=== PATIENT | female | born 1945 | race Hispanic/Latino ===

== ENCOUNTER 2017-09-25 13:42 | Outpatient (CLI) | payer MEDICARE, OTHER | END 2017-09-25 13:43 | disposition home or self-care (01) | LOC: BICRAD 13:42 | PROVIDERS: ATTEND Internal Medicine | DX: R05 Cough (principal); J81.1 Chronic pulmonary edema; I51.7 Cardiomegaly; R09.89 Other specified symptoms and signs involving the circulatory and respiratory systems | CPT/HCPCS: 71046 ==

== ENCOUNTER 2018-02-25 14:09 | Inpatient (IN) | payer MEDICARE, OTHER ==
[2018-02-25] MEDS ORDERED: Ibuprofen 200 MG TAB ONE (14:28)
[2018-02-25 15:48] LABS: #Lymphocytes 0.3 thou/uL (1.20-3.40); #Monocytes 0.7 thou/uL (0.11-0.59); #Neutrophils 5.1 thou/uL (1.40-6.50); %Basophils 0.2 % (0.0-1.0); %Eosinophils 0.5 % (0.0-10.0); %Lymphocytes 5.4 % (21.0-51.0); %Monocytes 11.9 % (0.0-10.0); Hemoglobin 10.3 g/dL (12.0-16.0); INR-International Normal Ratio 1.2; Mean Corpuscular HGB CONC 32.4 g/dL (32.0-36.0); Mean Corpuscular Hemoglobin 33.5 pg (27.0-31.0); Mean Platelet Volume 8.8 fL (7.4-10.4); PTT 30.2 SEC (22.9-36.1); Platelet Count 81 thou/uL (130-400); Prothrombin Time 15.5 SEC (12.0-14.7); RBC Distribution Width 14.4 % (11.5-14.5); Red Blood Cell (RBC) Count 3.06 mill/uL (4.20-5.40); White Blood Cell (WBC) Count 6.2 thou/uL (4.8-10.8)
--- NOTE | 2018-02-25 15:48 | RAD ---
PORTABLE CHEST: Date: 02/25/18 HISTORY: Lower extremity swelling with fever. COMPARISON: 11/23/15. FINDINGS: Heart size is enlarged. Postop sternotomy changes are seen. Pulmonary vessels are prominent centrally . Atherosclerotic changes are seen in the aorta. Some chronic blunting to the right costophrenic angl e is seen, and some chronic lung change. IMPRESSION: Cardiomegaly with chronic lung changes. POS: [facility]
[2018-02-25 15:54] LABS: ALT (SGPT) Less than 7 U/L (8-55); AST (SGOT) 12 U/L (5-34); Albumin 3.7 g/dL (3.4-4.8); Alkaline Phosphatase 91 U/L (40-150); Anion Gap 12 mmol/L (10-20); BUN (Urea Nitrogen) 17 mg/dL (9.8-20.1); Bilirubin, Total 2.2 mg/dL (0.2-1.2); Calc. Creatinine Clearance 0 mL/min (70-130); Calcium 9.1 mg/dL (7.8-10.44); Carbon Dioxide 33 mmol/L (23-31); Chloride 96 mmol/L (98-107); Estimated GFR-MDRD 11; Globulin 2.8 g/dL (2.4-3.5); Glucose 94 mg/dL (83-110); Potassium 3.8 mmol/L (3.5-5.1); Protein, Total 6.5 g/dL (6.0-8.3); Sodium 137 mmol/L (136-145)
--- NOTE | 2018-02-25 15:57 | ULT ---
LEFT LOWER EXTREMITY VENOUS DUPLEX ULTRASOUND INCLUDING COLOR AND SPECTRAL DOPPLER IMAGING: Date: 02/25/18 HISTORY: 73-year-old female with history of left lower extremity pain, swelling, and edema for 2 weeks. TECHNIQUE: Exam performed from groin to ankle including visualized greater saphenous, common femoral, superficia l femoral, profunda femoral, popliteal, trifurcation, and posterior tibial vein regions. FINDINGS: There is a somewhat exaggerated waveform noted. No evidence for intraluminal thrombus. Phasic flow is noted at all levels. IMPRESSION: No evidence for deep venous thrombosis. Somewhat exaggerated waveform. POS: [facility]
[2018-02-25 16:14] LABS: Bilirubin Negative (Negative); Blood, Urine Small (Negative); Clarity TURBID (Clear); Glucose, Urine (Dipstick) Negative (Negative); Leukocyte Large (Negative); Nitrite Negative (Negative); Protein, Urine (Dipstick) 300 mg/dL (Neg-Trace); Urobilinogen 0.2 mg/dL (0.2-1.0); pH, Urine 7.5 (5.0-9.0)
[2018-02-25 16:16] LABS: Squamous Epithelial 21-50 HPF (0-3)
[2018-02-25 16:21] LABS: Pathc Cast-AUWi Flag 7.07 (0-2.49); Yeast-AUWi Flag 130.2 (0-25.0)
[2018-02-25 16:34] LABS: Bacteria/HPF 4+ HPF (None Seen); Hyaline Casts/LPF NONE SEEN LPF (0-3 Hyaline); Manual Microscopic Reviewed? No Path Casts Seen
[2018-02-25] MEDS ORDERED: cefTRIAXone\\ROCEPHIN 1 GM VIAL ONE (17:13)
[2018-02-25] MEDS ORDERED: Vancomycin HCl 1 GM in Premix Bag 1 BAG IVPB SCH (20:00)
[2018-02-26] MEDS ORDERED: Senokot 8.6 MG TAB PO PRN (05:06)
[2018-02-26] MEDS ORDERED: Bisacodyl 5 MG TAB PO PRN (05:06)
[2018-02-26] MEDS ORDERED: Acetaminophen 325 MG TAB PO PRN (05:06)
[2018-02-26] MEDS ORDERED: Bisacodyl 10 MG SUPP PR PRN (05:06)
[2018-02-26] MEDS ORDERED: cefTRIAXone\\ROCEPHIN 1 GM in Sodium Chloride 0.9% 100 ML IVPB SCH (06:00)
[2018-02-26] MEDS: Sevelamer Carbonate 800 MG TAB PO SCH ×4 (08:02→16:48)
[2018-02-26] MEDS: Aspirin 81 mg Enteric Coated Tablet PO SCH (08:04)
[2018-02-26] MEDS: Amlodipine 10 MG TAB PO SCH (08:04)
[2018-02-26] MEDS: hydrALAZINE 25 MG TAB PO SCH ×3 (08:05→20:38)
[2018-02-26] MEDS: Carvedilol 25 MG TAB PO SCH ×2 (08:06→15:24)
[2018-02-26] MEDS: Heparin 5,000 UNITS/ML VIAL SC SCH ×3 (08:18→20:37)
[2018-02-26] MEDS ORDERED: cloNIDine 0.2mg/24 Hour PATCH TD SCH (09:00)
[2018-02-26] MEDS ORDERED: Prevnar 13-Val Conj/PF 0.5 ML SYRINGE IM ONE (09:00)
[2018-02-26] MEDS ORDERED: Epoetin (ESRD) 20,000 UNITS/ML SC SCH (09:30)
[2018-02-26] MEDS: Docusate 100 MG CAP PO SCH ×2 (10:20→20:35)
--- NOTE | 2018-02-26 10:21 | CON ---
DATE OF CONSULTATION: 02/26/2018 HISTORY OF PRESENT ILLNESS: Ms. Augustine is a 73-year-old female with known history of ESRD and reported today due to severe left leg pain. The pain was described as burning sensation. There was also some degree of left leg edema. A Doppler was done which showed no DVT. Further review of the left leg pain may suggest this is a neuropathy. She describes this as burning sensation. In add ition, the patient has had history of neuropathy in the past. We are being consulted for her mainten ance hemodialysis. Her BNP was noted to be elevated. She had a shortened treatment with her dialysi s yesterday and for that reason, we will do a short 2 hour hemodialysis today with fluid removal as t olerated by the patient. REVIEW OF SYSTEMS: Positive for left leg pain. No chest pain or shortness of breath, no nausea, no vomiting, no diarrhea. The patient reports intermittent fever - this is chronic in nature. No abdom inal pain, no nausea, no vomiting. Appetite and energy level is fair. No headache, no sore throat, no hematochezia, no melena, no hematemesis, no syncopal episode. Occasional joint pains. No gross h ematuria, no dysuria. MEDICATIONS: Norvasc 10 mg daily, Ecotrin 81 mg q.a.m., Dulcolax p.r.n., Coreg 12.5 mg b.i.d., ceftr iaxone 1 gram q.24 hours, clonidine patch TTS 2 q. week, Colace 100 mg p.o. b.i.d., heparin 5000 unit s subcu t.i.d., hydralazine 100 mg p.o. t.i.d., losartan 100 mg at bedtime, Renvela 800 mg 3 tabs t.i .d. with meals. PAST MEDICAL HISTORY: 1. ESRD, currently on maintenance hemodialysis of Friday, Friday, Friday. 2. Status post congestive heart failure. 3. History of hypertension. 4. Coronary artery disease. 5. Diabetes mellitus, on diet alone. 6. History of neuropathy. PAST SURGICAL HISTORY: 1. Status post cuffed hemodialysis catheter placement. 2. Status post AV fistula placement. 3. Status post appendectomy. 4. Status post cholecystectomy. 5. Status post exploratory laparotomy. 6. Status post cardiac catheterization. 7. Status post PEG tube placement with subsequent removal. 8. Status post coronary artery bypass graft. SOCIAL HISTORY: Patient lives with her . Lives in [place]. Several children. No history of smoking, no alcohol intake. Status post multiple blood transfusions. No IV drug abuse. Education; high school. ALLERGIES: None. TRAUMA: None. IMMUNIZATIONS: Up to date. HOSPITALIZATIONS: Please see past medical history. FAMILY HISTORY: Positive family history of ESRD. PHYSICAL EXAMINATION: VITAL SIGNS: Blood pressure 145/72, heart rate 66, respiratory rate 18, temperature 98.6, pulse ox 9 3%. GENERAL: Awake, alert, comfortable, not in distress. SKIN: Adequate turgor. HEENT: Pinkish conjunctivae, anicteric sclerae. NECK: No neck mass, no carotid bruits, no JVD. CHEST: No deformities. LUNGS: Decreased breath sounds, no wheezing. HEART: Normal sinus rhythm. No murmur, no gallops or rubs. ABDOMEN: Globular, soft, nontender, no masses. EXTREMITIES: No edema, no deformities. NEUROLOGIC: Awake, oriented to 3 spheres. Moving all extremities. No tremors, no asterixis. LABORATORY: 02/25/2018 - White count 6.2, hemoglobin 10.3. Sodium 137, potassium 3.8, chloride 96, carbon dioxide 33, BUN 17, creatinine 4.06. BNP is 2316, albumin 3.7. Left leg Doppler negative - no DVT. ASSESSMENT AND PLAN: 1. Left leg pain. I suspect this is a neuropathy. Consider Neurontin 300 mg tab once a day. 2. End-stage renal disease, stable. We will continue current maintenance hemodialysis. Due to the shortened treatment with her dialysis yesterday and elevated BNP I will do a 2-hour hemodialysis with this patient. 3. Anemia - Epogen 7500 units subcutaneously every week. 4. Urinary tract infection, on IV ceftriaxone. I agree with current management.
[2018-02-26] MEDS: cefTRIAXone\\ROCEPHIN 1 GM in Sodium Chloride 0.9% 100 ML IVPB SCH (15:31)
[2018-02-26 20:44] VITALS: BP 126/66
[2018-02-26] MEDS ORDERED: Losartan 25 MG TAB PO SCH (21:00)
[2018-02-27 04:38] LABS: #Eosinphils 0.1 thou/uL (0.0-0.7); #Lymphocytes 0.6 thou/uL (1.20-3.40); #Monocytes 0.7 thou/uL (0.11-0.59); #Neutrophils 3.8 thou/uL (1.40-6.50); %Eosinophils 1.4 % (0.0-10.0); %Lymphocytes 11.3 % (21.0-51.0); %Monocytes 13.8 % (0.0-10.0); %Neutrophils 73.5 % (42.0-75.0); Hemoglobin 9.6 g/dL (12.0-16.0); Mean Corpuscular HGB CONC 32.7 g/dL (32.0-36.0); Mean Corpuscular Hemoglobin 33.9 pg (27.0-31.0); Mean Platelet Volume 8.8 fL (7.4-10.4); Platelet Count 83 thou/uL (130-400); Red Blood Cell (RBC) Count 2.83 mill/uL (4.20-5.40); White Blood Cell (WBC) Count 5.2 thou/uL (4.8-10.8)
[2018-02-27 04:52] LABS: Anion Gap 16 mmol/L (10-20); BUN (Urea Nitrogen) 26 mg/dL (9.8-20.1); Calc. Creatinine Clearance 9 mL/min (70-130); Calcium 8.9 mg/dL (7.8-10.44); Carbon Dioxide 27 mmol/L (23-31); Chloride 97 mmol/L (98-107); Estimated GFR-MDRD 8; Glucose 97 mg/dL (83-110); Potassium 4.4 mmol/L (3.5-5.1); Sodium 136 mmol/L (136-145)
[2018-02-27] MEDS ORDERED: Gabapentin 100 MG CAP PO SCH (09:00)
[2018-02-27] MEDS ORDERED: Gabapentin 300 MG CAP PO SCH (09:00)
--- NOTE | 2018-02-27 09:39 | PRG ---
DATE OF SERVICE: 02/27/2018 SUBJECTIVE: Ms. Augustine is a 73-year-old female with ESRD was admitted for severe leg pain . Doppler of the leg was done which showed no DVT. Pain was said to be a burning sensation. I susp ect this is related neuropathy with this patient. She was started on gabapentin. This morning she i s undergoing dialysis. I am at the bedside supervising her dialysis. We are maxing out fluid remova l with this patient of about 3 liters. No other complaints from the patient. She is requesting to g o home. PHYSICAL EXAMINATION: VITAL SIGNS: Blood pressure 126/66, heart rate 59, respiratory 20, temperature 98.1, pulse ox is 93% on room air. GENERAL: Awake, comfortable, not in distress. SKIN: Adequate turgor. HEENT: She has slightly pale conjunctivae, anicteric sclerae. NECK: No neck mass, no carotid bruits, no JVD. CHEST: No deformities. LUNGS: Clear breath sounds, no wheezing, no crackles. HEART: Normal sinus rhythm. No murmur, no gallops or rubs. ABDOMEN: Globular, soft, nontender. No masses. EXTREMITIES: No edema. MEDICATIONS: 02/27/2018 - Reviewed. LABORATORY DATA: 02/27/2018 - White count 5.2, hemoglobin 9.6. Sodium 136, potassium 4.4, chloride 97, carbon dioxide 27, BUN 26, creatinine 5.33, glucose 97, calcium 8.9. ASSESSMENT AND PLAN: 1. End-stage renal disease, already stable. Tolerating current hemodialysis regimen, attempting to remove 3 liters of fluid. 2. Leg pain - left - much improved. Restart gabapentin 300 mg tab once a day. I agree with planned discharge.
[2018-02-27] MEDS: Sevelamer Carbonate 800 MG TAB PO SCH ×2 (10:55→11:20)
[2018-02-27] MEDS: Heparin 5,000 UNITS/ML VIAL SC SCH ×2 (10:56→11:29)
[2018-02-27] MEDS: Aspirin 81 mg Enteric Coated Tablet PO SCH (11:21)
[2018-02-27] MEDS: Carvedilol 25 MG TAB PO SCH (11:22)
[2018-02-27] MEDS: hydrALAZINE 25 MG TAB PO SCH ×2 (11:23→11:30)
[2018-02-27] MEDS: Amlodipine 10 MG TAB PO SCH (11:23)
[2018-02-27] MEDS: Docusate 100 MG CAP PO SCH (11:25)
[2018-02-27 11:30] VITALS: TEMP 98.4
--- NOTE | 2018-02-27 13:03 | PDOC.PN ---
- Subjective Encounter Start Date: 02/26/18 Encounter Start Time: 10:00 -: old records requested/rev Pt seen and examined, chart reviewed in its entirety, this is my frist visit with this patient follow up for leg pain, UTI, AMS, sepsis. Afebrile, no f/c, no N.V.d.C, MS better. tolerating PO. Renal consulted for management of HD - to go tomorrow all systems reviewed adn neg x as above - Objective Resuscitation Status: Resuscitation Status FULL:Full Resuscitation MAR Reviewed: Yes Vital Signs & Weight: Vital Signs (12 hours) Temp Pulse Resp 02/27/18 11:30 98.4 F 59 L 02/27/18 07:17 98.1 F 59 L 20 Result Diagrams: 02/27/18 03:42 02/27/18 03:42 Radiology Reviewed by me: Yes EKG Reviewed by me: Yes Phys Exam - Physical Examination Constitutional: NAD HEENT: PERRLA, moist MMs, sclera anicteric, oral pharynx no lesions Neck: no nodes, no JVD, supple, full ROM Respiratory: no wheezing, no rales, no rhonchi, clear to auscultation bilateral Cardiovascular: RRR, no significant murmur, no rub Gastrointestinal: soft, non-tender, no distention, positive bowel sounds Musculoskeletal: no edema, pulses present Neurological: non-focal, normal sensation, moves all 4 limbs Lymphatic: no nodes Psychiatric: normal affect Skin: no rash, normal turgor, cap refill <2 seconds Dx/Plan (1) UTI (urinary tract infection) Status: Acute Qualifiers: Urinary tract infection type: acute cystitis Hematuria presence: without hematuria Qualified Code(s): N30.00 - Acute cystitis without hematuria Comment: present on admit. Cx pending. CCm with rocephin daily (2) Sepsis Code(s): A41.9 - SEPSIS, UNSPECIFIED ORGANISM Status: Resolved Qualifiers: Sepsis type: sepsis due to unspecified organism Qualified Code(s): A41.9 - Sepsis, unspecified organism Comment: present on admit (3) Metabolic encephalopathy Code(s): G93.41 - METABOLIC ENCEPHALOPATHY Status: Acute Comment: present on admit, improving (4) ESRD (end stage renal disease) on dialysis Code(s): N18.6 - END STAGE RENAL DISEASE; Z99.2 - DEPENDENCE ON RENAL DIALYSIS Status: Chronic (5) Hypertension Code(s): I10 - ESSENTIAL (PRIMARY) HYPERTENSION Status: Chronic Qualifiers: Hypertension type: essential hypertension Qualified Code(s): I10 - Essential (primary) hypertension (6) Secondary hyperparathyroidism of renal origin Code(s): N25.81 - SECONDARY HYPERPARATHYROIDISM OF RENAL ORIGIN Status: Chronic - Plan cont current plan of care, continue antibiotics, out of bed/ambulate * .
[2018-02-27] MEDS: cefTRIAXone\\ROCEPHIN 1 GM in Sodium Chloride 0.9% 100 ML IVPB SCH (13:05)
== END 2018-02-27 14:15 | disposition home or self-care (01) | DRG 871 ==
LOC: ERS 14:09 → T4-A 18:22
PROVIDERS: ADMIT Internal Medicine Infectious Disease; ATTEND Internal Medicine Infectious Disease
DX: A41.9 Sepsis, unspecified organism (principal); G93.41 Metabolic encephalopathy; N18.6 End stage renal disease; N25.81 Secondary hyperparathyroidism of renal origin; I13.2 Hypertensive heart and chronic kidney disease with heart failure and with stage 5 chronic kidney disease, or end stage renal disease; N30.00 Acute cystitis without hematuria; I50.9 Heart failure, unspecified; E11.22 Type 2 diabetes mellitus with diabetic chronic kidney disease; E11.40 Type 2 diabetes mellitus with diabetic neuropathy, unspecified; Z99.2 Dependence on renal dialysis; D64.9 Anemia, unspecified; I25.10 Atherosclerotic heart disease of native coronary artery without angina pectoris; Z90.49 Acquired absence of other specified parts of digestive tract; Z95.1 Presence of aortocoronary bypass graft
CPT/HCPCS: 36415; 51701; 71045; 80048; 80053; 81003; 81015; 83605; 83880; 85025; 85610; 85730; 87040; 87086; 87149; 90471; 90670; 90935; 96365; A4216; A4353; G0009; G0257; J0696; J1644; J3370; J7050; Q4081

== ENCOUNTER 2018-03-31 10:21 | Outpatient (CLI) | payer MEDICARE, OTHER | END 2018-03-31 10:22 | disposition home or self-care (01) | LOC: BICMAMMO 10:21 | PROVIDERS: ATTEND Internal Medicine | DX: Z12.31 Encounter for screening mammogram for malignant neoplasm of breast (principal) | CPT/HCPCS: 77063; 77067 ==

== ENCOUNTER 2018-10-13 07:25 | Inpatient (IN) | payer MEDICARE, OTHER ==
[2018-10-13 08:16] LABS: Bilirubin Negative (Negative); Blood, Urine Large (Negative); Clarity TURBID (Clear); Glucose, Urine (Dipstick) Negative (Negative); Leukocyte Large (Negative); Nitrite Negative (Negative); Protein, Urine (Dipstick) 300 mg/dL (Neg-Trace); Specific Gravity, Urine 1.012 (1.002-1.036); Urobilinogen 0.2 mg/dL (0.2-1.0)
[2018-10-13 08:20] LABS: Pathc Cast-AUWi Flag 45.63 (0-2.49); Yeast-AUWi Flag 2626.8 (0-25.0)
--- NOTE | 2018-10-13 08:21 | CT ---
CT BRAIN NONCONTRAST: HISTORY: 73-year-old female with altered mental status. FINDINGS: There is no midline shift or any other mass effect. There is no evidence of acute intracranial hemor rhage, large cortical infarct, obstructive hydrocephalus, or extraaxial fluid collection. The calvar ium is intact. IMPRESSION: No acute intracranial findings. kavya POS: [facility]
[2018-10-13 08:34] LABS: Bacteria/HPF 4+ HPF (None Seen); Hyaline Casts/LPF 0-3 HYALINE CAST LPF (0-3 Hyaline); Manual Microscopic Reviewed? No Path Casts Seen; Yeast-All Forms None Seen HPF (None Seen)
--- NOTE | 2018-10-13 08:34 | RAD ---
RADIOGRAPH CHEST 1 VIEW: Date: 10/13/2018. Time: 7:05 a.m. HISTORY: A 73-year-old female with hypoxemia. COMPARISON: 02/25/2018. FINDINGS: New finding of airspace densities throughout much of the right lung in patchy distribution. Right ap ex is relatively spared. New finding of thickening of the right pleural stripe that reaches from the base to the apex peripherally. Cardiomegaly again demonstrated. Sternotomy wires. Surgical clips overlying the left side of the cardiac shadow. Pulmonary venous congestion. No pneumothorax. IMPRESSION: 1. Right pleural effusion. 2. Right-sided patchy infiltrates which could be pneumonia, atelectasis, or a combination of both. 3. Cardiomegaly and pulmonary venous congestion. JAYCE [] POS: [facility]
[2018-10-13 08:35] LABS: RBC/HPF GREATER THAN 50-TNTC HPF (0-3)
[2018-10-13 08:46] LABS: #Lymphocytes 0.5 thou/uL (1.20-3.40); #Monocytes 0.6 thou/uL (0.11-0.59); #Neutrophils 5.5 thou/uL (1.40-6.50); %Basophils 0.2 % (0.0-1.0); %Eosinophils 0.2 % (0.0-10.0); %Monocytes 9.4 % (0.0-10.0); %Neutrophils 83.3 % (42.0-75.0)
[2018-10-13 08:57] LABS: ALT (SGPT) Less than 7 U/L (8-55); AST (SGOT) 21 U/L (5-34); Alkaline Phosphatase 52 U/L (40-150); Anion Gap 20 mmol/L (10-20); BUN (Urea Nitrogen) 38 mg/dL (9.8-20.1); Bilirubin, Total 2.5 mg/dL (0.2-1.2); Calc. Creatinine Clearance 0 mL/min (70-130); Calcium 8.4 mg/dL (7.8-10.44); Carbon Dioxide 22 mmol/L (23-31); Chloride 99 mmol/L (98-107); Estimated GFR-MDRD 6; Globulin 2.5 g/dL (2.4-3.5); Glucose 84 mg/dL (83-110); Lipase 7 U/L (8-78); Phosphorus 3.9 mg/dL (2.3-4.7); Potassium 5.2 mmol/L (3.5-5.1); Protein, Total 5.5 g/dL (6.0-8.3); Sodium 136 mmol/L (136-145)
[2018-10-13 09:21] LABS: CKMB 3.6 ng/mL (0-6.6)
[2018-10-13 09:28] LABS: Band 17 % (5-11); Hemoglobin 10.7 g/dL (12.0-16.0); Lymphocytes 10 % (21-51); MDiff Complete? YES; Mean Corpuscular HGB CONC 29.9 g/dL (32.0-36.0); Mean Corpuscular Hemoglobin 31.9 pg (27.0-31.0); Mean Platelet Volume 10.3 fL (7.4-10.4); Monocytes 2 % (0-10); Neutrophil 70 % (42-75); Platelet Count 68 thou/uL (130-400); Platelet Morphology Comment Appears Decreased; Polychromasia SLIGHT = 2-3 cells (100X) (0-2/hpf); RBC Distribution Width 14.5 % (11.5-14.5); Reactive Lymphocytes 1 % (0-10); Red Blood Cell (RBC) Count 3.35 mill/uL (4.20-5.40); Tear Drops SLIGHT = 2-5 cells (100X) (0-1/hpf); White Blood Cell (WBC) Count 6.6 thou/uL (4.8-10.8)
[2018-10-13] MEDS ORDERED: Sodium Chloride 0.9% 100 ML ONE (11:23)
[2018-10-13] MEDS ORDERED: Piperacillin/Tazobactam 3.375 GM VIAL ONE (11:23)
[2018-10-13] MEDS ORDERED: Senokot S 8.6-50 MG TAB PO PRN ×2 (12:26→12:27)
[2018-10-13] MEDS ORDERED: Calcium Carbonate 500 MG ChewTAB PO PRN (12:26)
[2018-10-13] MEDS ORDERED: Ondansetron PF 4 MG/2 ML Vial IVP PRN ×2 (12:26→12:27)
[2018-10-13] MEDS ORDERED: cloNIDine 0.1 MG TAB PO PRN (12:27)
[2018-10-13] MEDS ORDERED: hydrALAZINE 20 MG/ML VIAL SLOW IVP PRN (12:27)
[2018-10-13] MEDS ORDERED: Nitroglycerin 0.4 MG TAB (25 Tab Bottle) SL PRN (12:27)
[2018-10-13] MEDS ORDERED: Bisacodyl 5 MG TAB PO PRN (12:27)
[2018-10-13] MEDS ORDERED: Benzonatate 100 MG CAP PO PRN (12:27)
[2018-10-13] MEDS ORDERED: Diabetic Tussin 200 MG/10 ML UDCUP PO PRN (12:27)
[2018-10-13 13:10] LABS: Troponin I 3.302 ng/mL (< 0.028)
[2018-10-13] MEDS ORDERED: Aspirin 325 mg Enteric Coated Tablet PO SCH (13:45)
[2018-10-13] MEDS ORDERED: Sodium Chloride 0.9% 250 ML IV SCH (14:15)
[2018-10-13] MEDS ORDERED: Aspirin 325 MG TAB ONE (14:51)
--- NOTE | 2018-10-13 14:54 | HP ---
PRIMARY CARE PHYSICIAN: Chica Early MD. CHIEF COMPLAINT: Altered mental status and lethargy. HISTORY OF PRESENTING ILLNESS: Ms. Augustine is a pleasant 73-year-old female with past medical history of end-stage renal disease, on hemodialysis, as well as coronary artery disease and chronic diastolic congestive heart failure, as well as dyslipidemia and hypertension, who presented to the emergency room with above-mentioned complaint. History is mainly obtained by the patient's son, who is present in the room. The patient is still feeling very weak and does not participate much. Electronic medical records have been reviewed. The patient was last admitted to our facility in June 2018; at which time, she was treated for altered mental status secondary to urinary tract infection. Ms. Augustine's son reports that they went on a cruise last weekend. She has her dialysis on Friday and of last week, which was an extra dialysis and they went on the cruise on . She came back and got dialysis done on Friday that was yesterday. The last two days on the cruise was rough for her. She was very nauseated from the sea sickness and has been eating poorly. She did not have any active diarrhea or vomiting or abdominal pain. When she came back, she became more and more lethargic. Yesterday after her dialysis, they could not remove any fluid because her blood pressure was low. With increased lethargy, the family brought her to the emergency room today. In the emergency room, upon presentation, her blood pressure was 85/45. She received about 300 mL of IV fluids. Workup was concerning for another urinary tract infection with multiple wbc's and bacteria, though it seems to be a very contaminated sample. Her platelet count was 68, which seems to be slightly lower than baseline. Otherwise, no significant electrolyte abnormality was seen. Her cardiac enzymes, however, revealed elevated troponin of 1.502 with repeat troponin of 3.302. She was given Zosyn for possible UTI as well as symptomatic treatment and is now being admitted for further workup to rule out stroke as well as to check for other causes of altered mental status. Her CT scan of the brain in the emergency room is negative for acute hemorrhage or infarction. Chest x-ray showed mild pulmonary vascular congestion, possible atelectasis versus infiltrate. CODE STATUS: Full code, discussed with the patient herself. She reports that she is feeling a little bit better. PAST MEDICAL HISTORY: 1. Coronary artery disease. 2. End-stage renal disease, on hemodialysis. 3. Hypertension. 4. Dyslipidemia. 5. Chronic diastolic congestive heart failure. 6. GERD. 7. Chronic hypoxemic respiratory failure, on home oxygen. PAST SURGICAL HISTORY: 1. CABG x4 vessels. 2. Partial gastrectomy for polyposis. 3. Appendectomy. 4. Cholecystectomy. 5. Right upper extremity dialysis fistula. ALLERGIES: TO; 1. IODINATED CONTRAST. 2. MINOXIDIL. 3. MORPHINE. 4. PENICILLIN. 5. PHENERGAN. FAMILY HISTORY: No history of immune disorders or coronary artery disease. Few members with hypertension. SOCIAL HISTORY: She is mobile at baseline and is independent with her ADLs and IADLs. No history of drug, tobacco, or alcohol abuse. She is and lives with the family and her son lives with her. HOME MEDICATIONS: 1. Carvedilol 12.5 mg p.o. b.i.d. 2. Renvela 800 mg p.o. t.i.d. 3. Losartan 100 mg daily. 4. Hydralazine 100 mg three times a day. REVIEW OF SYSTEMS: A 12-point review of system is done. It is negative except for those mentioned in the history and physical. LABORATORY DATA: Her CBC shows WBC 6.6, hemoglobin 10.7, platelet count of 68, hematocrit 35.6, neutrophils 83%. Serum chemistry showed potassium of 5.2, BUN 38, creatinine 7.14, total bilirubin 2.5. Liver enzymes unremarkable. CK-MB normal. Troponin 1.502 with repeat troponin of 3.302. Lipase normal. Urinalysis; multiple squamous epithelial cells, wbc's, leukocyte esterase, and bacteria. DIAGNOSTIC DATA: Chest x-ray by my review shows mild pulmonary vascular congestion and cardiomegaly. CT scan of the brain is negative for any evidence of acute hemorrhage or infarction. A 12-lead EKG by my review shows some PACs. Left axis deviation, no acute ST or T-wave changes. PHYSICAL EXAMINATION: VITAL SIGNS: Upon presentation, blood pressure 85/45, pulse of 68, respirations 14, saturating 97% on 2 L oxygen, temperature 98.2. GENERAL: She appears weak and lethargic, but is awake, alert, and oriented x3. She is able to follow simple commands. HEENT: Mucous membrane is slightly dry. No oropharyngeal exudate or erythema. Head is normocephalic and atraumatic. Pupils are equal and reactive to light and accommodation. Extraocular movement intact. NECK: Supple without any lymphadenopathy, JVD, or bruit. CHEST: Clear to auscultation without any wheezing, rales, or rhonchi, but diminished sounds to both bases. CARDIOVASCULAR: Systolic murmurs were present 3/6 in intensity. ABDOMEN: Soft, nontender, and nondistended. EXTREMITIES: Some swelling and erythema without any significant warmth to right lower extremity, which the family reports is chronic for her. She has had a vascular evaluation by Dr. España for this, which was normal. Right AV fistula with normal thrill is noticed. NEUROLOGICAL: Nonfocal. She has generalized weakness, but no focal deficits. SKIN: Free of any rashes or bruises. PSYCHIATRIC: Normal affect. IMPRESSION AND PLAN: 1. Altered mental status. The etiology is unclear at this time. The patient did have dialysis yesterday, uremia is less likely. She might have a urinary tract infection or gastrointestinal infection after being on the cruise recently. Her cardiac enzymes are also elevated, so ACS also cannot be ruled out. She has received a little bit of IV fluids in the emergency room that made her feel better, so dehydration and hypotension can also be contributing to her presentation. All in all, we will start her on gentle IV fluid hydration after discussing with Nephrology and maybe give her 3-500 mL more of IV fluids. We will rule out stroke with MRI of the brain and do an echocardiogram with a Neurology consult as well. Continue to trend serial cardiac enzymes. We will give her a full dose aspirin and obtain a transthoracic echocardiogram. We will request consultation with Cardiology with regard to her elevated troponin. The patient is quite comfortable without any EKG changes clinically suggests that she has ACS. She is a poor candidate for anticoagulation given thrombocytopenia, so we will hold any heparin, Lovenox, or any other thrombolytics for now. Recheck troponin later. a. We also continued the Zosyn renally dosed: For her urinary tract infection. We will send for urine culture as well as blood culture. There is no evidence to suggest sepsis for now. Continue dialysis as per Nephrology. Dr. Wiggins has been notified of her admission. b. Check BNP. 2. Elevated troponin. Continue to trend and give her a full dose aspirin. Echocardiogram has been ordered. She is not a candidate for any thrombolytics given the thrombocytopenia. 3. Hyperkalemia, mild in nature. Dialysis as per Nephrology. 4. Thrombocytopenia seems to be chronic. No active bleed is noticed. 5. Anemia of chronic kidney disease, she is at baseline. We will monitor H and H closely. 6. Elevated bilirubin. The patient has no symptoms to suggest that she has cholecystitis or biliary colic. 7. Urinary tract infection. The urine sample appears contaminated, but she is at high risk for getting a urinary tract infection. She also may or may not have some pneumonia ongoing. We will treat her with Zosyn, which will cover for both. 8. End-stage renal disease. Continue hemodialysis and monitor renal function on a daily basis. Avoid any nephrotoxic medications. 9. History of chronic diastolic congestive heart failure. The patient appears on the dry side at this time. We will give her 250 mL gentle IV fluids and check a BNP. Continue cardiac prudent medications once the dosage is confirmed. At this time, her blood pressure is on the lower side, so we will hold her carvedilol, hydralazine, and losartan. 10. History of hypertension. Hold antihypertensives as her blood pressure is low. 11. History of coronary artery disease. 12. History of secondary hyperparathyroidism of renal origin. 13. Code status: Full code, discussed with the patient. DISPOSITION: Ms. Augustine was currently being admitted to the hospital for altered mental status: Rule out stroke and workup for non-ST elevation HI. Estimated length of stay at this time is 2 to 3 midnights. Further management will depend upon her clinical course. Job ID: [id number]
--- NOTE | 2018-10-13 15:42 | MRI ---
MRI BRAIN WITHOUT CONTRAST: HISTORY: TIA. FINDINGS: Correlation is made with a CT scan from earlier today. No restricted diffusion is seen. There are a few scattered foci of T2 prolongation in the periventri cular white matter consistent with mild chronic small-vessel ischemic disease. No evidence of infarc t, acute hemorrhage, midline shift, or abnormal extraaxial fluid collections is seen. There are a fe w hemosiderin deposits noted on the gradient sequences in the cerebral hemispheres and the left-sided cerebellar hemisphere likely due to cavernomas. The ventricular size is appropriate and the basilar cisterns patent. IMPRESSION: No evidence of acute intracranial process. POS: [facility]
[2018-10-13 17:29] LABS: Troponin I 5.499 ng/mL (< 0.028)
[2018-10-13] MEDS ORDERED: Piperacillin/Tazobactam 3.375 GM in Sodium Chloride 0.9% 100 ML IVPB SCH (18:00)
[2018-10-13] MEDS ORDERED: Famotidine 20 MG TAB ONE (22:06)
[2018-10-13] MEDS ORDERED: Piperacillin/Tazobactam 2.25 GM in Sodium Chloride 0.9% 100 ML IVPB SCH (23:59)
[2018-10-14] MEDS: Famotidine/PF 20 mg/2ml Vial SLOW IVP SCH ×2 (00:28→20:35)
[2018-10-14] MEDS: Acetaminophen 325 MG TAB PO PRN ×2 (00:31→22:00)
[2018-10-14 01:14] VITALS: BMI 22.2
[2018-10-14 05:18] LABS: #Lymphocytes 0.5 thou/uL (1.20-3.40); #Monocytes 0.6 thou/uL (0.11-0.59); %Basophils 0.2 % (0.0-1.0); %Eosinophils 0.5 % (0.0-10.0); %Lymphocytes 7.1 % (21.0-51.0); %Neutrophils 84.2 % (42.0-75.0); Hemoglobin 10.4 g/dL (12.0-16.0); Mean Corpuscular HGB CONC 31.5 g/dL (32.0-36.0); Mean Platelet Volume 10.4 fL (7.4-10.4); Platelet Count 77 thou/uL (130-400); RBC Distribution Width 14.6 % (11.5-14.5); Red Blood Cell (RBC) Count 3.17 mill/uL (4.20-5.40); White Blood Cell (WBC) Count 7.1 thou/uL (4.8-10.8)
[2018-10-14 05:22] LABS: Anion Gap 19 mmol/L (10-20); BUN (Urea Nitrogen) 47 mg/dL (9.8-20.1); Calc. Creatinine Clearance 6 mL/min (70-130); Calcium 8.7 mg/dL (7.8-10.44); Carbon Dioxide 24 mmol/L (23-31); Chloride 99 mmol/L (98-107); Estimated GFR-MDRD 5; Glucose 109 mg/dL (83-110); Potassium 5.1 mmol/L (3.5-5.1); Sodium 137 mmol/L (136-145)
[2018-10-14] MEDS ORDERED: Carvedilol 25 MG TAB PO SCH (09:00)
[2018-10-14] MEDS ORDERED: Sevelamer Carbonate 800 MG TAB PO SCH (09:00)
[2018-10-14] MEDS: Carvedilol 6.25 MG TAB PO SCH ×2 (09:46→20:35)
[2018-10-14] MEDS: Sevelamer Carbonate 800 MG TAB PO SCH ×3 (09:46→20:35)
[2018-10-14] MEDS: Aspirin 325 mg Enteric Coated Tablet PO SCH (11:45)
[2018-10-14 14:17] LABS: Critical Call Chem Troponin I RESULT DECREASING; Troponin I 5.161 ng/mL (< 0.028)
--- NOTE | 2018-10-14 15:06 | CON ---
DATE OF CONSULTATION: HISTORY OF PRESENT ILLNESS: Mrs. Augustine is a 73-year-old female with ESRD, was admitted for mental status change. An MRI of the brain showed no acute intracranial abnormality. Of interest, this patient went to a cruise and she was telling me that she over restricted her fluid and p.o. intake. She may have some degree of volume depletion. She is currently undergoing dialysis. We are minimizing fluid removal with her. Her mentation has much improved. She tells me she is feeling better. She denies any chest pain or shortness of breath. REVIEW OF SYSTEMS: No chest pain or shortness of breath. Positive for mental status change. No nausea. No vomiting. No fever or chills. No gross hematuria. No dysuria. No urinary frequency. No abdominal pain. No sore throat. No headache. Positive for generalized weakness. Appetite is decreased. MEDICATIONS: Ecotrin 325 mg once a day, Tessalon Perles p.r.n., Pepcid 20 mg IV daily, hydralazine 10 mg IV q.4 p.r.n., Zofran 4 mg q.6 p.r.n. PAST MEDICAL HISTORY: Includes the following, 1. ESRD-on maintenance hemodialysis Friday, Friday, and Friday. 2. Status post CHF. 3. Type 2 diabetes mellitus, controlled by diet. 4. History of neuropathy. 5. Coronary artery disease. 6. Hypertension. PAST SURGICAL HISTORY: Status post exploratory laparotomy, status post cuffed dialysis catheter placement, status post cholecystectomy, status post appendectomy, status post AV fistula placement, status post cardiac cath, status post PEG tube placement and subsequent removal, status post CABG. SOCIAL HISTORY: The patient lives with her in [place], several children. No history of smoking. No alcohol intake. Status post multiple blood transfusions. No IV drug abuse. Education, high school. ALLERGIES: NONE. TRAUMA: None. IMMUNIZATION: Up-to-date. HOSPITALIZATIONS: Please see past medical history. FAMILY HISTORY: Positive family history of ESRD. PHYSICAL EXAMINATION: VITAL SIGNS: Blood pressure is 120/70 with a heart rate of 70. GENERAL: Awake, alert, comfortable, not in overt distress. SKIN: Adequate turgor. HEENT: She has pinkish conjunctivae. Anicteric sclerae. No neck mass. No carotid bruits. No JVD. CHEST: No deformities. LUNGS: Clear breath sounds. No wheezing. No crackles. HEART: Normal sinus rhythm. No murmur. No gallops. No rubs. ABDOMEN: Globular, soft, nontender. No masses. EXTREMITIES: Right leg, no edema. Left leg mildly swollen. Mild erythema noted. Tender on deep palpation of the cough. LABORATORY DATA: Laboratories of October 14, 2018, white count 7.1, hemoglobin 10.4. Sodium 137, potassium 5.1, chloride 99, carbon dioxide 24, BUN 47, creatinine 7.88, glucose 109, calcium 8.7. Troponin on October 13, 2018, troponin I elevated at 5.499. BNP is noted at 3519. ASSESSMENT AND PLAN: 1. End-stage renal disease, stable. We will continue current maintenance hemodialysis. We will attempt to do fluid removal due to the elevated BNP. 2. Elevated troponin I. Rule out myocardial infarction for this patient. Cardiology consult as needed. Currently, the patient is asymptomatic, denying any chest pain or shortness of breath. 3. Left leg swelling and pain-the patient tells me that she fell down and hurt her left leg from a wheelchair. We will also rule out a DVT with this patient. An x-ray of the left leg as well as Doppler of the left leg have been ordered. 4. Borderline anemia. We will continue to observe. Job ID: [id number]
--- NOTE | 2018-10-14 15:08 | PDOC.PN ---
- Subjective Encounter Start Date: 10/14/18 Encounter Start Time: 15:06 Subjective: seen and examined in HD.c/o leg pain otherwise feels a litle better - Objective Resuscitation Status - Order Detail: 10/13/18 13:33 Resuscitation Status Routine Resuscitation Status: FULL: Full Resuscitation Discussed with: discussed w pt, and son PARESH Reviewed: Yes Vital Signs & Weight: Vital Signs (12 hours) Temp Pulse Pulse Pulse Resp BP BP 10/14/18 14:15 71 67 151/68 H 158/66 H 10/14/18 11:40 97.5 F L 75 18 10/14/18 04:00 98 F 60 12 BP Pulse Ox 10/14/18 14:15 10/14/18 11:40 160/75 H 94 L 10/14/18 04:00 133/67 97 Weight Weight 125 lb 12.8 oz Result Diagrams: 10/14/18 04:47 10/14/18 04:47 Additional Labs: Laboratory Tests 02/25/18 02/27/18 10/13/18 15:17 03:42 08:25 Plt Count 81 L 83 L Troponin I 1.502 H* 10/13/18 10/13/18 10/13/18 08:25 12:28 16:49 Plt Count 68 L Troponin I 3.302 H* 5.499 H* 10/14/18 04:47 Plt Count 77 L Troponin I Phys Exam - Physical Examination Constitutional: NAD weak and tired looking HEENT: PERRLA, moist MMs, sclera anicteric, oral pharynx no lesions Neck: no nodes, no JVD, supple, full ROM Respiratory: no wheezing, no rales, no rhonchi Cardiovascular: RRR, no significant murmur, no rub Gastrointestinal: soft, non-tender, no distention, positive bowel sounds Musculoskeletal: pulses present, edema present (erythema and warmth to left leg w tenderness) Neurological: non-focal, normal sensation, moves all 4 limbs Psychiatric: normal affect, A&O x 3 Skin: no rash Dx/Plan (1) NSTEMI (non-ST elevated myocardial infarction) Code(s): I21.4 - NON-ST ELEVATION (NSTEMI) MYOCARDIAL INFARCTION Status: Acute (2) UTI (urinary tract infection) Status: Acute Qualifiers: Urinary tract infection type: acute cystitis Hematuria presence: without hematuria Qualified Code(s): N30.00 - Acute cystitis without hematuria Comment: present on admit. Cx shows E.Coli. CCm with zosyn daily (3) Metabolic encephalopathy Code(s): G93.41 - METABOLIC ENCEPHALOPATHY Status: Acute Comment: present on admit, improving (4) Physical deconditioning Code(s): R53.81 - OTHER MALAISE Status: Acute (5) ESRD (end stage renal disease) on dialysis Code(s): N18.6 - END STAGE RENAL DISEASE; Z99.2 - DEPENDENCE ON RENAL DIALYSIS Status: Chronic (6) Hypertension Code(s): I10 - ESSENTIAL (PRIMARY) HYPERTENSION Status: Chronic Qualifiers: Hypertension type: essential hypertension Qualified Code(s): I10 - Essential (primary) hypertension (7) Pancytopenia Code(s): D61.818 - OTHER PANCYTOPENIA Status: Chronic Comment: stable counts (8) Secondary hyperparathyroidism of renal origin Code(s): N25.81 - SECONDARY HYPERPARATHYROIDISM OF RENAL ORIGIN Status: Chronic - Plan PT/OT, respiratory therapy, incentive spirometry, out of bed/ambulate, DVT proph w/SCDs Suspect NSTEMi w up trending troponins.cont ASA. -: not a cabdidate for Heparin/lovenox d/t thrombocytopenia.ECHO.cardio consul -: cont Coreg.restart losartan * . Review of Systems - Review of Systems Constitutional: weakness, malaise. negative: fever, chills, sweats, other ENT: negative: Ear Pain, Ear Discharge, Nose Pain, Nose Discharge, Nose Congestion, Mouth Pain, Mouth Swelling, Throat Pain, Throat Swelling, Other Respiratory: negative: Cough, Dry, Shortness of Breath, Hemoptysis, SOB with Excertion, Pleuritic Pain, Sputum, Wheezing Cardiovascular: negative: chest pain, palpitations, orthopnea, paroxysmal nocturnal dyspnea, edema, light headedness, other Gastrointestinal: negative: Nausea, Vomiting, Abdominal Pain, Diarrhea, Constipation, Melena, Hematochezia, Other Genitourinary: negative: Dysuria, Frequency, Incontinence, Hematuria, Retention , Other Musculoskeletal: Leg Pain. negative: Neck Pain, Shoulder Pain, Arm Pain, Back Pain, Hand Pain, Foot Pain, Other Neurological: negative: Weakness, Numbness, Incoordination, Change in Speech, Confusion, Seizures, Other - Medications/Allergies Allergies/Adverse Reactions: Allergies Allergy/AdvReac Type Severity Reaction Status Date / Time diphenhydramine HCl Allergy Verified 11/20/15 00:09 [From Benadryl] minoxidil Allergy Verified 11/20/15 00:09 morphine Allergy Verified 11/20/15 00:09 promethazine HCl Allergy Verified 11/20/15 00:09 [From Phenergan] Medications: Current Medications Acetaminophen (Tylenol) 650 mg PO Q4H PRN PRN Reason: Headache/Fever/Mild Pain (1-3) Last Admin: 10/14/18 00:31 Dose: 650 mg Aspirin (Ecotrin) 325 mg PO DAILY [facility] Last Admin: 10/14/18 11:45 Dose: 325 mg Benzonatate (Tessalon) 100 mg PO Q6H PRN PRN Reason: Cough Bisacodyl (Dulcolax) 10 mg PO DAILYPRN PRN PRN Reason: Constipation Calcium Carbonate (Tums) 1,000 mg PO Q4H PRN PRN Reason: Heartburn or Indigestion Carvedilol (Coreg) 12.5 mg PO BID [facility] Last Admin: 10/14/18 09:46 Dose: Not Given Clonidine (Catapres) 0.1 mg PO Q4H PRN PRN Reason: SBP > 160____ Famotidine (Pepcid) 20 mg SLOW IVP Q24HR [facility] Last Admin: 10/14/18 00:28 Dose: Not Given Guaifenesin (Robitussin Sf) 200 mg PO Q4H PRN PRN Reason: Cough Hydralazine HCl (Apresoline) 10 mg SLOW IVP Q4H PRN PRN Reason: SBP > 180 and HR < 70 Nitroglycerin (Nitrostat) 0.4 mg SL Q5MIN PRN PRN Reason: Chest Pain Ondansetron HCl (Zofran) 4 mg IVP Q6H PRN PRN Reason: Nausea/Vomiting Senna/Docusate Sodium (Senokot S) 2 tab PO BID PRN PRN Reason: Constipation Sevelamer Carbonate (Renvela) 2,400 mg PO TID [facility] Last Admin: 10/14/18 11:45 Dose: 2,400 mg Sodium Chloride (Flush - Normal Saline) 10 ml IVF Q12HR [facility] Last Admin: 10/14/18 09:46 Dose: Not Given Sodium Chloride (Flush - Normal Saline) 10 ml IVF PRN PRN PRN Reason: Saline Flush
--- NOTE | 2018-10-14 16:51 | ULT ---
LEFT LOWER EXTREMITY VENOUS DOPPLER ULTRASOUND: Date: 10/14/18 HISTORY: Left lower extremity swelling and pain. FINDINGS: Multiple longitudinal and transverse images of the left lower extremity venous system obtained using a multihertz linear array transducer. Real-time, color flow, and spectral waveform Doppler analysis d emonstrates no evidence of acute or old clot seen in the left common femoral, superficial femoral, fe moral profunda, popliteal, posterior tibial vein, post-trifurcation vein, and left greater saphenous vein. IMPRESSION: No evidence of left lower extremity deep venous thrombosis. POS: [facility]
--- NOTE | 2018-10-14 18:49 | RAD ---
FRONTAL AND LATERAL IMAGING LEFT TIBIA AND FIBULA: 10/14/18 COMPARISON: None. HISTORY: Pain, swelling, fall. FINDINGS: There is vascular calcification throughout the imaged left lower extremity. Postoperative clips are n oted adjacent to the left knee/proximal tibia. No displaced fracture or evidence of dislocation. IMPRESSION: Chronic findings as above. No displaced fracture or dislocation. POS: [facility]
--- NOTE | 2018-10-14 19:47 | CON ---
DATE OF CONSULTATION: 10/14/2018 TYPE OF CONSULTATION: Cardiology. PRIMARY CARE DOCTOR: Dr. Chica Early. PRIMARY SCHOOL AGE TEACHER: Dr. Ronquillo. REASON FOR CARDIOLOGY CONSULT: Non-STEMI. HISTORY OF PRESENT ILLNESS: Ms. Augustine is a very present 73-year-old female with a significant history of coronary artery disease with a history of CABG x4 in 2000, hypertension, hyperlipidemia, and end-stage renal disease with hemodialysis on Friday, Friday, and Friday, which is managed by Dr. Wiggins. The patient was brought to emergency department via EMS due to altered mental status. She went to cruise last weekend. Prior to that, the Friday, she had hemodialysis prior to the cruise trip and Friday, she was on the cruise; however, she could not hold any fluid or food during that trip due to the seasick. Once she came back on Friday, she had a dialysis. 0.5 L of fluid was pulled at that time and same day, after she went home, she went to bed right away because she felt very weak. Next morning, around 2 o'clock in the morning on Friday, she woke up, but she was so coherent and she was confused. The patient's and the patient's son thought she started having recurrent UTI, which caused a similar symptom before. With those reasons, they called EMS and the patient was transferred to emergency department for further evaluation and treatment. At the ER, the patient was found to have severe dehydration. After the patient received IV fluid, the patient's mental status improved and today during the initial Cardiology consult assessment, the patient is alert and oriented x4. According to family members, her mental status went back to 100% normal for the patient. The patient denied any chest pain, heaviness, tightness, shortness, palpitation, fluttering in her chest, dizziness, lightheadedness, nausea, vomiting, or any other cardiac complaints. The family member reports that she never complained of those symptoms prior to this admission. She had a swelling to the left lower extremity secondary to a fall and she was told that her muscle is injured, by her primary care doctor. The patient underwent the CABG x4 in 2000. She had underwent a cardiac catheterization in 2011, which showed 3-vessel CAD, patent internal mammary to LAD, patent radial graft to the right coronary, with good flow, but no longer patent in the circumflex distribution with heavily calcified vessel not amendable to percutaneous therapy and also small to medium diagonal branch, which is not grafted due to the severe narrowing and heavily calcified, and continued medical treatment only at that point. An echocardiogram was done in October 2017, which showed EF 50% to 55%, moderate concentric LVH, moderate trace aortic valve regurgitation, mild tricuspid regurgitation, and PA systolic pressure was 54 mmHg. The patient had a vein study done in February 2018, shows no reflux, no DVT. The patient has a history of left GSV ablation. PAST MEDICAL HISTORY: 1. Coronary artery disease. 2. Hypertension. 3. Hyperlipidemia. 4. End-stage renal disease with hemodialysis on Friday, Friday, and Friday, which is managed by Dr. Wiggins. 5. History of diabetes, which she no longer have since she lost weight. 6. She had a history of severe gastroparesis. PAST SURGICAL HISTORY: 1. CABG x4 in 2000. 2. Left GSV ablation. 3. Dialysis access placement. 4. Appendectomy. 5. Cholecystectomy. 6. Cataract. 7. The patient had right coronary endarterectomy in 2000. FAMILY HISTORY: The patient's mother due to myocardial infarction at age of 70s and she also had a history of CVA. The patient's older son due to complication from diabetes. SOCIAL HISTORY: The patient is , living with her and son. She had 3 children and 2 of them are alive and healthy. The patient denies any EtOH, tobacco abuse, or illicit drug abuse. She drinks less than 1 cup of coffee a day and also the Dr. Pro 1 can per week, but according to family, she does not drink much fluids. ALLERGIES: SHE IS ALLERGIC TO PHENERGAN, MINOXIDIL, MORPHINE, AND IODINE. HOME MEDICATIONS: 1. Aspirin 81 mg once a day. 2. Losartan 100 mg once a day. 3. Carvedilol 12.5 mg twice a day. 4. Renvela 800 mg 3 tablets a day. 5. Hydralazine 100 mg 3 times a day. 6. Amlodipine 10 mg once a day. 7. Clonidine 0.1 mg every 4 hours as needed. REVIEW OF SYSTEMS: 12-point review of systems negative unless otherwise mentioned. The patient uses a cane at home, but she uses a wheelchair when she go out due to her legs easy to giving out. She has lightheadedness with quick movement. PHYSICAL EXAMINATION: VITAL SIGNS: Blood pressure 160/75, temperature 97.5, pulse is 75, sinus rhythm, respiratory rate 18, O2 saturation 94% with 3 L nasal cannula. GENERAL: The patient is alert and oriented x4, not in acute distress. HEAD: Normocephalic, atraumatic. EYES: Extraocular muscle movement intact. The patient has a history of cataract surgery. ENT AND MOUTH: Oral and nasal mucosa moist without lesion. NECK: No JVD. Normal range of motion. RESPIRATORY: Clear to auscultate bilaterally, but diminished at the bases. CARDIOVASCULAR: Regular rate and rhythm. Normal S1 and S2. There is no S3, or S4. No significant murmur, hives, or thrills noted. 2+ pulses in bilateral upper and lower extremities. No edema, swelling to the left lower extremity close to the ankle. Carotid pulses are present without bruit or thrill. ABDOMEN: Soft, nontender. No mass to palpate. SKIN: Warm and dry. No bruise, lesion, or rash noted. Also, she has an AV fistula to the right upper extremity. MUSCULOSKELETAL: The patient is able to move all extremities. The patient denied claudication. NEUROLOGIC: The patient is alert and oriented x4. Nonfocal. PSYCHIATRIC: The patient's mood is appropriate. LABORATORY DATA: WBC 7.1, hemoglobin 10.4, hematocrit 33.2, platelets 77. Chemistry; sodium 137, potassium 5.1, BUN 47, creatinine 7.88, magnesium 2.0, phosphorus 3.9. AST 21, ALT 7. CK-MB 3.6. Troponin 1.502, 3.302, and 5.499. BNP 3519.5. Chest x-ray shows right pleural effusion, right-sided patchy infiltrate which could be a pneumonia, atelectasis, or a combination of both, and pulmonary vein congestion. Brain MRI; no evidence of acute intracranial process. The patient's urine culture showed positive to E coli. ASSESSMENT AND PLAN: 1. Elevated troponin level. The patient's troponin was elevated up to 5.499 at around 1700 yesterday on October 13, 2018, which is possible due to severe dehydration. The patient's 12-point EKG shows sinus rhythm with no ST-segment change or T-wave inversion. We would like to recheck another troponin level today to see how the troponin is trending. The patient had a cardiac catheterization in 2011, which shows occluded vein graft to the OM, calcified vessel, tortuous, and medical treatment only. We would like to continue to monitor the patient on the telemetry. 2. Altered mental status, which is possible due to dehydration or possible urinary tract infection. At this moment, the patient's mental status is back to the normal statis. 3. Coronary artery disease with history of coronary artery bypass graft x4 in 2000. The patient's condition is stable at this moment. The patient denies any cardiac complaints. We would like to continue to monitor on the telemetry. She is on carvedilol 12.5 mg b.i.d., aspirin 325 once a day at this moment. She is not on statin at this moment; however, the patient's LDL in February 2018 showed 70. 4. Hypertension. The patient's blood pressure is stable at this moment. We would like to continue to monitor with the current medication. 5. End-stage renal disease with hemodialysis on Friday, Friday, and Friday, which is managed by Dr. Wiggins. 6. Possible urinary tract infection. The patient is on Zosyn, which is managed by primary care doctor. Thank you very much for allowing the Cardiology Service to participate in the care of this patient. We will follow the patient with the patient's care team and make further recommendations as appropriate. Job ID: [id number]
[2018-10-15 06:27] LABS: Anion Gap 17 mmol/L (10-20); BUN (Urea Nitrogen) 26 mg/dL (9.8-20.1); Calc. Creatinine Clearance 9 mL/min (70-130); Calcium 8.6 mg/dL (7.8-10.44); Carbon Dioxide 23 mmol/L (23-31); Chloride 99 mmol/L (98-107); Estimated GFR-MDRD 8; Glucose 108 mg/dL (83-110); Potassium 4.3 mmol/L (3.5-5.1); Sodium 135 mmol/L (136-145)
--- NOTE | 2018-10-15 07:44 | CON ---
DATE OF CONSULTATION: 10/14/2018 ADDENDUM: INDICATION FOR CONSULTATION: A 73-year-old female with history of coronary artery disease, status post bypass surgery, end-stage renal disease, on hemodialysis. She became dehydrated, had abnormal cardiac enzymes. Troponin I was 1.5 and increased up to 5.49 and back down to 5.16 with BNP of 3519 and MB of 3.6. Please refer to the notes dictated by my nurse practitioner, STONE Tolentino. We have discussed this patient. I would agree with her assessment and plan. HISTORY OF PRESENT ILLNESS: Ms. Augustine is a very unfortunate 73-year-old female who has end-stage renal disease and on hemodialysis. She had been on a recent cruise and try not to drink too much and became dehydrated. She then presented to the hospital not feeling well. She has been fatigued and also very weak. She also had a fall from her wheelchair, but otherwise had been doing relatively well and had dialysis last week on Friday and , and I believe she had dialysis again on Friday, but at this time came to the hospital due to her shortness of breath and also had elevation of the BNP as well as abnormal cardiac enzymes. Her potassium also was elevated at 5.1. She has a long history of hypertension and she actually had become somewhat lethargic and had some mental status changes. I believe this is the actual reason she presented to the emergency room. Doing dialysis yesterday, they tried to dialyze the patient. She became very hypotensive, but this is most likely due to the fact that she was already dehydrated volume on board. At this time, she is very comfortable. She is eating dinner and had dialysis earlier today and appears to be doing quite well otherwise. For her past medical history, social history, family history, past surgical history, allergies, medications, social history, family history, and review of systems, please refer to the notes dictated by the nurse practitioner. PHYSICAL EXAMINATION: GENERAL: Reveals an elderly, very fragile female who is in no acute distress at this time. VITAL SIGNS: Her blood pressure is 142/72. Her temperature is 99.9, respiratory rate is 16, heart rate is 72 and shows a sinus rhythm. HEENT: Head to be normocephalic and atraumatic. She has a well-healed surgical incision over the left carotid area after a carotid endarterectomy in the past. She also has a bruit over the right carotid area which radiates possibly from the aortic area. She does have some systolic murmur over the aortic area. She has no other significant abnormalities noted in the neck. She does have JVD above the level of the jaw. CHEST: She has bibasilar rales noted. CARDIOVASCULAR: She has a regular rhythm with a systolic murmur in the upper sternal border. ABDOMEN: Soft and nontender. Positive bowel sounds are present. EXTREMITIES: Showed some left lower extremity edema with erythema. Pedal pulses are not palpable. She has well-healed surgical incision after the saphenous vein graft retrieval. SKIN: Warm and dry at this time. MENTALLY: She appears to be intact. NEUROLOGIC: I do not find any gross focal motor deficits. LABORATORY DATA: Pertinent for the abnormal cardiac enzymes with BNP which was elevated at 3119 and her creatinine this morning was 7.88 prior to undergoing dialysis with a potassium of 5.1. Her WBC was 7.1 and hemoglobin 10.4. EKG shows sinus rhythm without any significant acute changes that I can elicit at this time. IMPRESSION: 1. End-stage renal disease, on hemodialysis for the patient who became dehydrated and then was not able to tolerate dialysis and also became somewhat confused, most likely due to the dehydration. At this time, she is mentally much better after dialysis and most likely had some fluids which have been given back to her. She is overall doing better and will be managed by Dr. Wiggins. 2. Abnormal cardiac enzymes. This is most likely due to the dehydration end-stage renal disease. She denies any chest pain. There were no significant EKG changes that would indicate ischemia. Would continue to monitor her. I would not advise cardiac catheterization or stress testing at this time in this elderly female. 3. Hypertension which is under very good control at this time. 4. History of, I believe, diastolic dysfunction. We will continue to monitor her very carefully. Her last echocardiogram showed ejection fraction of 50% to 55% with left ventricular hypertrophy and left atrial dilatation as well as elevated pulmonary artery pressures with elevated systolic pressure about 54 mmHg compatible at least moderate pulmonary hypertension. 5. Coronary artery disease. This appears to be stable. She underwent bypass surgery in 2000. 6. Peripheral vascular disease. She had a left carotid endarterectomy performed in the past. This also appears to be stable, was followed on a routine basis by Dr. España. We will be more than happy to continue to follow the patient with you, but from a cardiac standpoint, she appears to be stable at this time. Job ID: [id number]
[2018-10-15] MEDS ORDERED: Losartan 25 MG TAB PO SCH (09:00)
[2018-10-15] MEDS: Sevelamer Carbonate 800 MG TAB PO SCH (09:18)
[2018-10-15] MEDS: Aspirin 325 mg Enteric Coated Tablet PO SCH (09:18)
[2018-10-15] MEDS: Carvedilol 6.25 MG TAB PO SCH (09:18)
--- NOTE | 2018-10-15 09:42 | PRG ---
DATE OF SERVICE: 10/15/2018 RENAL MEDICINE SUBJECTIVE: Ms. Augustine is a 73-year-old female with ESRD, on maintenance hemodialysis. She was admitted for generalized malaise. She had an elevated troponin. Cardiology evaluated the patient, their feeling is that she did not have any acute AK. No other complaints. The patient is requesting to go home. She was complaining of left leg swelling and a Doppler and x-ray was done. They were all negative. No other complaints today. OBJECTIVE: VITAL SIGNS: Blood pressure is 135/68 with a heart rate of 75, respiratory rate 17, temperature 97.6 pulse ox 96%. GENERAL: Noted to be awake, comfortable. SKIN: Adequate turgor. HEENT: Pinkish conjunctivae. Anicteric sclerae. NECK: No neck mass. No carotid bruits. No JVD. CHEST: No deformities. LUNGS: Clear breath sounds. No wheezing. No crackles. HEART: Normal sinus rhythm. No murmurs, gallops, or rubs. ABDOMEN: Globular, soft, nontender. No masses. EXTREMITIES: No edema. No deformities. MEDICATIONS: Of 10/14/2018, medication reviewed. LABORATORY DATA: Laboratories of October 14, 2018; WBC 7.1, hemoglobin 10.4. On 10/15/2018, potassium 4.3, BUN 26, creatinine 5.15, sodium , chloride 99 and carbon dioxide 23. ASSESSMENT AND PLAN: 1. Increased lung markings/elevated BNP - received hemodialysis. removed. 2. End-stage renal disease, stable, continuing Friday, Friday, Friday hemodialysis regimen. 3. Elevated troponin I. Cardiology has evaluated the patient. The patient was told that she will be managed conservatively by her brick chimney builder. From a renal point of view, this patient can be discharged at any time. Job ID: [id number]
[2018-10-15] MEDS ORDERED: Vancomycin HCl 1 GM in Premix Bag 1 BAG IVPB SCH (11:00)
[2018-10-15 11:06] VITALS: TEMP 97.9
[2018-10-15 11:31] VITALS: BP 135/68
[2018-10-15] MEDS ORDERED: Piperacillin/Tazobactam 3.375 GM in Sodium Chloride 0.9% 100 ML IVPB SCH (12:00)
--- NOTE | 2018-10-15 12:54 | PDOC.CTH ---
Cardiology Progress Note - Subjective The pt seen and examined. No overnight events. No cardiac complaints. - Objective Vital Signs Temp Pulse Pulse Resp BP BP BP 10/15/18 11:00 97.9 F 61 17 152/69 H 10/15/18 09:18 135/68 10/15/18 08:29 97.6 F 75 17 135/68 10/15/18 08:23 68 135/68 10/15/18 04:00 98.2 F 93 18 124/60 Pulse Ox Pulse Ox 10/15/18 11:00 97 10/15/18 09:18 10/15/18 08:29 96 10/15/18 08:23 95 10/15/18 04:00 98 Weight 125 lb 12.8 oz 10/14/18 10/15/18 10/16/18 06:59 06:59 06:59 Intake Total 720 Output Total 1500 Balance -780 - Physical Examination General/Neuro: alert & oriented x3 Neck: no JVD present Lungs: CTA (diminished at bases) Heart: RRR Abdomen: soft Extremities: other: (No edema) - Telemetry Telemetry Rhythm: SR - Labs Result Diagrams: 10/14/18 04:47 10/15/18 05:45 Troponin/CKMB CK-MB (CK-2) 3.6 ng/mL (0-6.6) 10/13/18 08:25 Troponin I 5.161 ng/mL (< 0.028) H* 10/14/18 13:41 - Assessment/Plan 1. Elevated Trop prob. 2/2 severe dehydration - Denied any cardiac complaints; Not good candidate for [facility] for now 2. AMS - 2/2 severe dehydration - 3. HTN - stable 4. ESRD with HD on MWF - managed by Dr Wiggins 5. UTI - managed by ABX IV 6. Chronic diastolic HF - MAR reviewed * Echo on 10/14/2018 showed EF 45-50%, restrictive diastolic dysfunction, mod dilated LA, mild-mod AR, mod-severe tR, mild-mod KS, mod ERA, and mod elevated PRP. * From Cardiac standpoint, the pt is stable to d/c home. The pt will f/u with Dr Ronquillo's office within 2-4 wks. Review of Systems - Review of Systems Constitutional: reports: no symptoms reported EENTM: reports: no symptoms reported Respiratory: reports: no symptoms reported Cardiac (ROS): reports: no symptoms reported ABD/GI: reports: no symptoms reported : reports: no symptoms reported Musculoskeletal: reports: no symptoms reported Skin: reports: no symptoms reported
--- NOTE | 2018-10-15 17:34 | DIS ---
DATE OF ADMISSION: 10/13/2018 DATE OF DISCHARGE: 10/15/2018 PRIMARY CARE PHYSICIAN: Dr. Chica Early. CONDITION AT THE TIME OF DISCHARGE: Stable and improved. DISCHARGE DIAGNOSES: 1. Urinary tract infection. 2. Demand ischemia. 3. Dehydration. 4. Altered mental status secondary to urinary tract infection and dehydration. 5. Hypertension. 6. End-stage renal disease, on hemodialysis on Friday, Friday, Friday. 7. Left lower extremity cellulitis. 8. Chronic diastolic congestive heart failure. IN-HOUSE CONSULTATIONS: 1. Nephrology, Dr. Wiggins. 2. Cardiology, Dr. Arenas. DISCHARGE MEDICATIONS: 1. Vancomycin for 7 more doses with dialysis based on the levels. 2. Levofloxacin every 48 hours, 500 mg for 7 more doses. Resume home medications as follows: 1. Renvela 3 tablets p.o. t.i.d. 2. Catapres 0.1 mg p.r.n. 3. Amlodipine 10 mg daily. 4. Aspirin 81 mg daily. 5. Carvedilol 12.5 mg p.o. b.i.d. 6. Losartan 100 mg daily. DISCHARGE DISPOSITION: Home with [facility]. PROCEDURES DONE IN THE HOSPITAL: 1. CT scan of the brain upon presentation, which is unremarkable for any acute changes. 2. MRI of the brain which does not show any acute infarction. 3. Lower extremity ultrasound of the left leg, which is negative for any DVT. 4. X-ray of the tibia and fibula of the left leg, which is unremarkable. 5. Echocardiogram shows EF of 45% to 50% with restrictive filling pattern and moderate to severe tricuspid regurgitation. HISTORY OF PRESENTING ILLNESS: Ms. Augustine is a 73-year-old female with past medical history of end-stage renal disease, on hemodialysis, who was brought in by her family for complaints of lethargy and altered mental status. She has recently returned from a cruise and had limited oral intake and did not get dialysis for few days. She did get dialysis day after her return, but remained hypotensive and lethargic, so she was brought to the ER. In the emergency room, she was found to be dehydrated, hypotensive and likely having a urinary tract infection. Her cardiac enzymes also elevated. Please see admission history and physical for further details, but she was started on gentle IV fluids and empiric antibiotics. Cultures were sent. Aspirin was started in full-dose and Cardiology was consulted. The patient has chronic thrombocytopenia, so she did not receive any thrombolytics. Echo was ordered. HOSPITAL COURSE: The patient had significant improvement with little bit of IV fluids and IV antibiotics. For Escherichia coli, the sensitivities were pending at the time of discharge, but now they have come back and it is pansensitive. She was complaining of left lower extremity pain, swelling, and redness since her trip back, so lower extremity ultrasound and x-ray were done, which were both unremarkable. She was found to have a left lower extremity cellulitis and was started on empiric antibiotic with vancomycin with dialysis for 7 doses of levofloxacin for UTI and cellulitis for 7 doses on dialysis days. Cardiology saw the patient for her elevated troponin. Her cardiac enzyme trended upwards, the highest being 5.49 and then started to trend down. It was deemed demand ischemia due to severe dehydration. She had no signs or symptoms to suggest ACS. EKG was unremarkable. She was treated medically by aspirin and beta reyes and ARB. Dr. Arenas has cleared her for discharge this morning. As of this morning, the patient is back at her baseline. Dialysis was done in the hospital and she tolerated it very well. PHYSICAL EXAMINATION: VITAL SIGNS: This morning vital signs; temperature 97.9, pulse of 61, respirations 17, saturating 97% on 3 L nasal cannula, blood pressure 152/69. GENERAL: No acute distress. CHEST: Clear to auscultation bilaterally. HEART: Rhythm is regular. She is walking in the hallways with physical therapy and has been discharged from their program. Home health was arranged for group home for blood pressure monitoring and some of the medications were adjusted as above. Discharge plan was discussed with the patient and family and they verbalized understanding. Total time spent 36 minutes. Job ID: [id number]
[2018-10-15] MEDS ORDERED: Famotidine 20 MG TAB PO SCH (21:00)
== END 2018-10-15 14:38 | disposition home or self-care (01) | DRG 689 ==
LOC: ERS 07:25 → ERHOLD 11:28 → 2NO 23:49
PROVIDERS: ADMIT Internal Medicine; ATTEND Internal Medicine
PROC: 5A1D70Z Performance of Urinary Filtration, Intermittent, Less than 6 Hours Per Day (ICD-10-PCS; principal; 2018-10-14)
DX: N39.0 Urinary tract infection, site not specified (principal); N18.6 End stage renal disease; G93.41 Metabolic encephalopathy; I50.32 Chronic diastolic (congestive) heart failure; I13.0 Hypertensive heart and chronic kidney disease with heart failure and stage 1 through stage 4 chronic kidney disease, or unspecified chronic kidney disease; D61.818 Other pancytopenia; N25.81 Secondary hyperparathyroidism of renal origin; I24.8 Other forms of acute ischemic heart disease; L03.116 Cellulitis of left lower limb; I25.10 Atherosclerotic heart disease of native coronary artery without angina pectoris; E78.5 Hyperlipidemia, unspecified; K21.9 Gastro-esophageal reflux disease without esophagitis; D69.6 Thrombocytopenia, unspecified; E87.5 Hyperkalemia; D63.1 Anemia in chronic kidney disease; E80.7 Disorder of bilirubin metabolism, unspecified; E11.22 Type 2 diabetes mellitus with diabetic chronic kidney disease; E86.0 Dehydration; E11.51 Type 2 diabetes mellitus with diabetic peripheral angiopathy without gangrene; I95.9 Hypotension, unspecified; B96.20 Unspecified Escherichia coli [E. coli] as the cause of diseases classified elsewhere; Z98.49 Cataract extraction status, unspecified eye; Z99.2 Dependence on renal dialysis; Z95.1 Presence of aortocoronary bypass graft; Z90.49 Acquired absence of other specified parts of digestive tract; Z88.0 Allergy status to penicillin; Z88.5 Allergy status to narcotic agent; Z88.8 Allergy status to other drugs, medicaments and biological substances; Z91.041 Radiographic dye allergy status; Z79.82 Long term (current) use of aspirin; Z79.899 Other long term (current) drug therapy
CPT/HCPCS: 36415; 51701; 70450; 70551; 71045; 80048; 80053; 81003; 81015; 82553; 83690; 83735; 83880; 84100; 84484; 85025; 87040; 87077; 87086; 87186; 93005; 93306; 96361; 96365; A4353; J1956; J2543; J3370; J7050; S0028

== ENCOUNTER 2019-03-24 15:27 | Outpatient (CLI) | payer MEDICARE, OTHER ==
--- NOTE | 2019-03-24 16:06 | RAD ---
TWO VIEW CHEST: 03/24/19 COMPARISON: 10/13/18. CLINICAL HISTORY: Chronic systolic congestive heart failure. FINDINGS: There has been interval decrease of multifocal consolidation of the right lung, comparing to previous exam. There is enlargement of the cardiac silhouette and pulmonary vasculature with evidence of flui d overload to include interstitial edema. Mild pleural based density is seen at the inferior right ch est indicative of pleural fluid, mild in degree. IMPRESSION: Decompensated CHF. Recommend continued imaging follow-up. POS: [facility]
== END 2019-03-24 15:28 | disposition home or self-care (01) ==
LOC: RAD 15:27
PROVIDERS: ATTEND Internal Medicine Cardiovascular Disease
DX: I50.22 Chronic systolic (congestive) heart failure (principal)
CPT/HCPCS: 71046

== ENCOUNTER 2019-05-06 11:46 | Outpatient (CLI) | payer MEDICARE, OTHER ==
--- NOTE | 2019-05-06 12:35 | RAD ---
RIGHT HIP TWO VIEWS: History: Right hip pain, fall. FINDINGS/IMPRESSION: Mild degenerative changes are present. No acute fracture or dislocation is identified. POS: [facility]
== END 2019-05-06 11:47 | disposition home or self-care (01) ==
LOC: BICRAD 11:46
PROVIDERS: ATTEND Internal Medicine
DX: M25.551 Pain in right hip (principal); M16.11 Unilateral primary osteoarthritis, right hip

== ENCOUNTER 2019-07-30 11:13 | Emergency (ER) | payer MEDICARE, OTHER ==
[2019-07-30 12:35] LABS: #Lymphocytes 0.4 thou/uL (1.20-3.40); #Monocytes 0.4 thou/uL (0.11-0.59); #Neutrophils 3.8 thou/uL (1.40-6.50); %Eosinophils 0.2 % (0.0-10.0); %Lymphocytes 8.2 % (21.0-51.0); %Monocytes 9.2 % (0.0-10.0); %Neutrophils 82.4 % (42.0-75.0); Hemoglobin 10.8 g/dL (12.0-16.0); Mean Corpuscular HGB CONC 33.3 g/dL (32.0-36.0); Mean Corpuscular Hemoglobin 32.3 pg (27.0-31.0); Mean Corpuscular Volume 96.9 fL (78.0-98.0); Mean Platelet Volume 8.5 fL (7.4-10.4); Platelet Count 82 thou/uL (130-400); RBC Distribution Width 12.9 % (11.5-14.5); Red Blood Cell (RBC) Count 3.33 mill/uL (4.20-5.40); White Blood Cell (WBC) Count 4.6 thou/uL (4.8-10.8)
[2019-07-30 12:58] LABS: ALT (SGPT) Less than 7 U/L (8-55); AST (SGOT) 11 U/L (5-34); Albumin 3.6 g/dL (3.4-4.8); Alkaline Phosphatase 102 U/L (40-110); Anion Gap 12 mmol/L (10-20); BUN (Urea Nitrogen) 28 mg/dL (9.8-20.1); Bilirubin, Total 1.7 mg/dL (0.2-1.2); Calc. Creatinine Clearance 0 mL/min (70-130); Calcium 8.8 mg/dL (7.8-10.44); Carbon Dioxide 33 mmol/L (23-31); Chloride 96 mmol/L (98-107); Estimated GFR-MDRD 6; Globulin 3.4 g/dL (2.4-3.5); Glucose 105 mg/dL (83-110); Potassium 3.8 mmol/L (3.5-5.1); Sodium 137 mmol/L (136-145)
[2019-07-30] MEDS ORDERED: Acetaminophen 325 MG TAB ONE (14:26)
--- NOTE | 2019-07-30 14:28 | RAD ---
XR Chest Pa Lat STANDARD HISTORY: Fever and cough COMPARISON: None. FINDINGS: Heart size is enlarged with postop sternotomy changes. There are chronic appearing intersti tial lung changes in addition there is some increased parenchymal changes in the left midlung field that is slightly more prominent and would suggest possibly some minimal infiltrative change in this a eliseo. Pleural changes in the right base are similar to the previous exam. IMPRESSION: Cardiomegaly with mild vascular engorgement and increased interstitial markings which are probably chronic in nature but could indicate some element of edema. In addition there is slightly more confluent parenchymal change in left midlung field raising the possibility of some early infiltr ate.
[2019-07-30] MEDS ORDERED: Azithromycin 500 MG VIAL ONE (15:03)
[2019-07-30] MEDS ORDERED: cefTRIAXone\\ROCEPHIN 2 GM VIAL ONE (15:03)
[2019-07-30 15:41] LABS: Bilirubin Small (Negative); Blood, Urine Large (Negative); Glucose, Urine (Dipstick) Negative (Negative); Leukocyte Large (Negative); Nitrite Negative (Negative); Protein, Urine (Dipstick) > or equal to 300 mg/dL (Neg-Trace); Urobilinogen 0.2 mg/dL (Less than 2)
[2019-07-30 15:54] LABS: Clarity Turbid (Clear)
[2019-07-30 15:55] LABS: Bacteria/HPF 4+ HPF (None Seen); WBC/HPF Greater than 50 HPF (0-3)
== END 2019-07-30 17:25 | disposition home or self-care (01) ==
LOC: ERS 11:13
DX: J18.9 Pneumonia, unspecified organism (principal); I13.2 Hypertensive heart and chronic kidney disease with heart failure and with stage 5 chronic kidney disease, or end stage renal disease; N18.6 End stage renal disease; I50.9 Heart failure, unspecified; E78.5 Hyperlipidemia, unspecified; E78.00 Pure hypercholesterolemia, unspecified; K21.9 Gastro-esophageal reflux disease without esophagitis; I25.10 Atherosclerotic heart disease of native coronary artery without angina pectoris; Z99.2 Dependence on renal dialysis; Z79.899 Other long term (current) drug therapy
CPT/HCPCS: 36415; 51701; 71046; 80053; 81003; 81015; 83605; 85025; 87040; 87804; 96365; 96367; A4353; J0456; J0696

== ENCOUNTER 2019-10-15 16:04 | Observation (INO) | payer MEDICARE, OTHER ==
[2019-10-15 17:17] LABS: Mean Corpuscular HGB CONC 32.8 g/dL (32.0-36.0); Mean Corpuscular Hemoglobin 32.5 pg (27.0-31.0); Mean Corpuscular Volume 99.1 fL (78.0-98.0); Mean Platelet Volume 8.6 fL (7.4-10.4); Platelet Count 96 thou/uL (130-400); RBC Distribution Width 15.2 % (11.5-14.5); Red Blood Cell (RBC) Count 3.37 mill/uL (4.20-5.40); White Blood Cell (WBC) Count 3.7 thou/uL (4.8-10.8)
[2019-10-15 17:32] LABS: Anisocytosis SLIGHT = 6-15 cells (100X) (0-5/hpf); Band 9 % (5-11); Lymphocytes 6 % (21-51); MDiff Complete? YES; Monocytes 17 % (0-10); Neutrophil 66 % (42-75); Ovalocytes SLIGHT = 2-5 cells (100X) (0-1/hpf); Platelet Morphology Comment Appears Decreased; Polychromasia SLIGHT = 2-3 cells (100X) (0-2/hpf)
[2019-10-15 17:40] LABS: ALT (SGPT) Less than 7 U/L (8-55); AST (SGOT) 15 U/L (5-34); Albumin 3.7 g/dL (3.4-4.8); Alkaline Phosphatase 97 U/L (40-110); Anion Gap 13 mmol/L (10-20); BUN (Urea Nitrogen) 15 mg/dL (9.8-20.1); Bilirubin, Total 1.3 mg/dL (0.2-1.2); CK (CPK) 26 U/L (29-168); Calc. Creatinine Clearance 0 mL/min (70-130); Carbon Dioxide 32 mmol/L (23-31); Chloride 98 mmol/L (98-107); Estimated GFR-MDRD 14; Globulin 3.7 g/dL (2.4-3.5); Glucose 96 mg/dL (83-110); Potassium 3.3 mmol/L (3.5-5.1); Protein, Total 7.4 g/dL (6.0-8.3); Sodium 140 mmol/L (136-145)
[2019-10-15 18:02] LABS: CKMB 0.7 ng/mL (0-6.6)
--- NOTE | 2019-10-15 20:51 | RAD ---
EXAM: CHEST ONE VIEW HISTORY: Shortness of breath. Decreased oxygen saturation. COMPARISON: 07/30/2019 FINDINGS: Postsurgical changes related to CABG are again noted. The cardiac silhouette remains enlarged. Pulmon sakina vasculature is at the upper limits of normal. There are increased interstitial and patchy parenchymal changes at the right lung base which may be related to pneumonia. There is persistent alex nting of the right lateral costophrenic angle which may represent small right pleural effusion versus pleural and parenchymal scarring. Osteopenia is present. Vascular stent again overlies the med ial right arm. IMPRESSION: 1. Cardiomegaly with pulmonary vasculature at the upper limits of normal. 2. Interstitial and patchy densities right lung base which could be related to pneumonia. Follow-up t o resolution is recommended. 3. Small right pleural effusion versus pleural and parenchymal scarring.
[2019-10-15] MEDS ORDERED: Famotidine/PF 20 mg/2ml Vial ONE (22:35)
[2019-10-15] MEDS ORDERED: Cefepime 2 GM VIAL ONE (22:35)
[2019-10-15] MEDS ORDERED: methylPREDNISolone Sod Succ 40 MG VIAL ONE (22:35)
--- NOTE | 2019-10-15 23:23 | ULT ---
EXAM: Left lower extremity venous Doppler HISTORY: Left calf pain and swelling. Shortness of breath. FINDINGS: Grayscale, color-flow, Doppler evaluation, spectral analysis of the left lower extremity venous struc tures is performed with 2-D imaging. The left common femoral, superficial femoral, popliteal, posterior tibial, proximal greater saphenous and profunda femoral veins are imaged. There is normal luminal compressibility, flow, and augmentation in the visualized deep venous structu res of the left lower extremity. IMPRESSION: No evidence of a deep vein thrombosis in the visualized deep venous structures left lower extremity.
[2019-10-16 04:12] VITALS: BMI 19.9
[2019-10-16 06:28] LABS: Troponin I 0.047 ng/mL (< 0.028)
[2019-10-16] MEDS ORDERED: Acetaminophen 325 MG TAB PO PRN (07:59)
[2019-10-16] MEDS ORDERED: cloNIDine 0.1 MG TAB PO PRN (08:01)
[2019-10-16] MEDS ORDERED: Vancomycin HCl 1 GM in Premix Bag 1 BAG IVPB SCH (08:15)
[2019-10-16] MEDS ORDERED: Vancomycin HCl 250 MG in Sodium Chloride 0.9% 100 ML IVPB SCH (08:15)
[2019-10-16] MEDS ORDERED: Vancomycin Sliding Scale 1 EACH FS ONE (08:15)
[2019-10-16] MEDS ORDERED: Vancomycin HCl 750 MG in Sodium Chloride 0.9% 250 ML 250 ML IVPB SCH (08:15)
[2019-10-16] MEDS ORDERED: HOLD VANCOMYCIN FOR LEVEL >20 FS SCH (08:15)
[2019-10-16] MEDS ORDERED: Vancomycin HCl 500 MG in Sodium Chloride 0.9% 100 ML IVPB SCH (08:15)
[2019-10-16] MEDS: Aspirin 81 mg Enteric Coated Tablet PO SCH (08:40)
[2019-10-16] MEDS: Apixaban 2.5 MG TAB PO SCH ×2 (08:40→20:42)
[2019-10-16] MEDS: hydrALAZINE 25 MG TAB PO SCH ×3 (08:40→20:42)
[2019-10-16] MEDS: Sevelamer Carbonate 800 MG TAB PO SCH ×3 (08:41→20:42)
--- NOTE | 2019-10-16 08:59 | HP ---
CHIEF COMPLAINT: Shortness of breath and cough with chills. HISTORY OF PRESENT ILLNESS: The patient is a 74-year-old female, who is admitted to the hospital with new onset of dry cough, chills, and feeling cold and tired with lack of appetite, which all started yesterday. She was relatively well until yesterday. She is on oxygen on and off at home because of her congestive heart failure. She was brought to the emergency room for further evaluation and was found to have possible pneumonia and she is admitted to the hospital for further management and treatment and she denies any chest pain. She did not check her temperature, but she felt cold. PAST MEDICAL HISTORY: Positive for; 1. Mixed heart failure, systolic and diastolic. 2. End-stage renal disease, on hemodialysis 3 times a week. 3. Coronary artery disease, chronic, stable. 4. Hypertension, uncontrolled. 5. Dyslipidemia. 6. Gastroesophageal reflux disease. 7. Chronic hypoxemic respiratory failure, on home oxygen. 8. Paroxysmal atrial fibrillation, on anticoagulation. PAST SURGICAL HISTORY: 1. Coronary artery bypass graft x4 vessels. 2. Partial gastrectomy for polyposis. 3. Appendectomy. 4. Cholecystectomy. 5. Right upper extremity dialysis fistula. ALLERGIES: IODINATED CONTRAST, MINOXIDIL, MORPHINE, PENICILLIN, PHENERGAN, AND BENADRYL. FAMILY HISTORY: The patient's father of AAA at his early 80s. Mother had a massive NM. MEDICATIONS: 1. Renvela 800 mg 3 times a day. 2. Losartan 100 mg once a day. 3. Hydralazine 100 mg 3 times a day. 4. Aspirin 81 mg once a day. 5. Eliquis 2.5 mg twice a day. SOCIAL HISTORY: She does not use any alcohol, cigarettes, or illicit drugs. REVIEW OF SYSTEMS: A twelve-point system was reviewed and only those symptoms which are mentioned in HPI are positive, rest are negative. PHYSICAL EXAMINATION: VITAL SIGNS: Blood pressure is 187/85, temperature 98.3, pulse 70, respirations are 20, and O2 saturation is 98% on 2 L by nasal cannula. GENERAL: She looks tired. HEENT: Her head is atraumatic and normocephalic. Eyes, PERRLA. Sclerae are nonicteric. Conjunctivae are palish. Oral mucosa is slightly dry. NECK: Supple. LUNGS: Bilateral, but mostly at the right base crackles and rales. No wheezing. HEART: S1 and S2, normal. There is a systolic murmur 2/6 at the left sternal border mostly audible. ABDOMEN: Soft, nontender, and nondistended. She has scars on her abdomen and chest from previous surgeries, which are healed. EXTREMITIES: No clubbing, cyanosis, or edema. She has very diminished pulses on both tibialis posterior and dorsalis pedis arteries similar bilaterally on both feet. NEUROLOGIC: She is able to move her all 4 extremities. She is alert and oriented x4. There is no any motor deficits. LABORATORY DATA: Labs showed white count of 3.7, hemoglobin of 11.0, hematocrit 33.5, and platelet count 96,000. Sodium of 140, potassium 3.3, chloride 98, CO2 of 32, BUN 26, creatinine 5.15, total bilirubin 1.3. Creatine kinase 26, troponin 0.071, 0.080, and 0.047. BNP is 2847.1, globulin 3.7. An electrocardiogram showed normal sinus rhythm with left axis deviation and Q-waves in V1 and V2 suggestive of previous NM and ST and T-wave abnormalities with V5 and V6, mild T-wave inversions. Chest x-ray showed cardiomegaly and bilateral lower lobe infiltrates, mainly on the right side with small pleural effusion on the right side. IMPRESSION: 1. Acute onset of shortness of breath associated with feeling cold, chills and being tired and dry cough, which is suspicious for infectious etiology process in her lungs. Her chest x-ray showed possible pneumonia. She received cefepime and vancomycin in the emergency room. We are going to continue both antibiotics until we have more clear picture of what was going on, but I think there is significant component of congestive heart failure. 2. Mixed congestive heart failure with elevated BNP. 3. Hypokalemia. 4. End-stage renal disease, on hemodialysis 3 times a week. 5. Pancytopenia. We will do some flow cytometry on her blood and see whether this is not a myelodysplastic syndrome, but all three cell lines are low. 6. Coronary artery disease. 7. Gastroesophageal reflux disease. 8. Hyperlipidemia. 9. Uncontrolled hypertension. PLAN: Full admission. Condition is fair. Full code. Continue vancomycin and cefepime, DuoNeb q.6 hours. Continue home medications. Dr. Wiggins on consult for Nephrology. Potassium supplementation 20 mEq of KCl x1. She has elevated troponins, but those are in the range of indeterminate. She will receive hemodialysis as per Nephrology recommendation and she will get DVT prophylaxis with SCDs and she is on apixaban, which will be continued, so she will not need to have any additional heparin. Job ID: [id number]
[2019-10-16] MEDS ORDERED: Potassium Chloride 20 MEQ TAB PO SCH (09:15)
[2019-10-16] MEDS: Losartan 25 MG TAB PO SCH (20:42)
[2019-10-16] MEDS ORDERED: Cefepime 0.5 GM, Admixture Fee 1 EACH in Sodium Chloride 0.9% 100 ML IVPB SCH (23:00)
[2019-10-17 05:07] LABS: #Lymphocytes 0.3 thou/uL (1.20-3.40); #Monocytes 0.4 thou/uL (0.11-0.59); #Neutrophils 2.9 thou/uL (1.40-6.50); %Basophils 0.5 % (0.0-1.0); %Eosinophils 0.6 % (0.0-10.0); %Monocytes 11.2 % (0.0-10.0); %Neutrophils 78.8 % (42.0-75.0); Hemoglobin 10.2 g/dL (12.0-16.0); Mean Corpuscular HGB CONC 31.8 g/dL (32.0-36.0); Mean Corpuscular Hemoglobin 32.4 pg (27.0-31.0); Mean Platelet Volume 8.9 fL (7.4-10.4); Platelet Count 94 thou/uL (130-400); RBC Distribution Width 15.1 % (11.5-14.5); Red Blood Cell (RBC) Count 3.15 mill/uL (4.20-5.40); White Blood Cell (WBC) Count 3.7 thou/uL (4.8-10.8)
[2019-10-17 05:21] LABS: Anion Gap 15 mmol/L (10-20); BUN (Urea Nitrogen) 26 mg/dL (9.8-20.1); Calc. Creatinine Clearance 9 mL/min (70-130); Calcium 8.3 mg/dL (7.8-10.44); Carbon Dioxide 26 mmol/L (23-31); Chloride 99 mmol/L (98-107); Estimated GFR-MDRD 9; Glucose 180 mg/dL (83-110); Potassium 3.6 mmol/L (3.5-5.1); Sodium 136 mmol/L (136-145)
[2019-10-17] MEDS: hydrALAZINE 25 MG TAB PO SCH ×3 (08:47→20:03)
[2019-10-17] MEDS: Apixaban 2.5 MG TAB PO SCH ×2 (08:47→20:02)
[2019-10-17] MEDS: Aspirin 81 mg Enteric Coated Tablet PO SCH (08:47)
[2019-10-17] MEDS: Sevelamer Carbonate 800 MG TAB PO SCH ×4 (08:47→20:04)
--- NOTE | 2019-10-17 13:30 | PRG ---
DATE OF SERVICE: 10/17/2019 SUBJECTIVE: The patient was seen and examined at bedside. She is off her oxygen. She is feeling somewhat better. OBJECTIVE: VITAL SIGNS: Her pulse oximetry is 96% on room air, respiratory rate is 18, temperature is 98.2, pulse is 84, and blood pressure is 150/69. HEENT: Head is atraumatic and normocephalic. Eyes are PERRLA. Sclerae are nonicteric. Conjunctivae are palish. Oral mucosa is moist. NECK: Supple. LUNGS: Presenting with crackles at the right base. HEART: S1 and S2 normal. There is a systolic murmur at the left sternal border, 2/6. ABDOMEN: Soft, nontender, and nondistended. Bowel sounds are present. No organomegaly. EXTREMITIES: No clubbing, cyanosis, or edema. NEUROLOGICAL: She follows my commands. She moves all 4 extremities. There is no any motor deficits. LABORATORY DATA: Labs showed a white count of 3.7, hemoglobin of 10.2, hematocrit 32.1, and platelet count is 94,000. Normal electrolytes. BUN of 26, creatinine 4.6, and glucose 180. Troponin 0.071, 0.080, and 0.047. Procalcitonin 0.19. Microbiology, none. IMPRESSION: 1. Acute onset of shortness of breath, which is less likely pneumonia. At this point, we will do the chest x-ray. She received cefepime and vancomycin since the time of admission for possible pneumonia, but we do not have any blood cultures. She is off oxygen, saturating well after dialysis yesterday and this is most likely related to her congestive heart failure. 2. Mixed congestive heart failure with elevated BNP. 3. Hypokalemia, improved. 4. End-stage renal disease, on hemodialysis 3 times a week. 5. Pancytopenia of unclear etiology. At this point, flow cytometry is sent out. 6. Coronary artery disease. 7. Gastroesophageal reflux disease. 8. Hyperlipidemia. 9. Uncontrolled hypertension, improved. PLAN: I am going to stop antibiotics. Continue her hemodialysis. Do the chest x-ray. Continue her current regimen with aspirin, apixaban. We will stop her antibiotics as I mentioned above. Job ID: [id number]
--- NOTE | 2019-10-17 14:32 | RAD ---
PORTABLE CHEST: HISTORY: Shortness of breath. COMPARISON: 10/15/2019 FINDINGS: Cardiomegaly. Mild vascular engorgement. Patchy infiltrate and/or atelectasis in both lung bases agai n noted, not significantly changed from 10/15/2019. IMPRESSION: 1. Cardiomegaly with mild vascular congestion. 2. Bibasilar infiltrates and/or atelectasis or edema, not significantly changed. POS: [facility]
[2019-10-17] MEDS: Losartan 25 MG TAB PO SCH (20:03)
[2019-10-17] MEDS ORDERED: Senokot 8.6 MG TAB PO SCH (22:45)
[2019-10-18] MEDS ORDERED: Loratadine 10 MG TAB PO SCH ×2 (04:15→21:00)
[2019-10-18 04:55] LABS: #Eosinphils 0.1 thou/uL (0.0-0.7); #Lymphocytes 0.3 thou/uL (1.20-3.40); #Monocytes 0.4 thou/uL (0.11-0.59); #Neutrophils 3.4 thou/uL (1.40-6.50); %Eosinophils 1.7 % (0.0-10.0); %Lymphocytes 6.7 % (21.0-51.0); %Monocytes 10.2 % (0.0-10.0); %Neutrophils 81.5 % (42.0-75.0); Hemoglobin 10.9 g/dL (12.0-16.0); Mean Corpuscular HGB CONC 30.7 g/dL (32.0-36.0); Mean Corpuscular Hemoglobin 31.2 pg (27.0-31.0); Mean Platelet Volume 8.8 fL (7.4-10.4); Platelet Count 90 thou/uL (130-400); RBC Distribution Width 15.2 % (11.5-14.5); Red Blood Cell (RBC) Count 3.49 mill/uL (4.20-5.40); White Blood Cell (WBC) Count 4.2 thou/uL (4.8-10.8)
[2019-10-18 05:13] LABS: Anion Gap 18 mmol/L (10-20); BUN (Urea Nitrogen) 38 mg/dL (9.8-20.1); Calc. Creatinine Clearance 7 mL/min (70-130); Calcium 8.6 mg/dL (7.8-10.44); Carbon Dioxide 24 mmol/L (23-31); Chloride 97 mmol/L (98-107); Estimated GFR-MDRD 8; Glucose 110 mg/dL (83-110); Sodium 135 mmol/L (136-145)
[2019-10-18] MEDS ORDERED: EPOETIN ALFA-EPBX (ESRD) 4,000 UNIT/ML VIAL SC SCH (08:30)
[2019-10-18] MEDS ORDERED: Epoetin (ESRD) 20,000 UNITS/ML SC SCH (08:30)
--- NOTE | 2019-10-18 08:48 | CON ---
DATE OF CONSULTATION: SERVICE: Renal Medicine. HISTORY OF PRESENT ILLNESS: Ms. Augustine is a 74-year-old female with ESRD and admitted for dry cough as well as for possible CHF. She was hypoxemic yesterday after dialysis and fluid removal was done with some improvement. However, later that day, she still complains of mild shortness of breath. Chest x-ray showed just minimal increased lung markings. We are being consulted for management of her CHF/ESRD. Due to the mild shortness of breath, I have decided to do an extra hemodialysis for 2 hours with 2 L of fluid removal with her. REVIEW OF SYSTEMS: Positive for shortness of breath. Positive for a cough. No nausea. No vomiting. Appetite and energy level are fair. No diarrhea. No constipation. Occasional joint pains. No abdominal pain. No productive cough. No fever or chills. No headache. No sore throat. No gross hematuria. No dysuria. No urinary frequency. MEDICATIONS: The patient is currently on; 1. Apixaban 2.5 mg p.o. b.i.d. 2. Aspirin 81 mg q.a.m. 3. Cefepime 0.5 g IV daily. 4. Vitamin D 1000 international units daily. 5. Clonidine 0.1 mg b.i.d. 6. Hydralazine 25 mg p.o. t.i.d. 7. DuoNeb q.6. 8. Losartan 100 mg at bedtime. 9. KCl 20 mEq x1 dose. 10. Sevelamer 800 mg 3 tablets t.i.d. with meals. 11. Status post vancomycin. PAST MEDICAL HISTORY: 1. ESRD, currently on hemodialysis on Friday, Friday, and Friday. 2. Type 2 diabetes mellitus, controlled by diet. 3. Status post CHF. 4. History of neuropathy. 5. History of coronary artery disease. 6. Hypertension. 7. History of anxiety. PAST SURGICAL HISTORY: Status post PEG tube placement, subsequent removal; status post cardiac cath; status post CABG; status post AV fistula placement; status post appendectomy; status post cholecystectomy; status post cuffed dialysis catheter placement; and status post exploratory laparotomy. SOCIAL HISTORY: The patient has several children, lives with , lives in [place]. No history of smoking. No alcohol intake. Sedentary lifestyle. No IV drug abuse. Status post multiple blood transfusion. Education, high school. ALLERGIES: NONE. TRAUMA: None. IMMUNIZATIONS: Up-to-date. HOSPITALIZATIONS: Please see past medical history. FAMILY HISTORY: Positive family history of ESRD. PHYSICAL EXAMINATION: VITAL SIGNS: Blood pressure is noted to be at 150/70, heart rate 70. GENERAL: Noted to be awake, alert, comfortable, not in overt distress. SKIN: Adequate turgor. HEENT: Has pinkish conjunctivae. Anicteric sclerae. NECK: No neck mass. No carotid bruits. No JVD. CHEST: No deformities. LUNGS: Clear breath sounds. HEART: Normal sinus rhythm. No murmur. No gallops. No rubs. ABDOMEN: Globular, soft, and nontender. No masses. EXTREMITIES: No edema. LABORATORY DATA: Laboratories of October 15, 2019; white count 3.7, hemoglobin 11, and platelet count is 96,000. On October 15, 2019; sodium 140, potassium 3.3, chloride 98, carbon dioxide 32, BUN 15, creatinine 3.23, calcium 9.0, AST 15, and ALT less than 7. Troponin I 0.047. BNP is 2847. ASSESSMENT AND PLAN: 1. Congestive heart failure, extra hemodialysis today with 2 L fluid removal as tolerated. Please note, BNP is elevated and she has increased lung markings on chest x-ray. 2. Anemia. No indication for any Epogen treatment today. 3. Pancytopenia - on empiric IV antibiotics. Overall, agree with current management. ADDENDUM: Review of the last Kt/V suggests she is adequately dialyzed with the current dialysis regimen. Mild hypokalemia. We will adjust her potassium bath with dialysis. Job ID: [id number]
--- NOTE | 2019-10-18 08:58 | PRG ---
DATE OF SERVICE: 10/18/2019 SUBJECTIVE: Ms. Augustine is a 74-year-old female with ESRD, who was admitted for shortness of breath. She also was complaining of cough with chills. She is currently undergoing hemodialysis. We are removing fluid as tolerated. The x-ray showed possible pneumonia, although a cardiac etiology is a possibility. We are trying to max out fluid removal. No other complaints with this patient. OBJECTIVE: VITAL SIGNS: Blood pressure is 160/70, heart rate 67, respiratory rate 18, temperature 97.8, pulse ox 95%. GENERAL: Awake, alert, and comfortable, not in distress. SKIN: Adequate turgor. HEENT: Pinkish conjunctivae. Anicteric sclerae. NECK: No neck mass. No carotid bruits. No JVD. LUNGS: Decreased breath sounds. HEART: Normal sinus rhythm. No murmur. No gallops. No rubs. ABDOMEN: Globular, soft, and nontender. No masses. EXTREMITIES: No edema. No deformities. MEDICATIONS: Medications of October 18, 2019, were reviewed. LABORATORY DATA: Laboratories of October 18, 2019: White count 4.2, hemoglobin 10.9. Sodium 135, potassium 4, chloride 97, carbon dioxide 24, BUN 38, creatinine 5.51, glucose 110, calcium 8.6. ASSESSMENT AND PLAN: 1. End-stage renal disease, stable. We will continue current hemodialysis regimen on Friday, Friday, and Friday. Fluid removal as tolerated. 2. Shortness of breath, multifactorial etiology - congestive heart failure with a possible pneumonia. Currently, on IV antibiotics. 3. Anemia. We will start Epogen 7500 units subcutaneously q.week. Overall, agree with current management. Job ID: [id number]
[2019-10-18] MEDS: Aspirin 81 mg Enteric Coated Tablet PO SCH (11:26)
[2019-10-18] MEDS: hydrALAZINE 25 MG TAB PO SCH ×2 (11:26→16:18)
[2019-10-18] MEDS: Sevelamer Carbonate 800 MG TAB PO SCH ×2 (11:27→16:18)
[2019-10-18] MEDS: Apixaban 2.5 MG TAB PO SCH (11:27)
[2019-10-18 15:27] VITALS: BP 144/69; TEMP 98.4
--- NOTE | 2019-10-18 15:49 | DIS ---
DATE OF ADMISSION: 10/16/2019 DATE OF DISCHARGE: 10/18/2019 PRIMARY CARE PHYSICIAN: Chica Early MD DISCHARGE DISPOSITION: Discharged home. FINAL DIAGNOSES: 1. Acute on chronic systolic heart failure. 2. End-stage renal disease, requiring hemodialysis. 3. Pancytopenia. 4. Cardiomyopathy. 5. Acute respiratory failure, requiring O2. DISCHARGE MEDICATIONS: 1. Hydralazine 25 mg 3 times a day. 2. Losartan 100 mg at bedtime. 3. Clonidine p.r.n. 0.1 mg. 4. Eliquis 2.5 mg twice a day. 5. Aspirin 81 mg a day. 6. Renvela 2400 mg 3 times a day. ALLERGIES: MORPHINE, PROMETHAZINE, MINOXIDIL, DIPHENHYDRAMINE. DIET: High-protein, renal. CODE STATUS: Full resuscitation. PENDING AT THE TIME OF DISCHARGE: Nothing. HOSPITAL [facility]RSE: [facility] with shortness of breath, initially thought to possibly have pneumonia, volume overload, etc. The patient's initial chest x-ray showed what looks like pulmonary vascular congestion. Her initial sodium was 140, potassium 3.3, creatinine 3.23, total bilirubin 1.3, and transaminases normal. She had chronically elevated troponins of 0.07, 0.08, and 0.05. BNP was elevated at 2847. Hemoglobin ranged from 11 to 10.2, white cell count ranged from 3.7 to 4.2, platelet count ranged from 90,000 to 96,000. The patient originally started on antibiotics. Cultures were negative. Chest cleared with hemodialysis. She was last dialyzed today. She is doing well. Consultations, Dr. Romero Wiggins, her sap administrator. The patient is being discharged to continue outpatient hemodialysis Friday. She is on her home medicines. She has a mild pancytopenia, which was on each of three CBCs, it might be reasonable to refer her to a ballpoint pen assembly machine operator/oncologist as an outpatient. Job ID: [id number]
[2019-10-18] MEDS ORDERED: Senokot 8.6 MG TAB PO SCH (21:00)
== END 2019-10-18 16:50 | disposition home or self-care (01) ==
LOC: ERS 16:04 → 2SW 10-16 04:02
PROVIDERS: ADMIT Family Medicine; ATTEND Family Medicine
DX: I13.2 Hypertensive heart and chronic kidney disease with heart failure and with stage 5 chronic kidney disease, or end stage renal disease (principal); E11.22 Type 2 diabetes mellitus with diabetic chronic kidney disease; N18.6 End stage renal disease; I50.43 Acute on chronic combined systolic (congestive) and diastolic (congestive) heart failure; D63.1 Anemia in chronic kidney disease; D61.818 Other pancytopenia; I42.9 Cardiomyopathy, unspecified; J96.21 Acute and chronic respiratory failure with hypoxia; I25.10 Atherosclerotic heart disease of native coronary artery without angina pectoris; E78.5 Hyperlipidemia, unspecified; K21.9 Gastro-esophageal reflux disease without esophagitis; I48.0 Paroxysmal atrial fibrillation; E87.6 Hypokalemia; E11.40 Type 2 diabetes mellitus with diabetic neuropathy, unspecified; F41.9 Anxiety disorder, unspecified; Z79.01 Long term (current) use of anticoagulants; Z79.82 Long term (current) use of aspirin; Z79.899 Other long term (current) drug therapy; Z88.5 Allergy status to narcotic agent; Z88.8 Allergy status to other drugs, medicaments and biological substances; Z95.1 Presence of aortocoronary bypass graft; Z90.3 Acquired absence of stomach [part of]; Z99.2 Dependence on renal dialysis; Z99.81 Dependence on supplemental oxygen
CPT/HCPCS: 71045 ×2; 80048 ×2; 80053; 82550; 82553; 83880; 84145; 84484 ×3; 85025 ×3; 88184; 93005; 93971; 94640 ×3; 96365; 96367; 96375; 99285; Q5105; 36415; 90935; 96366; 96372; G0257; G0378; J0692; J2920; J3370; J3490; J7620; S0028

== ENCOUNTER 2019-11-11 10:42 | Inpatient (IN) | payer MEDICARE, OTHER ==
[2019-11-11 12:01] LABS: Hemoglobin 8.1 g/dL (12.0-16.0); Mean Corpuscular HGB CONC 33.7 g/dL (32.0-36.0); Mean Corpuscular Hemoglobin 34.1 pg (27.0-31.0); Mean Platelet Volume 8.6 fL (7.4-10.4); Platelet Count 96 thou/uL (130-400); RBC Distribution Width 14.8 % (11.5-14.5); Red Blood Cell (RBC) Count 2.36 mill/uL (4.20-5.40); White Blood Cell (WBC) Count 1.6 thou/uL (4.8-10.8)
[2019-11-11 12:04] LABS: INR-International Normal Ratio 1.4; PTT 36.2 SEC (22.9-36.1)
[2019-11-11 12:21] LABS: Band 5 % (5-11); Lymphocytes 29 % (21-51); MDiff Complete? YES; Monocytes 15 % (0-10); Neutrophil 51 % (42-75); Platelet Morphology Comment Appears Decreased; Polychromasia SLIGHT = 2-3 cells (100X) (0-2/hpf)
[2019-11-11 12:25] LABS: ALT (SGPT) Less than 7 U/L (8-55); AST (SGOT) 14 U/L (5-34); Albumin 3.2 g/dL (3.4-4.8); Alkaline Phosphatase 77 U/L (40-110); Anion Gap 17 mmol/L (10-20); BUN (Urea Nitrogen) 42 mg/dL (9.8-20.1); Bilirubin, Total 1.1 mg/dL (0.2-1.2); Calc. Creatinine Clearance 0 mL/min (70-130); Calcium 8.4 mg/dL (7.8-10.44); Carbon Dioxide 28 mmol/L (23-31); Chloride 98 mmol/L (98-107); Estimated GFR-MDRD 10; Globulin 3.2 g/dL (2.4-3.5); Glucose 91 mg/dL (83-110); Iron 61 ug/dL (50-170); Iron Binding Capacity, Total 200 mcg/dL (265-497); Protein, Total 6.4 g/dL (6.0-8.3); Sodium 139 mmol/L (136-145)
[2019-11-11] MEDS ORDERED: Pantoprazole 40 MG VIAL ONE (12:30)
[2019-11-11] MEDS ORDERED: Pantoprazole 80 MG in Sodium Chloride 0.9% 100 ML IVP SCH (12:45)
[2019-11-11] MEDS ORDERED: Ondansetron PF 4 MG/2 ML Vial IVP PRN (15:45)
[2019-11-11] MEDS ORDERED: Calcium Carbonate 500 MG ChewTAB PO PRN (15:45)
[2019-11-11] MEDS ORDERED: Ondansetron ODT 4 MG TAB PO PRN (15:45)
[2019-11-11] MEDS ORDERED: Acetaminophen 325 MG TAB PO PRN (15:45)
[2019-11-11] MEDS ORDERED: Senokot S 8.6-50 MG TAB PO PRN (15:45)
[2019-11-11] MEDS ORDERED: cloNIDine 0.1 MG TAB PO PRN ×2 (15:45→18:34)
[2019-11-11 15:46] VITALS: BMI 19.7
[2019-11-11 17:18] LABS: Hemoglobin 8.2 g/dL (12.0-16.0)
[2019-11-11] MEDS ORDERED: Losartan 25 MG TAB PO SCH (21:00)
[2019-11-11] MEDS ORDERED: hydrALAZINE 25 MG TAB PO SCH (21:00)
[2019-11-11] MEDS: Losartan 25 MG TAB PO SCH (21:31)
[2019-11-11] MEDS: hydrALAZINE 25 MG TAB PO SCH (21:31)
[2019-11-11] MEDS ORDERED: Preparation H Suppository PR PRN (22:10)
[2019-11-12 05:45] LABS: ALT (SGPT) Less than 7 U/L (8-55); AST (SGOT) 12 U/L (5-34); Albumin 2.7 g/dL (3.4-4.8); Alkaline Phosphatase 64 U/L (40-110); Anion Gap 16 mmol/L (10-20); BUN (Urea Nitrogen) 51 mg/dL (9.8-20.1); Calc. Creatinine Clearance 8 mL/min (70-130); Calcium 7.9 mg/dL (7.8-10.44); Carbon Dioxide 25 mmol/L (23-31); Chloride 99 mmol/L (98-107); Eosinophils 2 % (0-10); Estimated GFR-MDRD 8; Globulin 2.8 g/dL (2.4-3.5); Glucose 94 mg/dL (83-110); Hemoglobin 6.9 g/dL (12.0-16.0); Lymphocytes 30 % (21-51); MDiff Complete? YES; Mean Corpuscular HGB CONC 33.5 g/dL (32.0-36.0); Mean Platelet Volume 8.9 fL (7.4-10.4); Monocytes 11 % (0-10); Neutrophil 54 % (42-75); Platelet Count 90 thou/uL (130-400); Platelet Morphology Comment Appears Decreased; Potassium 4.4 mmol/L (3.5-5.1); Protein, Total 5.5 g/dL (6.0-8.3); RBC Distribution Width 14.5 % (11.5-14.5); Red Blood Cell (RBC) Count 2.03 mill/uL (4.20-5.40); Sodium 136 mmol/L (136-145); White Blood Cell (WBC) Count 1.7 thou/uL (4.8-10.8)
[2019-11-12] MEDS ORDERED: Epoetin (ESRD) 20,000 UNITS/ML SC SCH (09:15)
--- NOTE | 2019-11-12 09:22 | HP ---
DATE SEEN: The patient was seen and examined on November 11, 2019. CHIEF COMPLAINT: GI bleeding. HISTORY OF PRESENT ILLNESS: The patient is a 74-year-old female with paroxysmal atrial fibrillation (on Eliquis), end-stage renal disease (on hemodialysis), and cardiomyopathy, presented to the emergency room with above complaints. Over the last 24 hours, the patient has been feeling generally weak and fatigued. She had 3 episodes of dark maroon/blackish colored stool. She also felt nauseous along with some lightheadedness. She has been feeling generally weak. There was some abdominal cramping as well that has somewhat improved. No chest pain, palpitations, lightheadedness, dizziness reported. She denies recent GI workup. She has a history of partial gastrectomy for polyposis. She is also on aspirin 81 mg daily. She also reports that over the last 2 weeks, the patient has on and off dark stool. PAST MEDICAL HISTORY: 1. Chronic systolic/diastolic heart failure. 2. End-stage renal disease, on hemodialysis. 3. Coronary artery disease. 4. Hypertension. 5. Dyslipidemia. 6. GERD. 7. Chronic hypoxic respiratory failure, on home oxygen. 8. Paroxysmal atrial fibrillation, on Eliquis. PAST SURGICAL HISTORY: 1. Dialysis access. 2. Cholecystectomy. 3. Appendectomy. 4. Partial gastrectomy. 5. CABG. ALLERGIES: THE PATIENT IS ALLERGIC TO IODINE, MINOXIDIL, MORPHINE, PENICILLIN, PHENERGAN, AND BENADRYL. CURRENT HOME MEDICATIONS: 1. Clonidine as needed. 2. Eliquis 2.5 mg b.i.d. 3. Aspirin 81 mg daily. 4. Calcitriol 0.25 mcg daily. 5. Vitamin D3 of 50 mcg daily. 6. Hydralazine 25 mg 3 times a day. 7. Hydroxyzine 25 mg b.i.d. 8. Losartan 100 mg at bedtime. 9. Renvela 2400 mg 3 times a day. SOCIAL HISTORY: The patient currently lives at home with her family. No smoking, alcohol, or drug use. She makes her own decision with the help of her . She is full code. FAMILY HISTORY: Negative for premature coronary artery disease. REVIEW OF SYSTEMS: All other review of systems was reviewed and was found negative. PHYSICAL EXAMINATION: VITAL SIGNS: In the emergency room showed temperature 98.6, respirations of 16, pulse of 66, blood pressure of 183/61 with O2 saturation 94% on room air. GENERAL: A 74-year-old female, in no apparent distress. Abdominal cramping has improved. HEENT: Head, atraumatic and normocephalic. Conjunctiva pale. No oral lesion. NECK: Supple. No JVD. No carotid bruit. LUNGS: Clear to auscultation bilaterally. No wheezing, rales, or rhonchi. HEART: S1 and S2 present. Regular rate and rhythm. 2/6 systolic murmur over the mitral area. ABDOMEN: Soft, nontender. Bowel sounds present. No rebound or guarding. No costovertebral angle tenderness. Rectal examination done in the emergency room was positive. EXTREMITIES: No edema or calf tenderness. NEUROLOGY: Grossly nonfocal. Moves all 4 extremities. PSYCHIATRY: Alert, awake, oriented x3. LABORATORY FINDINGS: CBC showed WBC 1.6 with hemoglobin 8.1, hematocrit 23.9, platelet of 96. Her hemoglobin last month was 10.9. PT 17, INR 1.4, PTT 36.2. Creatinine 4.29 with BUN 42. Iron profile showed iron of 61, TIBC 200, ferritin of 1346. LFTs in normal range. Stool for occult blood was positive. Telemetry monitoring by my review showed sinus rhythm. IMPRESSION: 1. GI bleeding suspected secondary to peptic ulcer disease. 2. Paroxysmal atrial fibrillation, on chronic anticoagulation. 3. Acute blood loss anemia. 4. Generalized weakness secondary to GI bleeding. 5. Chronic systolic and diastolic heart failure, appears to be compensated. Last echocardiogram approximately a month ago showed ejection fraction of 45% to 50%. 6. Coronary artery disease, on low-dose aspirin. 7. Chronic pancytopenia. 8. Gastroesophageal reflux disease. 9. History of partial gastrectomy. 10. Hypertension. 11. Hyperlipidemia. 12. End-stage renal disease, on hemodialysis. PLAN: The patient will be monitored on the medical floor. We will monitor H and H closely. We will transfuse to keep H and H over 7. We will resume hydralazine and losartan. The patient is not on beta blockers at home probably due to bradycardia. Cardiology, Gastroenterology, and Nephrology will be consulted. We will check orthostatic vitals in a.m. Q.4 hours vital signs. The patient and the family understand the above plan of care. Job ID: [id number]
--- NOTE | 2019-11-12 09:29 | PRG ---
DATE OF SERVICE: 11/12/2019 SUBJECTIVE: Ms. Augustine is a 74-year-old female with ESRD and admitted for possible GI bleed. Please note her Eliquis has been discontinued. Cardiology and GI consult have been done. She is undergoing hemodialysis today. We are using no heparin. Due to her progressive anemia, she is transfusing at least 1-2 units of packed RBC with dialysis. No new complaints today except being tired. OBJECTIVE: VITAL SIGNS: Blood pressure is 157/63, heart rate 54, respiratory rate 16, temperature 98.4, and pulse ox 98%. GENERAL: Awake, lethargic, not in distress. SKIN: Adequate turgor. HEENT: Pale conjunctivae, anicteric sclerae. NECK: No neck mass. No carotid bruits. No JVD. CHEST: No deformities. LUNGS: Clear breath sounds. No wheezing. No crackles. HEART: Normal sinus rhythm. No murmur. No gallops. No rubs. ABDOMEN: Globular. Soft. Nontender. No masses. EXTREMITIES: No edema. No deformities. MEDICATIONS: Medications of November 12, 2019, reviewed. LABORATORY DATA: Laboratories of November 12, 2019; white count 1.7, hemoglobin 6.9. Sodium 136, potassium 4.4, chloride 99, carbon dioxide 25, BUN 51, creatinine 5.09, AST is 12, ALT less than 7 Albumin 2.7. ASSESSMENT AND PLAN: 1. End-stage renal disease, stable. We will continue heparin free hemodialysis in view of a possible GI bleed. Fluid removal only as tolerated. Attempting around 2.4 L of fluid removal. 2. Anemia. P.r.n. blood transfusion. Refer to GI for possible GI bleed. 3. We will also initiate Epogen 7500 units subcu every week. 4. Overall prognosis remains guarded. Job ID: [id number]
[2019-11-12] MEDS ORDERED: EPOETIN ALFA-EPBX (ESRD) 4,000 UNIT/ML VIAL SC SCH (12:00)
[2019-11-12] MEDS: Calcitriol 0.25 MCG CAP PO SCH (12:58)
[2019-11-12] MEDS: Folic Acid 1 MG TAB PO SCH (12:58)
[2019-11-12] MEDS: Losartan 25 MG TAB PO SCH ×2 (12:58→20:01)
[2019-11-12] MEDS: Cyanocobalamin (Vitamin B-12) 1,000 MCG TAB PO SCH (12:58)
[2019-11-12] MEDS: hydrALAZINE 25 MG TAB PO SCH ×3 (12:58→20:01)
--- NOTE | 2019-11-12 16:29 | CON ---
DATE OF CONSULTATION: REASON FOR CONSULTATION: GI bleed and paroxysmal atrial fibrillation. HISTORY OF PRESENT ILLNESS: Ms. Augustine is a pleasant 74-year-old woman with end-stage renal disease, on dialysis, also history of coronary artery disease with previous bypass surgery, admitted with GI bleeding. The patient from a cardiac standpoint has a history of labile hypertension. The patient sometimes gets hypotensive during dialysis or after dialysis. It has been difficult to adequately control her medicines to control her blood pressure, it is extremely labile. The patient in the last fall was found to have paroxysmal atrial fibrillation on a monitor. She was started on reduced dose Eliquis. The patient did well, but recently started having black tarry stools and finally came to the emergency room with severe anemia. She has received 2 units of packed red blood cells, feeling better. PAST MEDICAL HISTORY: She has a history of coronary artery bypass grafting, catheterization later revealed patent internal mammary to the LAD, patent radial to the right coronary, occluded vein graft to obtuse marginal, calcified vessel. Medical therapy being the only option. That catheterization was done in 2011. Echocardiogram done in 09/2018 revealed ejection fraction of 45% to 50%. MEDICATIONS: 1. Aspirin. 2. Eliquis 2.5 mg twice a day. 3. Hydralazine 25 mg 3 times a day. 4. Calcitriol. 5. Hydroxyzine. 6. Losartan 100 mg a day. REVIEW OF SYSTEMS: CONSTITUTIONAL: Positive for weakness and fatigue. VISION: No changes. HEARING: No changes. PULMONARY: No cough or wheezing. GASTROINTESTINAL: Positive for black tarry stools. CARDIAC: No chest pain. SKIN: No rashes. NEUROLOGIC: No unilateral weakness or numbness. PSYCHIATRIC: No unusual depression or anxiety. PHYSICAL EXAMINATION: GENERAL: This is a very pleasant, thin, chronically ill-appearing woman, in no distress. VITAL SIGNS: Blood pressure is 190/50, pulse is 60. LUNGS: Clear. CARDIAC: Normal S1 and normal S2. I do not hear a murmur, rub, or gallop. ABDOMEN: Soft and nontender. EXTREMITIES: No edema. ASSESSMENT: 1. Gastrointestinal bleed, probably precipitated by Eliquis. 2. Paroxysmal atrial fibrillation. 3. Coronary artery disease. 4. Labile blood pressure. 5. End-stage renal disease, on hemodialysis. PLAN: Stop Eliquis. The last dose was yesterday morning. Dr. Mccain is consulted to consider upper and lower endoscopy. The patient has received 2 units of packed red blood cells. Job ID: [id number]
[2019-11-12] MEDS ORDERED: GoLYTELY 4,000 ml Bottle PO SCH (16:30)
--- NOTE | 2019-11-12 18:12 | CON ---
DATE OF CONSULTATION: 11/12/2019 REASON FOR CONSULT: Iron deficiency anemia and GI bleed. HISTORY OF PRESENT ILLNESS: Ms. Augustine is a 74-year-old, whom I have asked to see regarding possible endoscopy for anemia, which has been worsening recently and possible GI bleeding. She was recently here at this hospital from the October 15, 2019 through October 18, 2019 for heart failure exacerbation, pancytopenia, respiratory failure requiring oxygen. She has a history of cardiomyopathy, pancytopenia, and end-stage renal disease. She also has atrial fibrillation and is on blood thinner. From her last hospitalization, she had a hemoglobin of 10.9. She reports that when she came back in, she got worsening shortness of breath. Over the past 2 weeks, she has had some very dark stools that were black and tarry and even had somewhat kind of maroon. She became more short of breath the night before admission using home oxygen, became even more short of breath on dialysis. She was found to have a hemoglobin of 8 and with her history of intermittent dark stools, she had a Hemoccult done which was positive. At times, she has been feeling weak on dialysis, but she has had no abdominal pain on dialysis. No cramping. Presently, she has been seen by her pocket cutter, Dr. Ronquillo today. It was in September of 2018, her EF was 45% to 50%. Presently, she denies any abdominal pain or nausea. She does not really get around much. It is hard to tell if she has any dyspnea on exertion. She has been off her Eliquis now since admission. PAST MEDICAL HISTORY: 1. Coronary artery bypass grafting on medical therapy. Now, she has had occlusion of some of her grafts. Last catheterization in 2011. 2. Echocardiogram in 09/2018 with EF of 45% to 50%. 3. Labile hypertension. 4. End-stage renal disease on dialysis. 5. 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 I have seen her for recurrent anemia, which she is having hemoglobins as low as 4 or 5 that was more than 10 years ago. 6. History of rectal polyp, large and removed by transanal excision that was more than 10 years ago. She has had dyslipidemia, reflux, chronic hypoxic respiratory failure on home O2, and paroxysmal atrial fibrillation. PAST SURGICAL HISTORY: Dialysis access, cholecystectomy, appendectomy, partial gastrectomy, rectal polyp removal, and CABG. ALLERGIES: IODINE, MINOXIDIL, MORPHINE, PENICILLIN, PHENERGAN, AND BENADRYL. MEDICATIONS: At home: 1. Eliquis 2.5 mg b.i.d. 2. Clonidine. 3. Aspirin 81. 4. Calcitriol. 5. Vitamin. 6. Hydralazine. 7. Losartan. 8. Hydroxyzine. 9. Renvela. 10. She also takes Prilosec at home. SOCIAL HISTORY: She lives at home with family members. Daughter and at bedside. Does not smoke, drink, or use drugs. FAMILY HISTORY: Negative for colorectal cancer or liver disease. REVIEW OF SYSTEMS: Negative for odynophagia or dysphagia. Negative for nausea or hematemesis. Negative for shortness of breath presently. PRESENT MEDICATIONS: Here: 1. Tylenol. 2. Rocaltrol. 3. Tums. 4. Catapres. 5. Vitamin B12. 6. Epogen. 7. Folic acid. 8. Cozaar. 9. Zofran. 10. Protonix drip. 11. Senokot p.r.n. PHYSICAL EXAMINATION: VITAL SIGNS: Blood pressure 180/61, pulse 71, O2 saturation 99% to 100% on 2 L nasal cannula, respiratory rate 14, and temperature 97.4. GENERAL: She is a frail woman at 74. She is resting in bed. She is very pleasant. She is alert and oriented to person, place, and time. and daughter at the bedside. She does note that she has not currently in distress. She understands her medical condition while asked very appropriate questions. HEENT: Her conjunctivae and sclerae are clear. Oropharynx, no lesions. NECK: Supple. No adenopathy. LUNGS: Clear. HEART: Regular rate and rhythm without murmurs. ABDOMEN: Soft and nontender. There is a well-healed midline scar as well as a midline chest scar right above the umbilicus. There is a hard area initially thought this was a hernia. It is nontender. It seems to be scar tissue. There is no evidence of hernias. Otherwise, the bowel sounds are present. There is no palpable hepatosplenomegaly. EXTREMITIES: No clubbing, cyanosis, or edema. LABORATORY DATA: White count at baseline was 3.7, more recently was 1.6, on the 20th 1.7, on hemoglobin was 8.1 on the and on repeat testing was 8.2, this morning was 6.9. She subsequently got 2 units of blood. Platelet count is 90,000 and MCV is 102. INR is 1.4 on the . On admission; sodium 139, potassium 4, BUN and creatinine 42 and 4.29. Liver function tests normal. Iron 77, TIBC 20, and ferritin 1346. Last B12 was less than 100 in 11/2015 and has not been rechecked. She does take B12 daily. ASSESSMENT: 1. Anemia. This is likely multifactorial. Some of this may be related to her renal failure. She is on Epogen. 2. It does seem that she has had an acute gastrointestinal bleed with her description of melena and bright red blood per rectum. She is on blood thinners. This may be from no lesions whatsoever anastomotic erosions from previous gastric surgery or rectal surgery. New neoplastic lesions or other processes. 3. She has a macrocytic anemia. She is on oral B12. I suspect in her dialysis center, she has had her B12 checked recently, but in the [facility], the last check was 4 years ago, have to recheck that today. PLAN: 1. Recheck B12. 2. Liquid diet. 3. As her heart function has been felt to be stable, it is going to be and she has been optimized in dialysis and transfusion today there has been concern for GI bleed and subsequent drop in hemoglobin and heme-positive stools. We will plan for upper and lower endoscopy tomorrow depending on the results of the B12, she may need a change to parental. 4. Depending on the results of her B12, she may need a change to parental replacement. 5. If there is any change or decompensation of respiratory or cardiopulmonary status overnight, we may have to reassess her risks and the feasibility of proceeding with endoscopy and she does not seem to have an acute gastrointestinal bleed at this time. Job ID: [id number]
--- NOTE | 2019-11-12 23:16 | PDOC.HOSPP ---
- Subjective Encounter Date: 11/12/19 Encounter Time: 09:00 Subjective: Patient seen and examined for GI bleeding. No new GI bleeding. Received 2 units with dialysis. No new complaints. No overnight events - Objective Vital Signs & Weight: Vital Signs (12 hours) Temp Pulse Resp BP BP BP Pulse Ox 11/12/19 20:01 71 173/55 H 11/12/19 19:45 99 F 63 12 190/67 H 99 11/12/19 15:18 97.4 F L 71 14 192/61 H 91 L 11/12/19 12:40 98.4 F 60 16 190/50 H 100 11/12/19 12:00 99 Weight Weight 111 lb 5.335 oz Most Recent Monitor Data Heart Rate from ECG 54 NIBP 158/64 Respiration from ECG 16 I&O: 11/11/19 11/12/19 11/13/19 06:59 06:59 06:59 Intake Total 380 350 Balance 380 350 Result Diagrams: 11/12/19 05:06 11/12/19 05:06 Radiology Reviewed by me: No (Echo - reviewed) Hospitalist ROS - Review of Systems ENT: denies: ear pain, ear discharge, nose pain, nose discharge, nose congestion , mouth pain, mouth swelling, throat pain, throat swelling, other Respiratory: denies: cough, dry, shortness of breath, hemoptysis, SOB with excertion, pleuritic pain, sputum, wheezing, other - Medication Medications: Active Medications Generic Name Dose Route Start Last Admin Trade Name Freq PRN Reason Stop Dose Admin Calcitriol 0.25 mcg 11/12/19 09:00 11/12/19 12:58 Rocaltrol PO 0.25 mcg DAILY [facility] Administration Cyanocobalamin 1,000 mcg 11/12/19 09:00 11/12/19 12:58 Vitamin B-12 PO Not Given DAILY [facility] Epoetin Larry-epbx 7,500 unit 11/12/19 12:00 11/12/19 17:29 Retacrit SC 7,500 unit Q7D [place] Administration Folic Acid 1 mg 11/12/19 09:00 11/12/19 12:58 Folvite PO Not Given DAILY [facility] Hydralazine HCl 25 mg 11/11/19 21:00 11/12/19 20:01 Apresoline PO 25 mg TID [place] Administration Losartan Potassium 50 mg 11/11/19 21:00 11/12/19 20:01 Cozaar PO 50 mg BID [place] Administration Ondansetron HCl 4 mg 11/11/19 15:45 11/12/19 18:44 Zofran IVP 4 mg Q6H PRN Administration Nausea/Vomiting Phenyleph/Shark Oil/[place] Butter 1 supp 11/11/19 22:10 11/11/19 23:19 Preparation H DC 1 supp QID PRN Administration Hemorrhoids Polyethylene Glycol/Electrolytes 4,000 ml 11/12/19 16:30 11/12/19 17:43 Golytely PO 11/12/19 23:59 4,000 ml NOW [place] Administration Sodium Chloride 10 ml 11/11/19 21:00 11/12/19 20:04 Flush - Normal Saline IVF 10 ml Q12HR [place] Administration - Exam Neck: supple, no JVD Heart: RRR, no gallops, no rubs, normal peripheral pulses Respiratory: no wheezes, no rales, no ronchi, normal chest expansion, no tachypnea Gastrointestinal: soft, non-distended, normal bowel sounds, no guarding, no rigidity, tender to palpation (RLQ) Extremities: no cyanosis, no clubbing Neurological: no focal deficits Psychiatric: normal affect, A&O x 3 Hosp A/P - Plan DVT proph w/SCDs 1. GI bleeding. 2. Paroxysmal atrial fibrillation, on chronic anticoagulation. 3. Acute blood loss anemia. 4. Generalized weakness secondary to GI bleeding. 5. Chronic systolic and diastolic heart failure, appears to be compensated. 6. Coronary artery disease, on low-dose aspirin. 7. Chronic pancytopenia. 8. Gastroesophageal reflux disease. 9. History of partial gastrectomy. 10. Hypertension. 11. Hyperlipidemia. 12. End-stage renal disease, on hemodialysis. PLAN: Cont Protonix drip s/p 2 unit PRBC Monitor H/H Dialysis per Nephrology Cont hydralazine and losartan. Await GI/Cardio input Anticoag on hold
[2019-11-13 09:00] LABS: Hemoglobin 10.5 g/dL (12.0-16.0); Mean Corpuscular HGB CONC 34.6 g/dL (32.0-36.0); Mean Corpuscular Hemoglobin 33.7 pg (27.0-31.0); Mean Corpuscular Volume 97.4 fL (78.0-98.0); Mean Platelet Volume 8.9 fL (7.4-10.4); Platelet Count 98 thou/uL (130-400); RBC Distribution Width 15.4 % (11.5-14.5); White Blood Cell (WBC) Count 1.8 thou/uL (4.8-10.8)
[2019-11-13 09:11] LABS: Anion Gap 18 mmol/L (10-20); BUN (Urea Nitrogen) 24 mg/dL (9.8-20.1); Calc. Creatinine Clearance 11 mL/min (70-130); Calcium 8.5 mg/dL (7.8-10.44); Carbon Dioxide 26 mmol/L (23-31); Chloride 99 mmol/L (98-107); Estimated GFR-MDRD 12; Glucose 77 mg/dL (83-110); Potassium 3.7 mmol/L (3.5-5.1); Sodium 139 mmol/L (136-145)
[2019-11-13] MEDS ORDERED: PHENYLEPHRINE-NS 100 MCG/ML 10 ML SYRINGE ONE (09:14)
[2019-11-13 09:20] LABS: Large Platelets SLIGHT; Lymphocytes 17 % (21-51); MDiff Complete? YES; Monocytes 16 % (0-10); Neutrophil 62 % (42-75); Platelet Morphology Comment Appears Decreased; Polychromasia SLIGHT = 2-3 cells (100X) (0-2/hpf); Reactive Lymphocytes 3 % (0-10)
[2019-11-13] MEDS: hydrALAZINE 25 MG TAB PO SCH ×3 (09:20→20:26)
[2019-11-13] MEDS: Calcitriol 0.25 MCG CAP PO SCH (09:20)
[2019-11-13] MEDS: Cyanocobalamin (Vitamin B-12) 1,000 MCG TAB PO SCH (09:20)
[2019-11-13] MEDS: Losartan 25 MG TAB PO SCH ×2 (09:20→20:26)
[2019-11-13] MEDS: Folic Acid 1 MG TAB PO SCH (09:20)
[2019-11-13] MEDS ORDERED: Ketamine 50 MG/ML (10ML VIAL) ONE ×2 (10:28→11:36)
--- NOTE | 2019-11-13 11:30 | PRG ---
DATE OF SERVICE: 11/13/2019 SUBJECTIVE: Ms. Augustine is a 74-year-old white female with ESRD and maintenance hemodialysis and was admitted for GI bleed. Gastroenterology has evaluated this patient. The plan is for her to undergo an upper and lower GI endoscopy. She is tolerating dialysis. She did receive 2 units of packed RBC with dialysis yesterday. She is feeling better. She feels hungry today. No complaints of chest pain or shortness of breath. OBJECTIVE: VITAL SIGNS: Blood pressure before BP medications, heart rate 60, respiratory rate 18, temperature 98.1, and pulse ox 99%. GENERAL: Noted to be awake, alert, comfortable, and sitting, not in distress. SKIN: Adequate turgor. HEENT: Pinkish conjunctivae. Anicteric sclerae. NECK: No neck mass. No carotid bruits. No JVD. CHEST: No deformities. LUNGS: Clear breath sounds. HEART: Normal sinus rhythm. No murmur. No gallops. No rubs. ABDOMEN: Globular, soft, and nontender. No masses. EXTREMITIES: No edema. No deformities. MEDICATIONS: Of November 13, 2019, was reviewed. LABORATORY DATA: Of November 13, 2019; white count 1.8, hemoglobin 10.5. Sodium 139, potassium 3.7, chloride 99, carbon dioxide 26, BUN 24, creatinine 3.6, and calcium 8.5. Vitamin B12 of 167. ASSESSMENT AND PLAN: 1. End-stage renal disease, stable. We will continue current Friday, Friday, and Friday hemodialysis. No indication for any dialytic intervention at the present time. 2. Anemia secondary to gastrointestinal bleed. P.r.n. blood transfusion. Continue weekly Epogen with this patient. The patient is scheduled for an upper and lower gastrointestinal endoscopy with Gastroenterology. Agree with current management. Recheck CBC in a.m. Job ID: [id number]
[2019-11-13] MEDS ORDERED: Cyanocobalamin 1000 MCG/ML VIAL IM SCH (13:15)
--- NOTE | 2019-11-13 14:11 | PDOC.HOSPP ---
- Subjective Encounter Date: 11/13/19 Subjective: Very somnolent post procedure. - Objective Vital Signs & Weight: Vital Signs (12 hours) Temp Pulse Resp BP BP Pulse Ox 11/13/19 07:41 98.1 F 60 18 192/51 H 99 11/13/19 03:40 98.4 F 56 L 16 162/60 H 99 Weight Weight 111 lb 5.335 oz Most Recent Monitor Data Heart Rate from ECG 54 NIBP 158/64 Respiration from ECG 16 I&O: 11/12/19 11/13/19 11/14/19 06:59 06:59 06:59 Intake Total 380 350 Balance 380 350 Result Diagrams: 11/13/19 08:23 11/13/19 08:23 Hospitalist ROS - Medication Medications: Active Medications Generic Name Dose Route Start Last Admin Trade Name Freq PRN Reason Stop Dose Admin Calcitriol 0.25 mcg 11/12/19 09:00 11/13/19 09:20 Rocaltrol PO Not Given DAILY [facility] Epoetin Larry-epbx 7,500 unit 11/12/19 12:00 11/12/19 17:29 Retacrit SC 7,500 unit Q7D [place] Administration Folic Acid 1 mg 11/12/19 09:00 11/13/19 09:20 Folvite PO Not Given DAILY [facility] Hydralazine HCl 25 mg 11/11/19 21:00 11/13/19 09:20 Apresoline PO 25 mg TID [place] Administration Losartan Potassium 50 mg 11/11/19 21:00 11/13/19 09:20 Cozaar PO 50 mg BID [place] Administration Ondansetron HCl 4 mg 11/11/19 15:45 11/12/19 18:44 Zofran IVP 4 mg Q6H PRN Administration Nausea/Vomiting Phenyleph/Shark Oil/[place] Butter 1 supp 11/11/19 22:10 11/11/19 23:19 Preparation H [place] 1 supp QID PRN Administration Hemorrhoids Sodium Chloride 10 ml 11/11/19 21:00 11/13/19 12:59 Flush - Normal Saline IVF Not Given Q12HR [place] - Exam General Appearance: NAD General - other findings: awakens and follows commands. Heart: RRR, no murmur, no gallops, no rubs, normal peripheral pulses Respiratory: CTAB, no wheezes, no rales, no ronchi, normal chest expansion, no tachypnea, normal percussion Gastrointestinal: soft, non-tender, non-distended, normal bowel sounds, no palpable masses, no hepatomegaly, no splenomegaly, no bruit Gastrointestinal - other findings: Umbilical hernia Extremities: no cyanosis, no clubbing, no edema Skin: normal turgor Hosp A/P (1) GI bleed Code(s): K92.2 - GASTROINTESTINAL HEMORRHAGE, UNSPECIFIED Status: Acute (2) Vitamin B12 deficiency Code(s): E53.8 - DEFICIENCY OF OTHER SPECIFIED B GROUP VITAMINS Status: Acute (3) ESRD (end stage renal disease) on dialysis Code(s): N18.6 - END STAGE RENAL DISEASE; Z99.2 - DEPENDENCE ON RENAL DIALYSIS Status: Chronic (4) Pancytopenia Code(s): D61.818 - OTHER PANCYTOPENIA Status: Chronic (5) PAF (paroxysmal atrial fibrillation) Code(s): I48.0 - PAROXYSMAL ATRIAL FIBRILLATION Status: Acute (6) CAD (coronary artery disease) Code(s): I25.10 - ATHSCL HEART DISEASE OF [place] CORONARY ARTERY W/O ANG PCTRS Status: Acute (7) GERD (gastroesophageal reflux disease) Code(s): K21.9 - GASTRO-ESOPHAGEAL REFLUX DISEASE WITHOUT ESOPHAGITIS Status: Acute - Plan Endoscopy only revealed colon polyps. B12 injections initiated. Had and exaggerated response to sedation. Will watch overnight. If stable, may be able to DC tomorrow for OP B12 injections. Continue HD per nephrology.
[2019-11-14 05:12] LABS: #Eosinphils 0.1 thou/uL (0.0-0.7); #Lymphocytes 0.4 thou/uL (1.20-3.40); #Monocytes 0.6 thou/uL (0.11-0.59); #Neutrophils 2.9 thou/uL (1.40-6.50); %Basophils 0.4 % (0.0-1.0); %Eosinophils 1.4 % (0.0-10.0); %Monocytes 14.5 % (0.0-10.0); %Neutrophils 72.6 % (42.0-75.0); Hemoglobin 9.3 g/dL (12.0-16.0); Mean Corpuscular HGB CONC 34.3 g/dL (32.0-36.0); Mean Corpuscular Hemoglobin 33.7 pg (27.0-31.0); Mean Corpuscular Volume 98.3 fL (78.0-98.0); Mean Platelet Volume 8.8 fL (7.4-10.4); Platelet Count 104 thou/uL (130-400); RBC Distribution Width 15.5 % (11.5-14.5); Red Blood Cell (RBC) Count 2.74 mill/uL (4.20-5.40)
--- NOTE | 2019-11-14 09:55 | OP ---
DATE OF PROCEDURE: PROCEDURES PERFORMED: 1. Esophagogastroduodenoscopy. 2. Colonoscopy. PREPROCEDURE DIAGNOSES: 1. Gastrointestinal bleed. 2. Anticoagulation. 3. Heart failure. 4. Coronary artery disease. 5. Renal failure. 6. Prior history of large rectal polyp, removed surgically. 7. 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 POSTPROCEDURE DIAGNOSES: 1. 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 This is nonbleeding. We were unable to biopsy or take this out as the patient did develop respiratory depression and we had to abort the upper endoscopy. This was despite very minimal sedation with ketamine. It was felt that to safely perform the rest of an upper endoscopy that she would have to be put on the ventilator, from which we were not sure that she would be able to come off. There were no bleeding sites identified. The anastomosis looked fine and the upper endoscopy was aborted. 2. Colonoscopy showed blood throughout the colon. There were several polyps in the colon, most are very small. There were 3 large polyps, 1 in the rectum, 1 in the sigmoid, 1 in the descending, all with heme staining and superficial ulceration. These were removed by hot snare polypectomy and submitted to the pathology. There was no other bleeding sites identified. The terminal ileum was entered and found to be normal. RECOMMENDATION: 1. Strong consideration should be given to discontinuation of anticoagulation in this patient. I think she will have further bleeds in the future with this and she is not a candidate for further endoscopy due to the anesthetic difficulties with providing any anesthesia without general anesthetic, which I do not think she would tolerate. 2. Await pathology. 3. Resume diet. 4. PPI therapy. ANESTHESIA: TIVA. For details of anesthesia, see above. COMPLICATIONS: The patient became hypoxemic, bradycardic, and hypotensive, requiring bag-mask ventilation, pressor support for a time. She never did rest. This was with only a very small amounts of sedation. PROCEDURE IN DETAIL: After the patient and family were informed of the risks, benefits, and possible complications of endoscopy including perforation, bleeding, reaction to medication, and aspiration, informed consent was obtained. The patient was brought to the endoscopy suite, where she was sedated in a gradual fashion. Once she was comfortable, a bite block was placed inside the orifice. The endoscope was advanced to the esophagus, stomach, and anastomosis was noted to the duodenum. This was traversed. No bleeding sites were identified here. Old blood was noted here in the stomach. A 1 cm flat polyp was noted in the anterior aspect of the anastomosis on the gastric side. This was being evaluated for possible polypectomy and the patient developed symptoms of airway obstruction, hypoxemia, and bradycardia. Therefore, the endoscope was removed. Once she was resuscitated and anesthesia felt it was best not to perform upper endoscopy without intubation as they felt it was life-threatening, we could intubate her, I felt it was not, so we did not. The patient did well. We turned into the room and she had bright red blood coming from her rectum. The endoscope was advanced to the anal canal through the colon to the cecum, which was identified by ileocecal valve and appendiceal orifice. The colon was very tortuous. The prep was fair. Diminutive polyps found in the right colon, not removed. Large polyps removed in the descending colon, it was ulcerated surface, removed by hot snare polypectomy and submitted to Pathology. One was removed in the cecum and the rectum as well. These were about all about a centimeter in size with superficial bleeding. No other bleeding sites were identified. There was no evidence of overt ulcers or early AVMs in the colon. Scope was removed. The patient tolerated the procedure well. There were no complications. Job ID: [id number]
[2019-11-14] MEDS: hydrALAZINE 25 MG TAB PO SCH ×3 (09:56→20:51)
[2019-11-14] MEDS: Folic Acid 1 MG TAB PO SCH (09:56)
[2019-11-14] MEDS: Calcitriol 0.25 MCG CAP PO SCH (09:56)
[2019-11-14] MEDS: Losartan 25 MG TAB PO SCH ×2 (09:56→20:51)
--- NOTE | 2019-11-14 11:12 | PRG ---
DATE OF SERVICE: 11/14/2019 SUBJECTIVE: Ms. Auugstine is a 74-year-old female with history of ESRD and currently on maintenance hemodialysis. She was admitted for GI bleed. She underwent upper GI endoscopy and colonoscopy. As per recommendation by GI, suggestion for discontinuation of anticoagulation. The concern was is that you may have further bleed. The colonoscopy shows several polyps and they were removed by snare polypectomy. Upper GI endoscopy was not fully done due to the fact that the patient did not tolerate the said procedure. This morning, she voices no new complaints. She still passes some dark tarry stools. This may be a reflection of the recent GI bleed that she has. She is tolerating p.o. better. No complaints. No chest pain or shortness of breath. OBJECTIVE: VITAL SIGNS: Blood pressure 164/61, heart rate 67, respiratory rate 15, temperature 98.5, and pulse ox 98%. GENERAL: Noted to be awake, alert, comfortable, not in distress. SKIN: Adequate turgor. HEENT: She has slightly pale conjunctivae. Anicteric sclerae. NECK: No neck mass. No carotid bruits. No JVD. CHEST: No deformities. LUNGS: Clear breath sounds. HEART: Normal sinus rhythm. No murmur. No gallops. No rubs. ABDOMEN: Globular, soft, and nontender. No masses. EXTREMITIES: No edema. No deformities. MEDICATIONS: Medications of November 14, 2019, were reviewed. LABORATORY DATA: Laboratories of November 14, 2019; white count 4, hemoglobin 9.3. ASSESSMENT AND PLAN: 1. End-stage renal disease, stable. We will continue current heparin-free hemodialysis due to the recent gastrointestinal bleed. Fluid removal only as tolerated by the patient. Continue Friday, Friday, and Friday schedule. 2. Anemia. P.r.n. blood transfusion. Continuing weekly Epogen. 3. Status post gastrointestinal bleed, stabilizing. GI is following. Recommendation is to hold off any anticoagulation. Recheck basic metabolic panel and CBC in a.m. Job ID: [id number]
--- NOTE | 2019-11-14 12:41 | PRG ---
DATE OF SERVICE: 11/14/2019 SUBJECTIVE: Ms. Augustine is feeling pretty good today. She is still weak, wants to get up and walk with some help of the nurses. She tells me that she felt like maybe she during her endoscopy. She saw a white stairway and people in white seats, but faces she could not recognize. She was looking her son actually. Presently, she notes that she had some blood still admixed her stools. Last night, I have talked with the nurse . She has had no bowel movements this morning since 4 a.m. She denies abdominal pain. States she feels a little better. She has been eating more advance diet. MEDICATIONS: She remains on a Protonix drip. Otherwise, her other cardiac and renal medicines. OBJECTIVE: VITAL SIGNS: Temperature is 98, pulse 68, respirations 16, O2 saturation 91% to 98%, and blood pressure 167/67. LUNGS: Clear. HEART: Regular rhythm. ABDOMEN: Soft and nontender. There is no rebound. There is no guarding. LABORATORY DATA: Labs today; white count 4, hemoglobin 9.3, and platelet count 104,000. BUN and creatinine are 24 and 1.3. Vitamin B12 was 167. Folate was 10.4. ASSESSMENT AND PLAN: 1. Chronic anemia, likely multifactorial. She has B12 deficiency. She has not been on B12. She needs to be on B12 parenterally for the rest of her life as she has had oral B12 well. 2. Gastrointestinal bleed, likely related to diverticula or the polyps that seem to be bleeding. Alternately, she could have some hemorrhoidal bleeding. Large polyps removed. She has some bleeding last night still, but this seems to have resolved now. 3. Chronic anticoagulation. Talked with Dr. Ronquillo, he is going to go ahead and stop her Eliquis as she seems to be relatively anticoagulated with her renal disease and platelet dysfunction. 4. She is not a candidate for a conscious sedation or endoscopy in the future without general endotracheal anesthesia. She has had difficulty maintaining saturations, blood pressure and became bradycardic in the procedure, but she did not have an arrest. I have discussed these issues with the patient's family and the patient. 5. We will stop Protonix drip that is unnecessary. She has a small polyp in the stomach that is nonbleeding, it was not removed. She could not tolerate the extended time in the endoscopy to perform in, but I think there is no need to remove this in the future. I do not think it has become a problem for some time and she has other medical problems to deal with. Job ID: [id number]
--- NOTE | 2019-11-14 15:34 | PDOC.CPN ---
- Subjective Date: 11/14/19 Time: 15:45 Interval history: Mrs. Augustine is awake, watching TV with her family at bedside. She tells me " I think I during the colonoscopy". Feeling okay now, just some weakness, getting OOB with nurse assist. Denies any further dark stools today, last was early am. Denies chest pain or tightness. Has some SOB with exertion, no change. Denies cough. Denies N/V/D. She reports she was having dark, tarry stools for almost the last 2 weeks. - Review of Systems General: denies: fever/chills, weight/appetite/sleep changes, night sweats, fatigue Respiratory: reports: shortness of breath Cardiovascular: denies: chest pain, palpitation, edema, paroxysmal nocturnal dyspnea, orthopnea Gastrointestinal: denies: nausea, vomiting, diarrhea, constipation, abd pain, GI bleeding Musculoskeletal: denies: pain, tenderness, stiffness, swelling, arthritis/ arthralgias Neurological: reports: weakness - Objective Allergies/Adverse Reactions: Allergies Allergy/AdvReac Type Severity Reaction Status Date / Time diphenhydramine HCl Allergy Verified 11/20/15 00:09 [From Benadryl] minoxidil Allergy Verified 11/20/15 00:09 morphine Allergy Verified 11/20/15 00:09 promethazine HCl Allergy Verified 11/20/15 00:09 [From Phenergan] Visit Medications: Current Medications Acetaminophen (Tylenol) 650 mg PO Q4H PRN PRN Reason: Headache/Fever/Mild Pain (1-3) Calcitriol (Rocaltrol) 0.25 mcg PO DAILY [facility] Last Admin: 11/14/19 09:56 Dose: 0.25 mcg Calcium Carbonate (Tums) 1,000 mg PO Q4H PRN PRN Reason: Heartburn or Indigestion Clonidine (Catapres) 0.1 mg PO Q4H PRN PRN Reason: SBP Greater Than 180 Epoetin Larry-epbx (Retacrit) 7,500 unit SC Q7D [facility] Last Admin: 11/12/19 17:29 Dose: 7,500 unit Folic Acid (Folvite) 1 mg PO DAILY [facility] Last Admin: 11/14/19 09:56 Dose: 1 mg Hydralazine HCl (Apresoline) 25 mg PO TID [facility] Last Admin: 02/23/20 09:56 Dose: 25 mg Losartan Potassium (Cozaar) 50 mg PO BID [facility] Last Admin: 11/14/19 09:56 Dose: 50 mg Ondansetron HCl (Zofran Odt) 4 mg PO Q6H PRN PRN Reason: Nausea/Vomiting Ondansetron HCl (Zofran) 4 mg IVP Q6H PRN PRN Reason: Nausea/Vomiting Last Admin: 11/12/19 18:44 Dose: 4 mg Pantoprazole Sodium (Protonix) 40 mg IVP DAILY [facility] Phenyleph/Shark Oil/[place] Butter (Preparation H) 1 supp MT QID PRN PRN Reason: Hemorrhoids Last Admin: 11/11/19 23:19 Dose: 1 supp Senna/Docusate Sodium (Senokot S) 2 tab PO BID PRN PRN Reason: Constipation Sodium Chloride (Flush - Normal Saline) 10 ml IVF Q12HR [facility] Last Admin: 11/14/19 09:57 Dose: 10 ml Sodium Chloride (Flush - Normal Saline) 10 ml IVF PRN PRN PRN Reason: Saline Flush Sodium Chloride (Flush - Normal Saline) 10 ml IVF PRN PRN PRN Reason: Saline Flush Sodium Chloride (Flush - Normal Saline) 10 ml IVF PRN PRN PRN Reason: Saline Flush Vital Signs & Weight: Vital Signs Temp Pulse Resp BP Pulse Ox 11/14/19 15:29 98.1 F 75 18 173/62 H 93 L 11/14/19 11:30 98.1 F 68 16 167/67 H 91 L 11/14/19 07:42 98.5 F 67 15 164/61 H 98 11/14/19 04:00 98.7 F 73 16 141/83 H 95 Weight 111 lb 5.335 oz - CHADS-VASc Congestive heart failure: 1 Hypertension: 1 Age >75: 2 Diabetes mellitus: 1 Vascular disease: 1 Female: 1 Risk Score: 7 - Quality Measures Condition: Atrial Fibrillation/Flutter (hx or current) CV meds: Anticoagulant: No - Medication Contraindications No Anticoagulant reason: Anticoagulant not tolerated (Recent GI bleed) - Physical Exam General: alert & oriented x3, appears well, no apparent distress HEENT: mucus membranes moist Neck: supple neck, no bruit Cardiac: regular rate and rhythm, no murmur, S1/S2 Lungs: clear to auscultation, normal breath sounds, no wheeze, rales, rhonchi Neuro: grossly intact Abdomen: active bowel sounds, soft Extremities: no edema - Labs Result Diagrams: 11/14/19 04:52 11/13/19 08:23 - Assessment/Plan Assessment/Plan: 1. CAD-s/p CABG 2. ESRD on HD 3. HTN-labile, hypotensive episodes during/after HD 4. Anemia 5. B12 Deficiency 6. Paroxysmal AFib Developed bradycardia, hypoxemia, and hypotensions with concious sedation for endoscopy. Since recovered, feeling better. No further dark, tarry stools. Started B12 injections, s/p 2 units PRBCs. Monitor labs. Intolerant to OAC. Endoscopy showed single polyp in stomach, nonbleeding. None removed. ASA only.
--- NOTE | 2019-11-14 23:01 | PDOC.HOSPP ---
- Subjective Encounter Date: 11/14/19 Subjective: Feeling much better overall. Had some passage of old blood last night. None since. Otherwise ok. - Objective Vital Signs & Weight: Vital Signs (12 hours) Temp Pulse Resp BP BP Pulse Ox 11/14/19 20:51 67 175/64 H 11/14/19 20:07 97.6 F 67 17 164/53 H 96 11/14/19 15:29 98.1 F 75 18 173/62 H 93 L 11/14/19 11:30 98.1 F 68 16 167/67 H 91 L Weight Weight 111 lb 5.335 oz Most Recent Monitor Data Heart Rate from ECG 54 NIBP 158/64 Respiration from ECG 16 I&O: 11/13/19 11/14/19 11/15/19 06:59 06:59 06:59 Intake Total 350 1240 1500 Balance 350 1240 1500 Result Diagrams: 11/14/19 04:52 11/13/19 08:23 Hospitalist ROS - Medication Medications: Active Medications Generic Name Dose Route Start Last Admin Trade Name Freq PRN Reason Stop Dose Admin Calcitriol 0.25 mcg 11/12/19 09:00 11/14/19 09:56 Rocaltrol PO 0.25 mcg DAILY [facility] Administration Epoetin Larry-epbx 7,500 unit 11/12/19 12:00 11/12/19 17:29 Retacrit SC 7,500 unit Q7D [facility] Administration Folic Acid 1 mg 11/12/19 09:00 11/14/19 09:56 Folvite PO 1 mg DAILY [place] Administration Hydralazine HCl 25 mg 11/11/19 21:00 11/14/19 20:51 Apresoline PO 25 mg TID [place] Administration Losartan Potassium 50 mg 11/11/19 21:00 11/14/19 20:51 Cozaar PO 50 mg BID [place] Administration Ondansetron HCl 4 mg 11/11/19 15:45 11/12/19 18:44 Zofran IVP 4 mg Q6H PRN Administration Nausea/Vomiting Phenyleph/Shark Oil/[place] Butter 1 supp 11/11/19 22:10 11/11/19 23:19 Preparation H SD 1 supp QID PRN Administration Hemorrhoids Sodium Chloride 10 ml 11/11/19 21:00 11/14/19 20:51 Flush - Normal Saline IVF 10 ml Q12HR [place] Administration - Exam General Appearance: NAD, awake alert Heart: RRR, no murmur, no gallops, no rubs, normal peripheral pulses Respiratory: CTAB, no wheezes, no rales, no ronchi, normal chest expansion, no tachypnea, normal percussion Gastrointestinal: soft, non-tender, non-distended, normal bowel sounds, no palpable masses, no hepatomegaly, no splenomegaly, no bruit Extremities: no cyanosis, no clubbing, no edema Skin: normal turgor Musculoskeletal: normal tone, normal strength, no muscle wasting Psychiatric: normal affect, normal behavior, A&O x 3 Hosp A/P (1) GI bleed Code(s): K92.2 - GASTROINTESTINAL HEMORRHAGE, UNSPECIFIED Status: Acute (2) Vitamin B12 deficiency Code(s): E53.8 - DEFICIENCY OF OTHER SPECIFIED B GROUP VITAMINS Status: Acute (3) ESRD (end stage renal disease) on dialysis Code(s): N18.6 - END STAGE RENAL DISEASE; Z99.2 - DEPENDENCE ON RENAL DIALYSIS Status: Chronic (4) Pancytopenia Code(s): D61.818 - OTHER PANCYTOPENIA Status: Chronic (5) PAF (paroxysmal atrial fibrillation) Code(s): I48.0 - PAROXYSMAL ATRIAL FIBRILLATION Status: Acute (6) CAD (coronary artery disease) Code(s): I25.10 - ATHSCL HEART DISEASE OF [place] CORONARY ARTERY W/O ANG PCTRS Status: Acute (7) GERD (gastroesophageal reflux disease) Code(s): K21.9 - GASTRO-ESOPHAGEAL REFLUX DISEASE WITHOUT ESOPHAGITIS Status: Acute - Plan Endoscopy only revealed colon polyps. No specific source of bleeding. Off anticoagulation. ASA only. Recheck levels in am. B12 injections initiated. Had and adverse response to sedation. Seems fully resolved. If stable, may be able to DC tomorrow for OP B12 injections. Continue HD per nephrology.
[2019-11-15 05:11] LABS: #Eosinphils 0.1 thou/uL (0.0-0.7); #Lymphocytes 0.6 thou/uL (1.20-3.40); #Monocytes 0.3 thou/uL (0.11-0.59); #Neutrophils 2.2 thou/uL (1.40-6.50); %Lymphocytes 17.4 % (21.0-51.0); %Monocytes 10.6 % (0.0-10.0); Hemoglobin 8.7 g/dL (12.0-16.0); Mean Corpuscular HGB CONC 32.8 g/dL (32.0-36.0); Mean Corpuscular Hemoglobin 32.6 pg (27.0-31.0); Mean Corpuscular Volume 99.5 fL (78.0-98.0); Mean Platelet Volume 8.7 fL (7.4-10.4); Platelet Count 104 thou/uL (130-400); RBC Distribution Width 15.5 % (11.5-14.5); Red Blood Cell (RBC) Count 2.66 mill/uL (4.20-5.40); White Blood Cell (WBC) Count 3.2 thou/uL (4.8-10.8)
[2019-11-15 05:31] LABS: Anion Gap 18 mmol/L (10-20); BUN (Urea Nitrogen) 35 mg/dL (9.8-20.1); Calc. Creatinine Clearance 7 mL/min (70-130); Calcium 8.3 mg/dL (7.8-10.44); Carbon Dioxide 24 mmol/L (23-31); Chloride 98 mmol/L (98-107); Estimated GFR-MDRD 7; Glucose 99 mg/dL (83-110); Potassium 4.3 mmol/L (3.5-5.1); Sodium 136 mmol/L (136-145)
--- NOTE | 2019-11-15 08:44 | PRG ---
DATE OF SERVICE: 11/15/2019 SUBJECTIVE: Ms. Augustine is a 74-year-old female with ESRD and currently on maintenance hemodialysis. She is undergoing heparin-free hemodialysis. She was initially admitted due to a GI bleed. No other complaints today. She is tolerating said treatment. She has undergone an upper and lower GI endoscopy. As per recommendation by GI, is to probably hold anticoagulation. OBJECTIVE: VITAL SIGNS: Blood pressure is 176/60, heart rate 60, respiratory rate 18, temperature 98.6, and pulse ox 96%. GENERAL: Awake, alert, comfortable, not in overt distress. SKIN: Adequate turgor. HEENT: She has a slightly pale conjunctivae. Anicteric sclerae. NECK: No neck mass. No carotid bruits. No JVD. CHEST: No deformities. LUNGS: Clear breath sounds. No wheezing. No crackles. HEART: Normal sinus rhythm. No murmur. No gallops. No rubs. ABDOMEN: Globular, soft, nontender. No masses. EXTREMITIES: No edema. No deformities. MEDICATIONS: Medications of November 15, 2019, reviewed. LABORATORY DATA: Laboratories of November 15, 2019; white count 3.2, hemoglobin 8.7, sodium 136, potassium 4.3, chloride 98, carbon dioxide 24, BUN 35, creatinine 5.92, calcium 8.3, folate 10.4. ASSESSMENT AND PLAN: 1. Anemia/status post gastrointestinal bleed-stabilizing. H and H status post endoscopies. Continue to hold anticoagulation. Continue weekly Epogen. 2. End-stage renal disease, stable, continuing heparin free hemodialysis. Fluid removal only as tolerated. Agree with current management. Job ID: [id number]
--- NOTE | 2019-11-15 11:28 | PRG ---
DATE OF SERVICE: 11/15/2019 SUBJECTIVE: Ms. Reyna is on dialysis. She feels weak, but she does on dialysis. She states she had a little bit of blood in her bowel movement this morning. I talked to the nurse, this was a small scant amount of bright red blood mixed with brown stool. The nurse checked the records and she had three stools yesterday with little bit of blood mixed with stool. OBJECTIVE: VITAL SIGNS: Temperature is 98.6, pulse 60, blood pressure 176/60. GENERAL: She is very frail and thin. LUNGS: Clear. ABDOMEN: Soft. Nontender. LABORATORY DATA: White count 3.2, hemoglobin 8.7, was 9.3 yesterday, platelet count 104. BMP normal with a BUN and creatinine 35 and 5.2. ASSESSMENT: Persistent lower gastrointestinal bleeding. It is unclear if this is just hemorrhoidal or possibly related to the polypectomy. She had polypectomy for some fairly large polyps that were oozing at the time of her colonoscopy. It was felt that part of the problem was her Eliquis. She did have a large rectal polyp that was removed and she had a sigmoid polyp that was difficult to remove position. These were both would be at risk for post polypectomy bleeding. RECOMMENDATIONS: I think she should stay in the hospital another 24 hours for observation to make sure her bleeding is resolving. Typical post polypectomy bleeding, you would see blood every 30 minutes or so, which does not seem to be happening, but she is very frail and high risk with extensive cardiac and vascular disease. I would observe her here and monitor hemoglobin. My partner will follow up on tomorrow as I will be out of town. I have talked with the patient's nurse. Job ID: [id number]
[2019-11-15] MEDS: Folic Acid 1 MG TAB PO SCH (13:09)
[2019-11-15] MEDS: Calcitriol 0.25 MCG CAP PO SCH (13:09)
[2019-11-15] MEDS: Losartan 25 MG TAB PO SCH ×2 (13:09→21:14)
[2019-11-15] MEDS: Pantoprazole 40 MG VIAL IVP SCH (13:10)
[2019-11-15] MEDS: hydrALAZINE 25 MG TAB PO SCH ×3 (13:10→21:15)
--- NOTE | 2019-11-15 14:10 | PRG ---
DATE OF SERVICE: 11/15/2019 SUBJECTIVE: Ms. Augustine is hungry and she is eating. She feels better. She said "I'm just here." No chest pain or shortness of breath. OBJECTIVE: VITAL SIGNS: Blood pressure 176/60, pulse 60. LUNGS: Clear. CARDIAC: Normal S1, normal S2. ABDOMEN: Soft, nontender. LABORATORY DATA: Hemoglobin is 8.7. ASSESSMENT: 1. Gastrointestinal bleed on reduced dose Eliquis. 2. Polypectomy. PLAN: 1. Eliquis has been discontinued. 2. She would resume aspirin she is not bleeding. Job ID: [id number]
--- NOTE | 2019-11-15 21:25 | PDOC.HOSPP ---
- Subjective Encounter Date: 11/15/19 Subjective: Doing well. No complaints. Passed a little more blood this morning. - Objective Vital Signs & Weight: Vital Signs (12 hours) Temp Pulse Resp BP BP BP Pulse Ox 11/15/19 21:15 72 153/56 H 11/15/19 15:17 98.7 F 73 16 152/52 H 96 11/15/19 12:00 98.7 F 70 16 165/43 H 94 L Weight Weight 111 lb 5.335 oz Most Recent Monitor Data Heart Rate from ECG 54 NIBP 158/64 Respiration from ECG 16 I&O: 11/14/19 11/15/19 11/16/19 06:59 06:59 06:59 Intake Total 1240 1740 Balance 1240 1740 Result Diagrams: 11/15/19 04:52 11/15/19 04:52 Hospitalist ROS - Medication Medications: Active Medications Generic Name Dose Route Start Last Admin Trade Name Freq PRN Reason Stop Dose Admin Calcitriol 0.25 mcg 11/12/19 09:00 11/15/19 13:09 Rocaltrol PO 0.25 mcg DAILY [facility] Administration Calcium Carbonate 1,000 mg 11/11/19 15:45 11/15/19 00:18 Tums PO 1,000 mg Q4H PRN Administration Heartburn or Indigestion Epoetin Larry-epbx 7,500 unit 11/12/19 12:00 11/12/19 17:29 Retacrit SC 7,500 unit Q7D [facility] Administration Folic Acid 1 mg 11/12/19 09:00 11/15/19 13:09 Folvite PO 1 mg DAILY [facility] Administration Hydralazine HCl 25 mg 11/11/19 21:00 11/15/19 21:15 Apresoline PO 25 mg TID [place] Administration Losartan Potassium 50 mg 11/11/19 21:00 11/15/19 21:14 Cozaar PO 50 mg BID [place] Administration Ondansetron HCl 4 mg 11/11/19 15:45 11/12/19 18:44 Zofran IVP 4 mg Q6H PRN Administration Nausea/Vomiting Pantoprazole Sodium 40 mg 11/15/19 09:00 11/15/19 13:10 Protonix IVP 40 mg DAILY [facility] Administration Phenyleph/Shark Oil/[place] Butter 1 supp 11/11/19 22:10 11/11/19 23:19 Preparation H VT 1 supp QID PRN Administration Hemorrhoids Sodium Chloride 10 ml 11/11/19 21:00 11/15/19 21:15 Flush - Normal Saline IVF 10 ml Q12HR [facility] Administration - Exam General Appearance: NAD, awake alert Heart: RRR, no gallops, no rubs, normal peripheral pulses, II/IV Respiratory: CTAB, no wheezes, no rales, no ronchi, normal chest expansion, no tachypnea, normal percussion Gastrointestinal: soft, non-tender, non-distended, normal bowel sounds, no palpable masses, no hepatomegaly, no splenomegaly, no bruit Extremities: no cyanosis, no clubbing, no edema Musculoskeletal: normal tone Psychiatric: normal affect, normal behavior, A&O x 3 Hosp A/P (1) GI bleed Code(s): K92.2 - GASTROINTESTINAL HEMORRHAGE, UNSPECIFIED Status: Acute (2) Vitamin B12 deficiency Code(s): E53.8 - DEFICIENCY OF OTHER SPECIFIED B GROUP VITAMINS Status: Acute (3) ESRD (end stage renal disease) on dialysis Code(s): N18.6 - END STAGE RENAL DISEASE; Z99.2 - DEPENDENCE ON RENAL DIALYSIS Status: Chronic (4) Pancytopenia Code(s): D61.818 - OTHER PANCYTOPENIA Status: Chronic (5) PAF (paroxysmal atrial fibrillation) Code(s): I48.0 - PAROXYSMAL ATRIAL FIBRILLATION Status: Acute (6) CAD (coronary artery disease) Code(s): I25.10 - ATHSCL HEART DISEASE OF [place] CORONARY ARTERY W/O ANG PCTRS Status: Acute (7) GERD (gastroesophageal reflux disease) Code(s): K21.9 - GASTRO-ESOPHAGEAL REFLUX DISEASE WITHOUT ESOPHAGITIS Status: Acute (8) Colon polyps Code(s): K63.5 - POLYP OF COLON Status: Acute - Plan Endoscopy only revealed colon polyps - three removed. No specific source of bleeding. Off anticoagulation. ASA only when ready. Recheck hgb levels in am. B12 injections initiated. Had and adverse response to sedation. Seems fully resolved. If stable, may be able to DC tomorrow for OP B12 injections. Continue HD per nephrology.
[2019-11-16] MEDS ORDERED: hydrOXYzine 25 MG TAB PO SCH ×2 (02:45→09:00)
[2019-11-16 05:20] LABS: #Eosinphils 0.1 thou/uL (0.0-0.7); #Lymphocytes 0.5 thou/uL (1.20-3.40); #Monocytes 0.4 thou/uL (0.11-0.59); #Neutrophils 2.4 thou/uL (1.40-6.50); %Lymphocytes 13.7 % (21.0-51.0); %Monocytes 10.8 % (0.0-10.0); %Neutrophils 73.4 % (42.0-75.0); Hemoglobin 9.1 g/dL (12.0-16.0); Mean Corpuscular HGB CONC 32.1 g/dL (32.0-36.0); Mean Corpuscular Hemoglobin 32.5 pg (27.0-31.0); Mean Platelet Volume 8.7 fL (7.4-10.4); Platelet Count 105 thou/uL (130-400); Red Blood Cell (RBC) Count 2.82 mill/uL (4.20-5.40); White Blood Cell (WBC) Count 3.3 thou/uL (4.8-10.8)
[2019-11-16] MEDS ORDERED: Cyanocobalamin (Vitamin B-12) 1,000 MCG TAB PO SCH (09:00)
[2019-11-16] MEDS: Calcitriol 0.25 MCG CAP PO SCH (09:28)
[2019-11-16] MEDS: Losartan 25 MG TAB PO SCH (09:28)
[2019-11-16] MEDS: hydrALAZINE 25 MG TAB PO SCH ×2 (09:29→15:05)
[2019-11-16] MEDS: Pantoprazole 40 MG VIAL IVP SCH (09:31)
[2019-11-16] MEDS: Folic Acid 1 MG TAB PO SCH (09:31)
[2019-11-16 16:49] VITALS: BP 166/76; TEMP 98
--- NOTE | 2019-11-17 22:32 | PQF ---
ROSA ORTIZ DAVID R MD [id number] CLINICAL DOCUMENTATION CLARIFICATION FORM: POST DISCHARGE Addendum to original discharge summary date: ____ Late entry note date: __ DATE:11/17/2019 ATTN:JEREMIAH UNGER MD Please exercise your independent, professional judgment in responding to the clarification form. Clinical indicators are provided on the bottom of this form for your review Please check appropriate box(s): Kindly clarify the gastrointestinal bleeding etiology [ ] Gastrointestinal bleeding due to Polypectomy [ ] Gastrointestinal bleeding due to hemorrhoids [ ] Gastrointestinal bleeding due to peptic ulcer disease [ ] Gastrointestinal bleeding due to colon polyps [ ] Gastrointestinal bleeding due to Diverticula [ ] Other diagnosis [ ] Unable to determine For continuity of documentation, please document condition throughout progress notes and discharge summary. Thank You. CLINICAL INDICATORS - SIGNS / SYMPTOMS / LABS She had 3 episodes of dark maroon/blackish colored stool-Documented in H&P on by Tommy Lind MD GI bleeding suspected secondary to peptic ulcer disease-Documented in H&P on by Tommy Lind MD Generalized weakness secondary to GI bleeding - Documented in H&P on 11/11 by Tommy Lind MD GI bleed likely related to diverticula or the polyps that seem to be bleeding- Documented in PN on 11/14 by Chuck Mccain MD Persistent lower GI bleeding. It is unclear if this is just hemorrhoidal or possibly related to the polypectomy. She had polypectomy for some fairly large polyps that were oozing at the time of her colonoscopy. It was felt that part of the problem was her eliquis-Documented in PN on 11/15 by Chuck Mccain MD There were 3 large polyps, 1 in the rectum, 1 in the sigmoid, 1 in the descending -Documented in OP note 11/11 by Chuck Mccain [employer] GI bleeding suspected secondary to peptic ulcer disease-Documented in H&P on by Tommy Lind MD GI bleed likely related to diverticula or the polyps that seem to be bleeding- Documented in PN on 11/14 by Chuck Mccain MD Persistent lower GI bleeding. It is unclear if this is just hemorrhoidal or possibly related to the polypectomy. She had polypectomy for some fairly large polyps that were oozing at the time of her colonoscopy. It was felt that part of the problem was her eliquis-Documented in PN on 11/15 by Chuck Mccain MD TREATMENTS: Cont Protonix drip-Documented in Hospitalist progress note on 11/12 by tommy Lind s/p 2 unit PRBC-Documented in Hospitalist progress note on 11/12 by tommy Lind Esophagogastroduodenoscopy, colonoscopy-Documented in OP note 11/11 by Chuck Mccain Hot snare polypectomy and submitted to the pathology-Documented in OP note by Chuck Mccain Eliquis has been discontinued-Documented in PN on 11/15 by Chuck Mccain MD [employer] Sales Representative [employer] Win[employer] View[employer] (This form is maintained as a part of the permanent medical record) 2014 [email or web address]. All Rights Reserved [email or web address]
== END 2019-11-16 17:10 | disposition home or self-care (01) | DRG 377 ==
LOC: ERS 10:42 → SJJU 13:44
PROVIDERS: ADMIT Internal Medicine; ATTEND Internal Medicine
PROC: 0DJ08ZZ Inspection of Upper Intestinal Tract, Via Natural or Artificial Opening Endoscopic (ICD-10-PCS; 2019-11-11)
PROC: 0DBM8ZZ Excision of Descending Colon, Via Natural or Artificial Opening Endoscopic (ICD-10-PCS; 2019-11-11)
PROC: 0DBN8ZZ Excision of Sigmoid Colon, Via Natural or Artificial Opening Endoscopic (ICD-10-PCS; 2019-11-11)
PROC: 0DBP8ZZ Excision of Rectum, Via Natural or Artificial Opening Endoscopic (ICD-10-PCS; 2019-11-11)
PROC: 5A1D70Z Performance of Urinary Filtration, Intermittent, Less than 6 Hours Per Day (ICD-10-PCS; 2019-11-11)
PROC: 30233N1 Transfusion of Nonautologous Red Blood Cells into Peripheral Vein, Percutaneous Approach (ICD-10-PCS; principal; 2019-11-12)
DX: K57.31 Diverticulosis of large intestine without perforation or abscess with bleeding (principal); N18.6 End stage renal disease; I13.2 Hypertensive heart and chronic kidney disease with heart failure and with stage 5 chronic kidney disease, or end stage renal disease; I50.42 Chronic combined systolic (congestive) and diastolic (congestive) heart failure; J96.11 Chronic respiratory failure with hypoxia; D62 Acute posthemorrhagic anemia; D61.818 Other pancytopenia; I42.9 Cardiomyopathy, unspecified; K63.5 Polyp of colon; E78.5 Hyperlipidemia, unspecified; I25.10 Atherosclerotic heart disease of native coronary artery without angina pectoris; K21.9 Gastro-esophageal reflux disease without esophagitis; Z99.81 Dependence on supplemental oxygen; I48.0 Paroxysmal atrial fibrillation; Z90.49 Acquired absence of other specified parts of digestive tract; Z95.1 Presence of aortocoronary bypass graft; Z90.3 Acquired absence of stomach [part of]; Z88.5 Allergy status to narcotic agent; Z88.0 Allergy status to penicillin; Z88.8 Allergy status to other drugs, medicaments and biological substances; Z91.041 Radiographic dye allergy status; E53.8 Deficiency of other specified B group vitamins; I95.9 Hypotension, unspecified; R00.1 Bradycardia, unspecified; Z79.01 Long term (current) use of anticoagulants
CPT/HCPCS: 36415; 36430; 80048; 80053; 82274; 82607; 82728; 82746; 83540; 83550; 85025; 85610; 85730; 86850; 86870; 86900; 86901; 86921; 88305; 90935; 94760; 96361; 96365; 96376; C9113; G0257; J2405; J3420; J3490; P9016; Q5105

== ENCOUNTER 2020-05-20 16:33 | Inpatient (IN) | payer MEDICARE, OTHER ==
[~2020-05-20 16:33] MED LIST: Iopamidol-370 76% 500 ML 1 ML ONE
[2020-05-20] MEDS ORDERED: Ondansetron PF 4 MG/2 ML Vial ONE (17:46)
[2020-05-20 17:55] LABS: ALT (SGPT) 8 U/L (8-55); AST (SGOT) 18 U/L (5-34); Albumin 3.4 g/dL (3.4-4.8); Alkaline Phosphatase 83 U/L (40-110); Anion Gap 19 mmol/L (10-20); Anisocytosis SLIGHT = 6-15 cells (100X) (0-5/hpf); BUN (Urea Nitrogen) 31 mg/dL (9.8-20.1); Band 15 % (5-11); Calc. Creatinine Clearance 0 mL/min (70-130); Calcium 8.7 mg/dL (7.8-10.44); Carbon Dioxide 24 mmol/L (23-31); Chloride 97 mmol/L (98-107); Elliptocytes SLIGHT = 2-5 cells (100X) (0-1/hpf); Estimated GFR-MDRD 11; Globulin 3.5 g/dL (2.4-3.5); Glucose 72 mg/dL (83-110); Hemoglobin 12.5 g/dL (12.0-16.0); Lymphocytes 12 % (21-51); MDiff Complete? YES; Mean Corpuscular HGB CONC 31.6 g/dL (32.0-36.0); Mean Corpuscular Hemoglobin 31.8 pg (27.0-31.0); Mean Platelet Volume 9.8 fL (7.4-10.4); Monocytes 5 % (0-10); Neutrophil 68 % (42-75); Platelet Count 79 thou/uL (130-400); Platelet Morphology Comment Appears Decreased; Polychromasia SLIGHT = 2-3 cells (100X) (0-2/hpf); Potassium 4.2 mmol/L (3.5-5.1); Protein, Total 6.9 g/dL (6.0-8.3); RBC Distribution Width 15.5 % (11.5-14.5); Red Blood Cell (RBC) Count 3.91 mill/uL (4.20-5.40); Sodium 136 mmol/L (136-145); Vacuoles SLIGHT; White Blood Cell (WBC) Count 7.8 thou/uL (4.8-10.8)
--- NOTE | 2020-05-20 19:00 | RAD ---
PORTABLE CHEST: 05/20/20 PROVIDED CLINICAL HISTORY: Fever. FINDINGS: Comparison 05/13/20. The cardiac silhouette remains enlarged. Vascular calcifications and median sternotomy changes are r edemonstrated. Bilateral lung consolidation is redemonstrated, similar to slightly less conspicuous t palafox on prior. Multiple areas of overlying soft tissues produce linear attenuation differences over th e right and left hemithoraces. There is no pneumothorax apparent. Blunting of the right costophrenic angle may reflect pleural fluid. IMPRESSION: Cardiomegaly and bilateral lung consolidation appearing similar to slightly improved with respect to the prior study. POS: RAEGAN
[2020-05-20] MEDS ORDERED: methylPREDNISolone Sod Succ/PF 125 MG/2 ML VIAL ONE (19:37)
[2020-05-20] MEDS ORDERED: diphenhydrAMINE 12.5 MG/5 ML UDCUP ONE (19:37)
[2020-05-20] MEDS ORDERED: metroNIDAZOLE 500 MG/100 ML BAG ONE (19:37)
[2020-05-20] MEDS ORDERED: Famotidine/PF 20 mg/2ml Vial ONE (19:37)
[2020-05-20] MEDS ORDERED: Cefepime 2 GM VIAL ONE (19:37)
[2020-05-20] MEDS ORDERED: diphenhydrAMINE 50 MG/ML VIAL ONE (19:38)
[2020-05-20 20:14] LABS: Lactic Acid 2.7 mmol/L (0.5-2.2)
--- NOTE | 2020-05-20 20:16 | CT ---
CT ABDOMEN AND PELVIS WITHOUT CONTRAST: 05/20/20 PROVIDED CLINICAL HISTORY: Abdominal pain. FINDINGS: Comparison 11/21/15. There are extensive bibasilar patchy areas of parenchymal consolidation and ground glass opacity with associated interstitial thickening. Conspicuous soft tissue about the visualized hilar regions may reflect adenopathy or vasculature, inseparable due to lack of IV contrast. There are small bilateral pleural fluid collections. Extensive atherosclerotic vascular calcifications seen. There is diffuse noncircumscribed fluid densi ty within the regional subcutaneous and intraperitoneal fat compatible with anasarca. There is free intraperitoneal fluid demonstrated, with a somewhat loculated component in the right alegre bhepatic region measuring approximately 11.4 cm in craniocaudal dimension and about 9.8 cm in greates t transverse dimension. The fluid within the pelvis also appears somewhat loculated and both of these collections demonstrate a somewhat thick rim. The solid abdominal organs are suboptimally evaluated in the absence of IV contrast material. The kid neys are atrophic. Hepatic and splenic calcified granulomata are seen. There is no evidence for bowel obstruction. Assessment for inflammatory fat stranding is limited due to anasarca. There is no free intraperitoneal air apparent. The osseous structures demonstrate no concerning lytic or blastic lesions. IMPRESSION: 1. Limited study due to lack of intrinsic contrast due to anasarca and lack of IV contrast. 2. Free intraperitoneal fluid, some of which appears loculated within the pelvis and right subh epatic region. Correlate with concerns for peritonitis. 3. Conspicuous patchy consolidation and ground glass opacity involving the visualized lung bases with small bilateral pleural effusions. Findings could reflect pneumonia and/or edema. POS: RAEGAN
[2020-05-20] MEDS ORDERED: hydrALAZINE 20 MG/ML VIAL SLOW IVP PRN (20:52)
[2020-05-20] MEDS ORDERED: cloNIDine 0.1 MG TAB PO PRN (20:52)
[2020-05-20] MEDS ORDERED: Ondansetron PF 4 MG/2 ML Vial IVP PRN (20:52)
[2020-05-20] MEDS ORDERED: Guaifenesin DM 100-10/5 ML UDCUP PO PRN (20:52)
[2020-05-20] MEDS ORDERED: Labetalol HCl 100 MG/20 ML VIAL SLOW IVP PRN (20:52)
--- NOTE | 2020-05-20 20:53 | PDOC.HHP ---
Hospitalist HPI - History of Present Illness nausea, vomiting History of Present Illness: Patient is a 75 year old female with PMH CAD, CHF, GERD, HLD, ESRD, HD MWF, HTN , chronic respiratory failure on 2L O2 who presents to ED for nausea, vomiting, malaise x 1 day. Patient was recently admitted for possible NSTEMI and discharged a few days ago, denies chest pain or shortness of breath, reports vague abdominal pain earlier today and nonbilious nonbloody vomiting and multiple episodes of loose nonbloody diarrhea. Denies fever, dysuria. 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 Patient states she has not missed dialysis recently. In ED, tmax 100.2, RR 24, lactic acid 5.5, TnI 0.25, cXR w/ cardiomegaly, bilateral lung consolidations. CT chest prelim read w/ fluid collection, Dr Schmidt consulted, patient to be admitted for further workup. Hospitalist ROS - Review of Systems Constitutional: denies: fever, chills, sweats, weakness, malaise, other Eyes: denies: pain, vision change, conjunctivae inflammation, eyelid inflammation, redness, other ENT: denies: ear pain, ear discharge, nose pain, nose discharge, nose congestion , mouth pain, mouth swelling, throat pain, throat swelling, other Respiratory: denies: cough, dry, shortness of breath, hemoptysis, SOB with excertion, pleuritic pain, sputum, wheezing, other Gastrointestinal: reports: nausea, vomiting, abdominal pain, diarrhea. denies: constipation, melena, hematochezia, other Genitourinary: denies: dysuria, frequency, incontinence, hematuria, retention, other Musculoskeletal: denies: neck pain, shoulder pain, arm pain, back pain, hand pain, leg pain, foot pain, other Skin: denies: rash, lesions, ryder, bruising, other Neurological: denies: weakness, numbness, incoordination, change in speech, confusion, seizures, other All other systems reviewed; all pertinent +/- noted in HPI/Subj - Medication Medications: losartan TABLET : Strength - 100 mg : ORAL Patient Dose: 100 mg Oral once a day. calcitriol oral capsule : Strength - 0.25 mcg : ORAL Patient Dose: 3 tab(s) Oral once a day. hydrOXYzine HCl oral tablet : Strength - 25 mg : ORAL Patient Dose: 25 mg Oral 2 times a day. Vitamin D3 capsule : Strength - 2,000 unit : ORAL Patient Dose: 1 tab(s) Oral once a day. triamcinolone acetonide topical lotion : Strength - 0.1 % : TOPICAL Patient Dose: unk. cloNIDine HCl tablet : Strength - 0.2 mg : ORAL Patient Dose: 1 tab(s) Oral 2 times a day. hydrALAZINE oral tablet : Strength - 25 mg : ORAL Patient Dose: 1 tab(s) Oral 3 times a day. ondansetron tablet,disintegrating : Strength - 4 mg : ORAL Patient Dose: 1 tab(s) Oral 3 times a day. carvedilol tablet : Strength - 12.5 mg : ORAL Patient Dose: 1 tab(s) Oral 2 times a day.3.125 mg 2 times a day (in addition). mirtazapine tablet : Strength - 15 mg : ORAL Patient Dose: 1 tab(s) Oral once a day (at bedtime). levothyroxine oral tablet : Strength - 25 mcg : ORAL Patient Dose: 1 tab(s) Oral once a day (in the morning). hyoscyamine tablet : Strength - 0.15 mg : ORAL Patient Dose: 1 tab(s) Sublingual every 4 hours prn. Hospitalist History - Past Medical History Other Medical History: CAD, CHF, GERD, HLD, ESRD, HD MWF, HTN, chronic respiratory failure on 2L O2 - Past Surgical History Other Surgical History: QUADRIPLE BYPASS SX, 50% OF STOMACH REMOVED BECAUSE PT HAS POLYPS., Surgical history of appendectomy, Surgical history of cholecystectomy, fistula right upper arm. - Family History Family History: reports: no pertinent history - Social History Alcohol: reports: None Drugs: reports: none - Exam General Appearance: NAD, awake alert Eye: PERRL, anicteric sclera ENT: normocephalic atraumatic, no oropharyngeal lesions, moist mucosa Neck: supple, symmetric, no JVD, no thyromegaly, no lymphadenopathy, no carotid bruit Heart: RRR, no murmur, no gallops, no rubs, normal peripheral pulses Respiratory: CTAB, no wheezes, no rales, no ronchi, normal chest expansion, no tachypnea, normal percussion Gastrointestinal: soft, non-distended, normal bowel sounds, no palpable masses, no hepatomegaly, no splenomegaly, no bruit Gastrointestinal - other findings: diffuse tenderness no guarding or rebound Extremities: no cyanosis, no clubbing, no edema Skin: normal turgor, no lesions, no rashes Neurological: cranial nerve grossly intact, normal sensation to touch, no weakness, no focal deficits, no new deficit Musculoskeletal: normal tone, normal strength, no muscle wasting Psychiatric: normal affect, normal behavior, A&O x 3 Hospitalist Results - Labs Result Diagrams: 05/20/20 17:26 05/20/20 17:26 Lab results: WBC 7.8 thou/uL (4.8-10.8) 05/20/20 17:26 Hgb 12.5 g/dL (12.0-16.0) 05/20/20 17:26 Hct 39.5 % (36.0-47.0) 05/20/20 17:26 MCV 101.0 fL (78.0-98.0) H 05/20/20 17:26 Plt Count 79 thou/uL (130-400) L 05/20/20 17:26 Band Neuts % (Manual) 15 % (5-11) H 05/20/20 17:26 Sodium 136 mmol/L (136-145) 05/20/20 17:26 Potassium 4.2 mmol/L (3.5-5.1) 05/20/20 17:26 Chloride 97 mmol/L (98-107) L 05/20/20 17:26 Carbon Dioxide 24 mmol/L (23-31) 05/20/20 17:26 BUN 31 mg/dL (9.8-20.1) H 05/20/20 17:26 Creatinine 4.09 mg/dL (0.6-1.1) H 05/20/20 17:26 Glucose 72 mg/dL (83-110) L 05/20/20 17:26 Lactic Acid 2.7 mmol/L (0.5-2.2) H 05/20/20 19:52 Calcium 8.7 mg/dL (7.8-10.44) 05/20/20 17:26 Total Bilirubin 3.0 mg/dL (0.2-1.2) H 05/20/20 17:26 AST 18 U/L (5-34) 05/20/20 17:26 ALT 8 U/L (8-55) 05/20/20 17:26 Alkaline Phosphatase 83 U/L (40-110) 05/20/20 17:26 CK-MB (CK-2) 1.0 ng/mL (0-6.6) 05/20/20 17:26 Troponin I 0.250 ng/mL (< 0.028) H 05/20/20 17:26 B-Natriuretic Peptide 3766.1 pg/mL (0-100) H 05/20/20 17:26 Serum Total Protein 6.9 g/dL (6.0-8.3) 05/20/20 17:26 Albumin 3.4 g/dL (3.4-4.8) 05/20/20 17:26 Additional comment: VITAL SIGNS Sat May 20, 2020 16:42 KULWANT Giron Jeffery BP: 109/63 Pulse: 77 Resp: 24 Temp: 100.2 (Oral) Pain: 0 O2 sat: 0 Time: 05/20/2020 16:42. labs, imaging reports reviewed Hospitalist H&P A/P - Plan Plan: Patient is a 75 year old female with PMH CAD, CHF, GERD, HLD, ESRD, HD MWF, HTN , chronic respiratory failure on 2L O2 who presents to ED for nausea, vomiting, malaise x 1 day. # loculated abdominal fluid collection # severe sepsis - admit to floor - continue broad spectrum abx - appreciate general surgery assistance - recheck lactic improved, continue to trend - follow up cultures # elevated troponin - perhaps due to sepsis and hypotension before arrival, trend troponin and consider cardiology consult if indicated # ESRD - nephrology consult # CAD # HTN # HLD - continue home meds DVT/GI ppx
[2020-05-20 21:02] LABS: Troponin I 0.555 ng/mL (< 0.028)
[2020-05-20] MEDS ORDERED: Vancomycin 1 GM in Premix Bag 1 BAG IVPB SCH ×3 (21:34→23:00)
--- NOTE | 2020-05-20 21:44 | CT ---
CT ABDOMEN AND PELVIS WITH IV CONTRAST: 05/20/20 PROVIDED CLINICAL HISTORY: Abdominal pain. FINDINGS: Comparison is made with the examination performed earlier same date. The addition of IV contrast mat erial confirms loculated fluid collections within the right subhepatic region and pelvic cul-de-sac. There is a uniform mildly thickened rim about each of these fluid collections. There is evidence for additional areas of peritoneal enhancement. The addition of IV contrast material reveals no abnormal ity of the solid abdominal organs not previously described. IMPRESSION: 1. Enhancement to the peritoneum with localized collections of fluid in the pelvis and right sub hepatic region. Findings are concerning for peritonitis. 2. Other findings as previously discussed. POS: RAEGAN
[2020-05-20] MEDS ORDERED: Vancomycin Sliding Scale 1 EACH FS ONE (23:00)
[2020-05-20] MEDS ORDERED: HOLD VANCOMYCIN FOR LEVEL >20 FS SCH (23:00)
[2020-05-20] MEDS ORDERED: Vancomycin HCl 500 MG in Sodium Chloride 0.9% 100 ML IVPB SCH (23:00)
[2020-05-20] MEDS ORDERED: Vancomycin HCl 750 MG in Sodium Chloride 0.9% 250 ML 250 ML IVPB SCH (23:00)
[2020-05-20] MEDS ORDERED: Vancomycin HCl 250 MG in Sodium Chloride 0.9% 100 ML IVPB SCH (23:00)
[2020-05-21 00:39] LABS: Troponin I 1.099 ng/mL (< 0.028)
[2020-05-21 04:10] LABS: Anion Gap 19 mmol/L (10-20); BUN (Urea Nitrogen) 35 mg/dL (9.8-20.1); Calc. Creatinine Clearance 9 mL/min (70-130); Calcium 8.1 mg/dL (7.8-10.44); Carbon Dioxide 21 mmol/L (23-31); Chloride 100 mmol/L (98-107); Estimated GFR-MDRD 10; Glucose 88 mg/dL (83-110); Magnesium 1.9 mg/dL (1.6-2.6); Phosphorus 4.9 mg/dL (2.3-4.7); Potassium 4.5 mmol/L (3.5-5.1); Sodium 135 mmol/L (136-145)
[2020-05-21 04:27] LABS: Free T4 (Free Thyroxine) 0.79 ng/dL (0.70-1.48); Thyroid Stimulating Hormone 4.632 uIU/mL (0.35-4.94)
[2020-05-21 04:40] LABS: CKMB 4.5 ng/mL (0-6.6)
[2020-05-21 04:56] LABS: MDiff Complete? YES; Mean Corpuscular Hemoglobin 32.6 pg (27.0-31.0); Mean Platelet Volume 10.2 fL (7.4-10.4); Platelet Count 63 thou/uL (130-400); RBC Distribution Width 15.4 % (11.5-14.5); Red Blood Cell (RBC) Count 3.37 mill/uL (4.20-5.40); White Blood Cell (WBC) Count 8.9 thou/uL (4.8-10.8)
[2020-05-21 04:57] LABS: Anisocytosis SLIGHT = 6-15 cells (100X) (0-5/hpf); Band 25 % (5-11); Lymphocytes 7 % (21-51); Monocytes 1 % (0-10); Neutrophil 67 % (42-75); Platelet Morphology Comment Appears Decreased
[2020-05-21] MEDS ORDERED: Heparin 25,000 units/D5W 500 ML IVPB SCH (05:45)
[2020-05-21] MEDS ORDERED: Aspirin 325 MG TAB PO SCH (05:45)
[2020-05-21] MEDS: Levothyroxine Sodium 25 MCG TAB PO SCH (06:15)
[2020-05-21 07:02] LABS: Hemoglobin 11.7 g/dL (12.0-16.0); Platelet Count 57 thou/uL (130-400)
[2020-05-21] MEDS: Polyethylene Glycol 3350 17 GM Packet PO SCH (08:33)
[2020-05-21] MEDS: Aspirin 81 mg Enteric Coated Tablet PO SCH (09:03)
[2020-05-21] MEDS: Heparin 10,000 UNITS/ 10 ML VIAL SLOW IVP SCH ×3 (09:04→22:33)
[2020-05-21] MEDS: Sevelamer Carbonate 800 MG TAB PO SCH ×3 (09:04→20:37)
--- NOTE | 2020-05-21 11:58 | PRG ---
DATE OF SERVICE: 05/21/2020 SUBJECTIVE: Ms. Augustine is a 75-year-old female with ESRD and was admitted for complaints of nausea, vomiting, and feeling unwell. Of note, she was recently admitted for nonspecific complaints of nausea and vomiting. During the initial workup, she was found to have a gram-negative lisha bacteremia. Influenza type A and B have been negative. In addition, an imaging of the abdomen was done - CT scan of the abdomen and pelvis, which showed localized collection of fluid in the pelvis and right subhepatic regions. The concern was that this may be consistent with peritonitis. However, the patient does not complain of overt abdominal pain. We are being consulted for her maintenance hemodialysis and management of her ESRD. OBJECTIVE: VITAL SIGNS: Blood pressure is noted at 147/57, with heart rate of 66, respiratory rate 13, temperature 97.2. GENERAL: The patient is awake, supine, comfortable, not in overt distress. SKIN: Adequate turgor. HEENT: Pinkish conjunctivae. Anicteric sclerae. NECK: No neck mass. No carotid bruits. No JVD. CHEST: No deformities. LUNGS: Decreased breath sounds. HEART: Normal sinus rhythm, grade 2/6 systolic murmur. No gallops. No rubs. ABDOMEN: Globular, soft, nontender. EXTREMITIES: Positive for edema. MEDICATIONS: Of May 21, 2020, were reviewed. LABORATORY DATA: Of May 21, 2020: White count 8.9, hemoglobin is 11. Sodium 135, potassium 4.5, chloride 100, carbon dioxide 21, BUN 35, creatinine 4.13, glucose 80, phosphorus 4.9. Troponin-I is 1.9. ASSESSMENT AND PLAN: 1. Subhepatic abscess - possibility of an infectious etiology remains due to the gram-negative bacteremia. Currently, on empiric IV antibiotics - cefepime and meropenem. I would probably consider doing urinalysis with a straight cath with this patient. 2. End-stage renal disease, stable. No indication for any emergent hemodialysis. I have scheduled her for regular Friday, Friday, and Friday hemodialysis tomorrow. 3. Elevated troponin-I, being ruled out for myocardial infarction. Cardiology is to be consulted. 4. Right heart failure - the patient has underlying valvular heart disease - has a moderate to severe tricuspid regurgitation. Maxing out fluid removal with dialysis. Job ID: [id number]
[2020-05-21] MEDS ORDERED: SODIUM CHLORIDE IVPB SCH (12:00)
[2020-05-21] MEDS ORDERED: CEFEPIME IVPB SCH (12:00)
[2020-05-21] MEDS ORDERED: ADMIXTURE FEE IVPB SCH (12:00)
--- NOTE | 2020-05-21 12:15 | CON ---
DATE OF CONSULTATION: 05/21/2020 REASON FOR CONSULTATION: Positive troponins. PRIMARY BUTCHER FISH: Amy Ronquillo MD HISTORY OF PRESENT ILLNESS: Ms. Augustine is a very pleasant 75-year-old female, who comes to the hospital for nausea, vomiting, diarrhea, and general malaise. She was admitted and diagnosed with septic-like picture, and her blood cultures have already been positive for gram-negative rods. She is getting IV antibiotics and is already feeling better. She denies any chest pain, tightness, or pressure. No shortness of breath. During her initial evaluation, she had her troponins checked, and they were positive, so Cardiology has been consulted for this. PAST MEDICAL HISTORY: 1. End-stage renal disease, on hemodialysis. 2. Coronary artery disease with bypass grafting in 2001. 3. Most recent heart catheterization was in January 2012, showed a 40% left main, 90% prox LAD, occluded mid LAD, 50% OM-1, and occluded right. RUEDA to the LAD was patent, but diffusely diseased vessel distally. Patent graft to the RPDA and an occluded circumflex graft. Medical therapy was advised. 4. Paroxysmal atrial fibrillation. 5. History of GI bleeding precluding any further full anticoagulation for stroke prophylaxis. 6. End-stage renal disease, on hemodialysis. 7. Hypertension. OUTPATIENT MEDICATIONS: 1. Aspirin 81. 2. Calcitriol 0.25 mcg a day. 3. Vitamin D3. 4. Catapres 0.2 mg b.i.d. p.r.n. 5. Hydralazine t.i.d. 6. Hydroxyzine 25 mg b.i.d. 7. Levothyroxine 25 mcg a day. 8. Losartan 100 mg a day. 9. Mirtazapine. 10. Renvela. ALLERGIES: 1. IODINE GIVES HER A RASH. 2. MINOXIDIL. 3. MORPHINE. 4. PENICILLIN. 5. PHENERGAN. 6. BENADRYL. SURGICAL HISTORY: 1. CABG in 2012 x3. 2. Resection of portion of her stomach due to polyps. 3. Appendectomy. 4. Cholecystectomy. 5. Right arm fistula. SOCIAL HISTORY: No alcohol, tobacco, or drugs. FAMILY HISTORY: Noncontributory. REVIEW OF SYSTEMS: A 12-point review of systems was done and was found to be negative other than stated in the history of present illness, PHYSICAL EXAMINATION: VITAL SIGNS: Temperature 97.2, pulse 63, respiratory rate 16, saturating 98% on 2 L, and blood pressure 102/43, better now at 147/57. GENERAL: Awake, alert, and oriented x3, in no distress. HEENT: Normocephalic and atraumatic. NECK: Supple. LUNGS: Clear. CARDIOVASCULAR: S1 and S2. No S3 or S4. No murmurs. ABDOMEN: Soft. Positive bowel sounds. EXTREMITIES: No edema. SKIN: Warm and dry. LABORATORY DATA: Laboratory work was reviewed. CBC with a white count of 8, hemoglobin of 11, hematocrit of 34, and platelet count of 63. PTT was elevated. Chemistry was unremarkable except for BUN and creatinine that are high. GFR of 10. Lactic acid was 3. Phosphorus 4.9. Troponin was 0.2, then 0.5, then 1.0, then 1.9. Free T4 and TSH were both normal. EKG was normal. Blood cultures preliminary showed gram-negative rods. Most recent echocardiogram was done just a week ago, showed an EF of 45% to 50%, moderate to severe TR, moderate PI, sclerotic aortic valve, and mitral annular calcification with mild MR. ASSESSMENT AND PLAN: 1. Type 2 World Health Organization type of myocardial infarction, demand ischemia. 2. Gram-negative lisha bacteremia/sepsis. 3. End-stage renal disease, on hemodialysis. 4. Coronary artery disease. 5. Paroxysmal atrial fibrillation. PLAN: 1. Continue medical therapy. 2. She has had a history of GI bleeding in the past. We would recommend just 48 hours of anticoagulation, which can definitely be stopped at any point if surgery is needed. More than likely her troponin leak is related to right-sided elevated pressures and not so much for an intracoronary event. Hopefully, she will not go into atrial fibrillation. 3. We would get a repeat echocardiogram to make sure there is no big change from the one that was done last week. Thank you for letting us to participate in the care of your patient. Dr. Ronquillo, her primary mortgage lender, will follow up in the morning. Job ID: [id number]
[2020-05-21] MEDS ORDERED: Cefepime 0.5 GM in Sodium Chloride 0.9% 100 ML IVPB ONE (12:33)
--- NOTE | 2020-05-21 18:39 | CON ---
DATE OF CONSULTATION: HISTORY OF PRESENT ILLNESS: Radha Augustine is a 75-year-old female with multiple medical problems. She, unfortunately, presented last night with nausea, vomiting, abdominal pain. She was just recently discharged from the hospital. CT of abdomen shows large collection of fluid, probably some indication of peritonitis. General Surgery was consulted. I am told she may undergo an intervention in the next day or 2. She denies difficulty breathing, coughing, or wheezing. PAST MEDICAL HISTORY: Recent diagnosis of [id number] myocardial infarction, history of end-stage renal disease, history of coronary artery disease, history of diabetes, severe deconditioning. HOME MEDICATIONS: Include: 1. Catapres 0.2. 2. Losartan 100. 3. Hydralazine. 4. Mirtazapine 15. 5. Synthroid 25. 6. Aspirin. ALLERGIES: IODINE, MINOXIDIL, MORPHINE, AND PENICILLIN. PAST SURGICAL HISTORY: Otherwise included multiple. Previous bypass surgery, previous endoscopy, previous multiple accesses, previous carotid surgery. REVIEW OF SYSTEMS: Otherwise, negative. SOCIAL HISTORY: No alcohol, tobacco abuse. PHYSICAL EXAMINATION: VITAL SIGNS: Sats are 96% on room air, pulse 80, blood pressure . CHEST: Crackles without any wheezing. CARDIAC: Normal S1, S2. No gallops. ABDOMEN: No masses. LABORATORY DATA: White count 8000, 67 segs, 25 bands, H and H are 11 and 30, platelet count is 63, low, thrombocytic. Creatinine 4.3. Troponin negative. Gram-negative rods in the blood. ASSESSMENT: Abdominal sepsis, chronic renal failure, diabetes, advanced age. PLAN: Pulmonary is going to follow while she is in the MICU. Nothing additional to offer. She will undergo surgical intervention. We will try to get off the respirator as soon as possible. I have added meropenem for abdominal sepsis purposes. Consultation note, 70 minutes, 50% direct patient care. Job ID: [id number]
--- NOTE | 2020-05-21 18:45 | PDOC.HOSPP ---
- Subjective Encounter Date: 05/21/20 Encounter Time: 10:10 Subjective: No acute issues from pt. No longer with N/V. Denies abd pain - Objective Vital Signs & Weight: Vital Signs (12 hours) Temp Pulse Ox 05/21/20 15:19 97.4 F L 05/21/20 11:13 97.2 F L 05/21/20 08:00 98 05/21/20 07:12 97.4 F L Weight Weight 110 lb 9 oz Most Recent Monitor Data Heart Rate from ECG 67 NIBP 126/74 NIBP BP-Mean 91 Respiration from ECG 18 SpO2 81 I&O: 05/20/20 05/21/20 05/22/20 06:59 06:59 06:59 Intake Total 1000 Balance 1000 Result Diagrams: 05/21/20 06:15 05/21/20 03:13 Additional Labs: Accuchecks 05/21/20 01:21 POC Glucose 101 Hospitalist ROS - Review of Systems Constitutional: denies: fever, chills, sweats, weakness, malaise, other Eyes: denies: pain, vision change, conjunctivae inflammation, eyelid inflammation, redness, other ENT: denies: ear pain, ear discharge, nose pain, nose discharge, nose congestion , mouth pain, mouth swelling, throat pain, throat swelling, other Respiratory: denies: cough, dry, shortness of breath, hemoptysis, SOB with excertion, pleuritic pain, sputum, wheezing, other Cardiovascular: denies: chest pain, palpitations, orthopnea, paroxysmal noc. dyspnea, edema, light headedness, other Gastrointestinal: denies: nausea, vomiting, abdominal pain, diarrhea, constipation, melena, hematochezia, other Genitourinary: denies: dysuria, frequency, incontinence, hematuria, retention, other Musculoskeletal: denies: neck pain, shoulder pain, arm pain, back pain, hand pain, leg pain, foot pain, other Skin: denies: rash, lesions, ryder, bruising, other Neurological: denies: weakness, numbness, incoordination, change in speech, confusion, seizures, other - Medication Medications: Active Medications Generic Name Dose Route Start Last Admin Trade Name Freq PRN Reason Stop Dose Admin Aspirin 81 mg 05/21/20 09:00 05/21/20 09:03 Ecotrin PO 81 mg DAILY [place] Administration Heparin Sodium (Porcine) 0 units 05/21/20 05:45 05/21/20 17:46 Heparin 1,000 Units/Ml (10 Ml) SLOW IVP 1,500 units ASDIR [place] Administration Protocol Cefepime HCl 500 gm/ 100 mls @ 200 mls/hr 05/21/20 12:00 05/21/20 12:33 Miscellaneous Medication 1 IVPB 100 mls each/ Sodium Chloride 1200 [place] Administration Heparin Sodium/Dextrose 500 mls @ 0 mls/hr 05/21/20 05:45 05/21/20 09:06 Heparin 25,000 Units/D5w IVPB 500 mls INF [place] Administration Protocol Per Protocol Levothyroxine Sodium 25 mcg 05/21/20 06:00 05/21/20 06:15 Synthroid PO 25 mcg 0600 [place] Administration Ondansetron HCl 4 mg 05/20/20 20:52 05/21/20 01:02 Zofran IVP 4 mg Q6H PRN Administration Nausea/Vomiting, use 1st Pantoprazole Sodium 40 mg 05/21/20 09:00 05/21/20 09:04 Protonix PO 40 mg DAILY [place] Administration Polyethylene Glycol 17 gm 05/21/20 09:00 05/21/20 08:33 Miralax PO Not Given DAILY [place] Sevelamer Carbonate 2,400 mg 05/21/20 09:00 05/21/20 12:27 Renvela PO Not Given TID [place] - Exam General Appearance: awake alert General - other findings: Chr ill looking Eye: PERRL, anicteric sclera ENT: normocephalic atraumatic, no oropharyngeal lesions Neck: supple, symmetric, no JVD Heart: RRR, no murmur, no gallops, no rubs Respiratory: CTAB, no wheezes, no rales Gastrointestinal: soft, non-tender, non-distended, normal bowel sounds Extremities: no clubbing, no edema Skin: normal turgor, no lesions, no rashes Neurological: cranial nerve grossly intact, no focal deficits Musculoskeletal: normal tone, normal strength, no muscle wasting Psychiatric: normal affect, A&O x 3 Hosp A/P (1) Bacteremia Code(s): R78.81 - BACTEREMIA Status: Acute Plan: Pt's blood cx are positive for GNR. Will cont current abx, follow with cx results. (2) Abdominal fluid collection Code(s): R18.8 - OTHER ASCITES Status: Acute Plan: Unclear etiology. Gen Sx is on board and will plan for evacuation possible via IR of fluid. Will f/u with Sx recs. (3) Abnormal cardiac enzyme level Code(s): R74.8 - ABNORMAL LEVELS OF OTHER SERUM ENZYMES Status: Acute Plan: Elevated troponins. Seen by cardiology and felt to be a troponin leak. Echo has been ordered. Will f/u with results. Cont heparin gtt for 48 hrs per cardiac recs (4) GI bleed Code(s): K92.2 - GASTROINTESTINAL HEMORRHAGE, UNSPECIFIED Status: Acute Plan: No acute bleed noted now. Cont PPI. (5) PAF (paroxysmal atrial fibrillation) Code(s): I48.0 - PAROXYSMAL ATRIAL FIBRILLATION Status: Acute Plan: Rate controlled, cont med mgt. (6) CAD (coronary artery disease) Code(s): I25.10 - ATHSCL HEART DISEASE OF [place] CORONARY ARTERY W/O ANG PCTRS Status: Chronic Qualifiers: Coronary Disease-Associated Artery/Lesion type: [place] artery [place] vs. transplanted heart: [place] heart Associated angina: without angina Qualified Code(s): I25.10 - Atherosclerotic heart disease of [place] coronary artery without angina pectoris Plan: Stable. Cont med mgt (7) ESRD (end stage renal disease) on dialysis Code(s): N18.6 - END STAGE RENAL DISEASE; Z99.2 - DEPENDENCE ON RENAL DIALYSIS Status: Chronic Plan: Will get HD per her HD schedule. F/u with Renal recs. (8) Hypertension Code(s): I10 - ESSENTIAL (PRIMARY) HYPERTENSION Status: Chronic Qualifiers: Hypertension type: essential hypertension Qualified Code(s): I10 - Essential (primary) hypertension Plan: Controlled. Cont BP meds - Plan plan discussed w/ family, continue antibiotics, DVT proph w/SCDs PPx: Heparin and PPI. CODE: FULL. Dispo: Cont current mgt, Daughter and pt updated on plan of care.
[2020-05-21] MEDS: Meropenem 500 MG in Sodium Chloride 0.9% 100 ML IVPB SCH (20:36)
[2020-05-21] MEDS: Mirtazapine 15 MG Soltab PO SCH (20:37)
--- NOTE | 2020-05-22 03:13 | CON ---
DATE OF CONSULTATION: REASON FOR CONSULTATION: Intraabdominal fluid collections. HISTORY OF PRESENT ILLNESS: Ms. Augustine is a 75-year-old woman with multiple medical issues, who came to the emergency room with nausea and vomiting and malaise for 1 day's time. She denies any abdominal pain, but states that she has been feeling weak and ill. She has not had any high fevers or any chills and states that the emesis was nonbloody and non coffee-ground in appearance. She did have some diarrhea as well, not a large amount. There has been no blood in her stool and no melena. She is on chronic dialysis and has been undergoing dialysis without any issues. She did fall a couple of weeks ago, but did not have any noticeable injuries. In the emergency room, she was noted to have a low-grade fever and a lactic acidosis and some mild abdominal tenderness, so she underwent a CT scan without contrast due to an iodine allergy. She was found to have two large fluid collections, one subhepatic and one in her pelvis, but the source was unclear. I asked the ER doctor to repeat the CT scan with IV and p.o. contrast after premedication, and this did not show any evidence of communication with the bowel or any solid organ injury. The patient currently states she has no nausea and no abdominal pain. She is oxygen dependent, but states that her shortness of breath is at its baseline. PAST MEDICAL HISTORY: End-stage renal failure, on dialysis, hypertension, coronary artery disease, status post bypass and stenting, chronic heart failure, hyperlipidemia, chronic respiratory failure, on home oxygen for two years. Her eligibility and occupancy interviewer is Dr. España and her canvas goods fabricator is Dr. Castelan. 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 She states that recently underwent a percutaneous procedure by Dr. Isaac because it was starting to fail. FAMILY HISTORY: Noncontributory. SOCIAL HISTORY: The patient does not smoke, drink, or use illicit drugs. She states that her daughter is the person to contact. REVIEW OF SYSTEMS: Ten system review of systems is negative except per HPI. PHYSICAL EXAMINATION: VITAL SIGNS: The patient has had a low-grade fever in the emergency room, which has since resolved. Heart rate in the 60s. Blood pressure normal. O2 sats on 2 L nasal cannula in the low 90s. GENERAL: Reveals a frail, elderly woman, in no acute distress. She is not jaundiced or icteric. She is not flushed or toxic in appearance. She is not diaphoretic. HEENT: Unremarkable. Pupils are equal. Extraocular movements are intact and facial movements are symmetric. NECK: Supple without lymphadenopathy or thyroid nodules. HEART: Regular, but has a loud systolic murmur audible over the entire precordium. The patient has crackles and wheezes diffusely on both sides, but no signs of consolidation. ABDOMEN: Soft and nondistended. She does have some mild tenderness to deep palpation in the right abdomen, but no rigidity, rebound, or guarding. No palpable masses or hernias. Multiple healed surgical incisions. EXTREMITIES: Warm and well perfused without edema. Her AV graft in the right upper arm has a good thrill. NEUROLOGIC: No focal deficits. PSYCHIATRIC: Alert, oriented, and appropriate with a normal affect. LABORATORY DATA: White count is normal, although she normally runs low. Hematocrit is 34 after hydration and platelets are 63, down somewhat from her baseline. Electrolytes are unremarkable. Sodium is slightly low at 135, and BUN and creatinine are elevated at 35 and 4.13 consistent with her history of chronic end-stage renal failure. Phosphorus is high at 4.9 and lactate is slightly high at 3. Troponins are elevated as well, going up from indeterminate 0.25 on admission to 1.93 this morning. IMAGING DATA: CT images are reviewed and I agree with the written report. ASSESSMENT AND PLAN: The patient with malaise and nausea and two loculated fluid collections in the abdomen. The etiology of these fluid collections is not entirely clear. She did have a fall 2 weeks ago, but no obvious intraabdominal injuries at that time. It is possible that she had some intraabdominal bleeding, developed a hematoma, which has become infected. There does not appear to be any enteric communication and there is no gas in the fluid collection, does not report an enteric etiology. She has a very abnormal looking lungs on the portions of her lungs, which were visualized on CT, which could be another cause of malaise. I do think the fluid collections are potentially infected as there is some rim enhancement, but the patient is not acutely septic and she does have elevated troponins. When I saw her this morning, coags had been ordered and the plan was to place her on a heparin drip. I do not think it is urgent to drain the fluid collections until we have a better idea of her cardiac status. I think she can be suppressed with antibiotics. She is extremely high risk for surgery. I do not think that laparoscopic surgery would be possible as the patient has had multiple abdominal surgeries and likely has adhesions, which have contributed to the loculation of these fluid collections. Both of these fluid collections appear to me to be percutaneously accessible. The subhepatic fluid collection should be approachable from the lateral abdomen. There is a very narrow window to approach the pelvic fluid collection anteriorly, but a posterior approach could be attempted. I am going to discuss the patient with Interventional Radiology and try to get her on the schedule for Friday or Friday, depending on what is decided regarding her heparin drip. I have discussed her case with the hospitalist and will coordinate care with them and the eligibility and occupancy interviewer. Pulmonology has been consulted to see her as well, but had not been by when I saw her this morning. She appears to be relatively stable from a pulmonary standpoint symptomatically, although her lung exam is grossly abnormal. She is on broad-spectrum antibiotics including cefepime, vancomycin, and meropenem, and I will continue to follow her. However, as I previously stated, she is a very poor surgical candidate. I am concerned that it will be difficult to extubate her, especially if she required a laparotomy, which would likely be the only way to successfully drain the fluid collections surgically. Hopefully, she can be managed with percutaneous drainage and antibiotics. Job ID: [id number]
[2020-05-22 04:58] LABS: INR-International Normal Ratio 2.2; Prothrombin Time 24.1 sec (12.0-14.7)
[2020-05-22 04:59] LABS: PTT 45.2 sec (22.9-36.1)
[2020-05-22] MEDS: Heparin 10,000 UNITS/ 10 ML VIAL SLOW IVP SCH (05:12)
[2020-05-22] MEDS: Levothyroxine Sodium 25 MCG TAB PO SCH (05:13)
[2020-05-22 06:41] LABS: Hemoglobin 11.5 g/dL (12.0-16.0); Mean Corpuscular HGB CONC 31.6 g/dL (32.0-36.0); Mean Corpuscular Hemoglobin 31.9 pg (27.0-31.0); Mean Platelet Volume 10.5 fL (7.4-10.4); Platelet Count 96 thou/uL (130-400); RBC Distribution Width 15.7 % (11.5-14.5); Red Blood Cell (RBC) Count 3.62 mill/uL (4.20-5.40); White Blood Cell (WBC) Count 11.5 thou/uL (4.8-10.8)
[2020-05-22 07:10] LABS: Anion Gap 20 mmol/L (10-20); BUN (Urea Nitrogen) 49 mg/dL (9.8-20.1); Calc. Creatinine Clearance 8 mL/min (70-130); Calcium 7.7 mg/dL (7.8-10.44); Carbon Dioxide 20 mmol/L (23-31); Chloride 98 mmol/L (98-107); Estimated GFR-MDRD 9; Glucose 209 mg/dL (83-110); Magnesium 1.9 mg/dL (1.6-2.6); Phosphorus 6.6 mg/dL (2.3-4.7); Potassium 4.8 mmol/L (3.5-5.1); Sodium 133 mmol/L (136-145)
[2020-05-22 07:11] LABS: Troponin I 3.054 ng/mL (< 0.028)
[2020-05-22 07:18] LABS: Band 16 % (5-11); Lymphocytes 2 % (21-51); MDiff Complete? YES; Monocytes 9 % (0-10); Neutrophil 72 % (42-75); Platelet Morphology Comment Appears Decreased; Polychromasia SLIGHT = 2-3 cells (100X) (0-2/hpf)
[2020-05-22] MEDS: Polyethylene Glycol 3350 17 GM Packet PO SCH ×2 (08:33→10:03)
[2020-05-22 09:17] LABS: Vancomycin, Trough 10.6 ug/mL
--- NOTE | 2020-05-22 09:24 | PRG ---
DATE OF SERVICE: 05/22/2020 SUBJECTIVE: Ms. Augustine still feels weak and fatigued. She is not having any chest pain, not short of breath, not having abdominal pain. OBJECTIVE: VITAL SIGNS: Her blood pressure is 154/62, pulse is in the 70s. LUNGS: Clear. CARDIAC: Normal S1. Normal S2. ABDOMEN: Soft, nontender. EXTREMITIES: No edema. PERTINENT LABORATORY DATA: The platelet count is low at 96,000. Peak troponin 3.054. Creatinine 4.9. ASSESSMENT: 1. Abdominal discomfort of uncertain etiology. 2. End-stage renal disease. 3. Non-ST elevation myocardial infarction. 4. Catheterization in 2011 revealed three-vessel disease, occluded left anterior descending with patent internal mammary artery with distal disease in the left anterior descending, occluded graft to the circumflex with heavily calcified vessel not feasible to intervene. 5. Right coronary occluded with a patent radial graft with distal disease. Medical therapy is the only option. 6. She has congestive heart failure, chronic, systolic and diastolic, mixed. PLAN: 1. There is some consideration for percutaneous drainage of the fluid in her abdomen. 2. It would be okay to stop heparin. 3. Continue aspirin. The non-ST elevation infarction is likely demand ischemia. Job ID: [id number]
--- NOTE | 2020-05-22 09:30 | PRG ---
DATE OF SERVICE: 05/22/2020 SUBJECTIVE: Ms. Augustine is a 75-year-old female with ESRD and is followed up for her maintenance hemodialysis. She came in with generalized malaise. She was found to be positive for a gram-negative lisha and currently on IV antibiotics. She was also found to have localized intraabdominal fluid collection. At that time, consideration for aspiration of the fluid was considered. However, due to her very poor condition, she is currently on hold temporarily. We will attempt to remove what fluid we can with the dialysis. The patient voices no other complaints. She was told by Cardiology that she is not a candidate for anything invasive. She does have history of right heart failure. OBJECTIVE: VITAL SIGNS: Blood pressure is noted at 154/62, heart rate 72, respiratory rate 10, and O2 saturation 93%. GENERAL: The patient is awake, alert, and comfortable, not in distress. SKIN: Adequate turgor. HEENT: She has a pinkish conjunctivae. Anicteric sclerae. No neck mass. No carotid bruits. No JVD. CHEST: No deformities. LUNGS: Decreased breath sounds. HEART: Normal sinus rhythm. She does have grade 2/6 systolic murmur. No gallops. No rubs. ABDOMEN: Globular, soft, and nontender. No masses. EXTREMITIES: Trace edema. MEDICATIONS: Of May 22, 2020, reviewed. LABORATORY DATA: Laboratories of May 22, 2020; white count 11.5, hemoglobin 11.5. Sodium 133, potassium 4.8, chloride 98, carbon dioxide 20, BUN 49, creatinine 4.9, glucose 209, phosphorus 6.6, and calcium 7.7. Troponin I is 3.054. ASSESSMENT AND PLAN: 1. Elevated troponin I-conservative management. The patient is not a candidate for any invasive procedure. 2. Gram-negative lihsa bacteremia, currently on IV antibiotics. 3. End-stage renal disease. We will continue Friday, Friday, and Friday hemodialysis. Continue supportive care. Maxing out fluid removal with dialysis. Overall prognosis remains guarded. Job ID: [id number]
--- NOTE | 2020-05-22 09:47 | PRG ---
DATE OF SERVICE: 05/22/2020 SUBJECTIVE: She remains in the MICU with a temperature of 97, pulse 94, blood pressure 154/62, sats 96%. Denies difficulty breathing. No further nausea or vomiting. OBJECTIVE: CHEST: Decreased breath sounds. No wheezing. CARDIAC: Normal S1, S2. No gallops. ABDOMEN: Soft. LABORATORY DATA: INR is 2.2. Creatinine 4. Troponin slightly elevated. Blood culture, gram-negative lisha. White count 11,000. IMPRESSION: 1. Abdominal sepsis. 2. Renal failure. 3. Pleural effusion. 4. Congestive heart failure. 5. Coronary artery disease. PLAN: She is planned for interventional radiology to address the abdominal fluid. Pulmonary is going to follow while in the MICU. Continue present antibiotics. Job ID: [id number]
--- NOTE | 2020-05-22 09:48 | PDOC.HOSPP ---
- Subjective Encounter Date: 05/22/20 Encounter Time: 09:48 Subjective: alert,appropriate, no GI complaints - Objective Vital Signs & Weight: Vital Signs (12 hours) Temp Pulse Ox 05/22/20 08:00 94 L 05/22/20 07:54 97.9 F 05/22/20 03:42 97.2 F L 05/21/20 23:55 97.6 F Weight Weight 110 lb 9 oz Most Recent Monitor Data Heart Rate from ECG 72 NIBP 154/62 NIBP BP-Mean 92 Respiration from ECG 10 SpO2 93 I&O: 05/21/20 05/22/20 05/23/20 06:59 06:59 06:59 Intake Total 1000 480 Output Total 0 Balance 1000 480 Result Diagrams: 05/22/20 06:30 05/22/20 04:37 Hospitalist ROS - Medication Medications: Active Medications Generic Name Dose Route Start Last Admin Trade Name Freq PRN Reason Stop Dose Admin Aspirin 81 mg 05/21/20 09:00 05/21/20 09:03 Ecotrin PO 81 mg DAILY [place] Administration Meropenem 500 mg/ Sodium 100 mls @ 200 mls/hr 05/21/20 21:00 05/21/20 20:36 Chloride IVPB 100 mls BID [place] Administration Levothyroxine Sodium 25 mcg 05/21/20 06:00 05/22/20 05:13 Synthroid PO 25 mcg 0600 [place] Administration Mirtazapine 15 mg 05/21/20 21:00 05/21/20 20:37 Remeron Soltab PO 15 mg HS [place] Administration Ondansetron HCl 4 mg 05/20/20 20:52 05/21/20 01:02 Zofran IVP 4 mg Q6H PRN Administration Nausea/Vomiting, use 1st Pantoprazole Sodium 40 mg 05/21/20 09:00 05/21/20 09:04 Protonix PO 40 mg DAILY [place] Administration Polyethylene Glycol 17 gm 05/21/20 09:00 05/21/20 08:33 Miralax PO Not Given DAILY [place] Sevelamer Carbonate 2,400 mg 05/21/20 09:00 05/21/20 20:37 Renvela PO 2,400 mg TID [place] Administration - Exam General Appearance: awake alert Neck: no JVD Heart: RRR, III/IV Respiratory: CTAB Gastrointestinal: soft, non-tender, normal bowel sounds Extremities: no edema Hosp A/P (1) Sepsis Code(s): A41.9 - SEPSIS, UNSPECIFIED ORGANISM Status: Resolved Qualifiers: Sepsis type: sepsis due to unspecified organism Hepatic coma status: without hepatic coma Qualified Code(s): A41.9 - Sepsis, unspecified organism (2) Abdominal fluid collection Code(s): R18.8 - OTHER ASCITES Status: Acute (3) Bacteremia Code(s): R78.81 - BACTEREMIA Status: Acute (4) Abnormal cardiac enzyme level Code(s): R74.8 - ABNORMAL LEVELS OF OTHER SERUM ENZYMES Status: Acute (5) Lactic acid increased Code(s): E87.2 - ACIDOSIS Status: Acute (6) Macrocytic anemia with vitamin B12 deficiency Code(s): D51.9 - VITAMIN B12 DEFICIENCY ANEMIA, UNSPECIFIED Status: Acute (7) PAF (paroxysmal atrial fibrillation) Code(s): I48.0 - PAROXYSMAL ATRIAL FIBRILLATION Status: Acute (8) ESRD (end stage renal disease) on dialysis Code(s): N18.6 - END STAGE RENAL DISEASE; Z99.2 - DEPENDENCE ON RENAL DIALYSIS Status: Chronic (9) Hypertension Code(s): I10 - ESSENTIAL (PRIMARY) HYPERTENSION Status: Chronic Qualifiers: Hypertension type: essential hypertension Qualified Code(s): I10 - Essential (primary) hypertension - Plan cont meropenem await gm neg rid ID and sensitivity loculated fluid drainage per Radiology FU later today after discussion with consultants
[2020-05-22] MEDS: Aspirin 81 mg Enteric Coated Tablet PO SCH (10:02)
[2020-05-22] MEDS: Sevelamer Carbonate 800 MG TAB PO SCH ×3 (10:02→17:08)
[2020-05-22] MEDS: Meropenem 500 MG in Sodium Chloride 0.9% 100 ML IVPB SCH ×2 (10:02→20:40)
[2020-05-22] MEDS ORDERED: Cefepime 0.5 GM, Admixture Fee 1 EACH in Sodium Chloride 0.9% 100 ML IVPB SCH (12:00)
[2020-05-22] MEDS ORDERED: Cefepime 0.5 GM in Sodium Chloride 0.9% 100 ML IVPB ONE (12:33)
--- NOTE | 2020-05-22 13:30 | PDOC.GSPN ---
Surgery Progress Note: Subj - Subjective Narrative: Patient feels okay today, just tired. She denies any abdominal pain or nausea. She is still slightly tender to palpation in the right flank area. No generalized abdominal tenderness or peritonitis. Afebrile with normal vital signs. White count is slightly increased. Assessment/plan: Loculated abdominal fluid collections, presumably infected, although the source is unclear. She could have loculated ascites or she could have had some intra-abdominal bleeding from her recent fall, which then became superinfected. She does have gram-negative bacteremia and this is the most likely source. I had spoken with interventional radiology yesterday to schedule percutaneous drainage. At that time, the patient was on a heparin drip which was planned to be continued for 48 hours, so they were planning on doing this on Friday. Her heparin drip was discontinued this morning so we can see if they can do it sooner. The nurse is going to call and check. She is scheduled to undergo hemodialysis this afternoon which may conflict with interventional radiology availability. Will continue to follow. Patient is quite high risk for surgery but currently is stable, and hopefully this can be managed with percutaneous drainage and antibiotics. Surgery Progress Note: Obj - Vital signs Vital signs: Vital Signs - Most Recent Temp Pulse Resp BP Pulse Ox 98.9 F 94 L 05/22/20 11:00 05/22/20 08:00 Surgery Progress Note: Results - Labs Result Diagrams: 05/22/20 06:30 05/22/20 04:37 Lab results: Laboratory Results - last 24 hr 05/22/20 05/22/20 05/22/20 03:20 04:37 04:37 WBC RBC Hgb Hct MCV MCH MCHC RDW Plt Count MPV Neutrophils % (Manual) Band Neuts % (Manual) Lymphocytes % (Manual) Monocytes % (Manual) Basophils % (Manual) Lymphocytes # Plt Morphology Comment Polychromasia PT 24.1 H INR 2.2 APTT 45.2 H Sodium 133 L Potassium 4.8 Chloride 98 Carbon Dioxide 20 L Anion Gap 20 BUN 49 H Creatinine 4.90 H Estimated GFR (MDRD) 9 Glucose 209 H Calcium 7.7 L Phosphorus 6.6 H Magnesium 1.9 Troponin I Vancomycin Trough Blood Type A POSITIVE Antibody Screen POSITIVE H Ab Screen Tube Method NEGATIVE Antibody Identification NEGATIVE Crossmatch See Detail 05/22/20 05/22/20 05/22/20 06:30 06:30 08:49 WBC 11.5 H RBC 3.62 L Hgb 11.5 L Hct 36.6 MCV 101.0 H MCH 31.9 H MCHC 31.6 L RDW 15.7 H Plt Count 96 L MPV 10.5 H Neutrophils % (Manual) 72 Band Neuts % (Manual) 16 H Lymphocytes % (Manual) 2 L Monocytes % (Manual) 9 Basophils % (Manual) 1 Lymphocytes # Not Reportable Plt Morphology Comment Appears Decreased L Polychromasia SLIGHT = 2-3 cells PT INR APTT Sodium Potassium Chloride Carbon Dioxide Anion Gap BUN Creatinine Estimated GFR (MDRD) Glucose Calcium Phosphorus Magnesium Troponin I 3.054 H* Vancomycin Trough 10.6 Blood Type Antibody Screen Ab Screen Tube Method Antibody Identification Crossmatch
[2020-05-22] MEDS ORDERED: Fentanyl 100 MCG/2 ML VIAL ONE (14:30)
[2020-05-22] MEDS ORDERED: Sodium Bicarbonate 2.5 MEQ/5 ML VIAL ONE (14:30)
[2020-05-22] MEDS ORDERED: Midazolam HCl 2 mg/2 ml Vial ONE (14:30)
--- NOTE | 2020-05-22 16:15 | CT ---
CT-guided pelvic abscess drainage HISTORY: Pelvic fluid collection. FINDINGS: After explaining the procedure and answering all questions, CT abdominal drainage was perfo rmed and reported separately. With patient in left lateral decubitus position, the area overlying the right parasacral soft tissues was carefully prepped and draped in usual sterile fashion. Sterile technique, buffered local anesthesia, carefully CT guidance, and a right posterior parasacral approach were used to carefully advance a 19-gauge needle into the loculated fluid collection in the lower pelvis. A 0.035 Amplatz wire was used to hold position. Tract was dilated to 6 Lebanese. A 6 [place] locking loop drain was then carefully placed into the fluid collection. A total of 460 cc blood-tinged yellow liquid was aspirated. A portion sent to laboratory for evaluation. The catheter w as secured externally with 0 silk suture and left draining to gravity. Patient tolerated the procedure well and was returned in improved condition. IMPRESSION : Technically successful CT-guided pelvic fluid collection drainage. Pathology is pending.
--- NOTE | 2020-05-22 16:22 | CT ---
CT-guided abdominal abscess drainage HISTORY: Abdominal abscess. FINDINGS: After explaining the procedure and answering all questions, sonographic survey confirmed la rge subhepatic fluid collection. Sterile technique, buffered local anesthesia, CT guidance, and a right lateral approach were used to carefully advance a 19-gauge needle into the fluid collection. A 0.035 guidewire was used to hold position, tract dilated to 6 South African, and a 6 South African locking loop catheter placed into the fluid colle ction. A total of 360 cc slightly blood-tinged yellow liquid was aspirated. A portion sent to laboratory for evaluation. Imaging after decompression of the fluid collection in the right lateral abdomen showed that the larg e fluid collection was unchanged in volume. Pelvic drainage was performed and reported separately. Catheter was secured externally with 0 silk suture and left draining to gravity. Patient tolerated th e procedure well and was eventually returned in improved condition. IMPRESSION : Technically successful CT-guided abdominal fluid collection drainage.
[2020-05-22] MEDS: Mirtazapine 15 MG Soltab PO SCH (20:40)
[2020-05-23] MEDS: Acetaminophen 325 MG TAB PO PRN ×2 (00:13→04:22)
[2020-05-23] MEDS: Levothyroxine Sodium 25 MCG TAB PO SCH (04:22)
[2020-05-23 04:58] LABS: Anion Gap 17 mmol/L (10-20); BUN (Urea Nitrogen) 31 mg/dL (9.8-20.1); Calc. Creatinine Clearance 11 mL/min (70-130); Calcium 7.8 mg/dL (7.8-10.44); Carbon Dioxide 20 mmol/L (23-31); Chloride 102 mmol/L (98-107); Estimated GFR-MDRD 13; Glucose 110 mg/dL (83-110); Magnesium 1.9 mg/dL (1.6-2.6); Phosphorus 4.4 mg/dL (2.3-4.7); Potassium 4.2 mmol/L (3.5-5.1); Sodium 135 mmol/L (136-145)
[2020-05-23 05:37] LABS: Band 7 % (5-11); Lymphocytes 6 % (21-51); MDiff Complete? YES; Mean Corpuscular HGB CONC 31.6 g/dL (32.0-36.0); Mean Platelet Volume 9.5 fL (7.4-10.4); Monocytes 3 % (0-10); Neutrophil 84 % (42-75); Platelet Count 75 thou/uL (130-400); Platelet Morphology Comment Appears Decreased; RBC Distribution Width 15.4 % (11.5-14.5); Red Blood Cell (RBC) Count 3.44 mill/uL (4.20-5.40); White Blood Cell (WBC) Count 5.9 thou/uL (4.8-10.8)
--- NOTE | 2020-05-23 08:16 | PDOC.HOSPP ---
- Subjective Encounter Date: 05/23/20 Encounter Time: 08:11 Subjective: much better, less anxious. no fever, etc - Objective Vital Signs & Weight: Vital Signs (12 hours) Temp Pulse Resp BP Pulse Ox 05/23/20 03:48 98.6 F 76 18 152/68 H 98 05/22/20 23:57 131/64 Weight Admit Weight 110 lb 9 oz Weight 108 lb 3 oz Most Recent Monitor Data Heart Rate from ECG 77 NIBP 142/57 NIBP BP-Mean 85 Respiration from ECG 14 SpO2 94 I&O: 05/22/20 05/23/20 05/24/20 06:59 06:59 06:59 Intake Total 480 750 Output Total 0 70 Balance 480 680 Result Diagrams: 05/23/20 04:18 05/23/20 04:18 Hospitalist ROS - Medication Medications: Active Medications Generic Name Dose Route Start Last Admin Trade Name Freq PRN Reason Stop Dose Admin Acetaminophen 650 mg 05/20/20 20:52 05/23/20 04:22 Tylenol PO 650 mg Q4H PRN Administration Headache/Fever/Mild Pain (1-3) Aspirin 81 mg 05/21/20 09:00 05/22/20 10:02 Ecotrin PO 81 mg DAILY [place] Administration Meropenem 500 mg/ Sodium 100 mls @ 200 mls/hr 05/21/20 21:00 05/22/20 20:40 Chloride IVPB 100 mls BID [place] Administration Levothyroxine Sodium 25 mcg 05/21/20 06:00 05/23/20 04:22 Synthroid PO 25 mcg 0600 [place] Administration Mirtazapine 15 mg 05/21/20 21:00 05/22/20 20:40 Remeron Soltab PO 15 mg HS [place] Administration Ondansetron HCl 4 mg 05/20/20 20:52 05/21/20 01:02 Zofran IVP 4 mg Q6H PRN Administration Nausea/Vomiting, use 1st Pantoprazole Sodium 40 mg 05/21/20 09:00 05/22/20 10:02 Protonix PO 40 mg DAILY [place] Administration Polyethylene Glycol 17 gm 05/21/20 09:00 05/22/20 08:33 Miralax PO Not Given DAILY [place] Sevelamer Carbonate 2,400 mg 05/22/20 12:00 05/22/20 17:08 Renvela PO Not Given TID-WM [place] - Exam General Appearance: awake alert Neck: no JVD Heart: irregular, II/IV Respiratory: CTAB Gastrointestinal: soft, non-tender, normal bowel sounds Extremities: no edema Hosp A/P (1) Abdominal abscess Code(s): [id number] - Status: Acute (2) Abdominal fluid collection Code(s): R18.8 - OTHER ASCITES Status: Acute (3) Bacteremia Code(s): R78.81 - BACTEREMIA Status: Acute (4) Abnormal cardiac enzyme level Code(s): R74.8 - ABNORMAL LEVELS OF OTHER SERUM ENZYMES Status: Acute (5) Lactic acid increased Code(s): E87.2 - ACIDOSIS Status: Acute (6) Macrocytic anemia with vitamin B12 deficiency Code(s): D51.9 - VITAMIN B12 DEFICIENCY ANEMIA, UNSPECIFIED Status: Acute (7) PAF (paroxysmal atrial fibrillation) Code(s): I48.0 - PAROXYSMAL ATRIAL FIBRILLATION Status: Acute (8) ESRD (end stage renal disease) on dialysis Code(s): N18.6 - END STAGE RENAL DISEASE; Z99.2 - DEPENDENCE ON RENAL DIALYSIS Status: Chronic (9) Hypertension Code(s): I10 - ESSENTIAL (PRIMARY) HYPERTENSION Status: Chronic Qualifiers: Hypertension type: essential hypertension Qualified Code(s): I10 - Essential (primary) hypertension - Plan cont meropenem, Bolld C&S klebsiella, SEns pending post successfull CT guided drainage of abcess cavity ESRD- cont routine HD
--- NOTE | 2020-05-23 09:14 | PRG ---
DATE OF SERVICE: 05/23/2020 SUBJECTIVE: Ms. Augustine is a 75-year-old female with ESRD, was admitted for generalized malaise. She was found to have gram-negative bacteremia, currently on IV antibiotics. During the workup, she was found to have loculated intraabdominal fluid. She underwent a CT scan-guided aspiration of this fluid. About 400 mL of fluid was reported to have been drained. No other complaints today. No chest pain or shortness of breath. The patient is still very anxious. OBJECTIVE: VITAL SIGNS: Blood pressure 152/68, heart rate 76, respiratory rate 18, temperature 98.6, and O2 sat 98%. GENERAL: The patient is awake, alert, comfortable, not in distress. SKIN: Adequate turgor. HEENT: Pinkish conjunctivae. Anicteric sclerae. NECK: No neck mass. No carotid bruits. No JVD. CHEST: No deformities. LUNGS: Clear breath sounds. HEART: Normal sinus rhythm. No murmur. No gallops. No rubs. ABDOMEN: Globular, soft, and nontender. No masses. EXTREMITIES: No edema. No deformities. MEDICATIONS: Medications of May 23, 2020, reviewed. LABORATORY DATA: May 23, 2020; white count 5.9, hemoglobin 11, and hematocrit 34.9. Sodium 135, potassium 4.2, chloride 102, carbon dioxide 20, BUN 31, creatinine 3.51, glucose 110, calcium 7.8, and phosphorus 4.4. ASSESSMENT AND PLAN: 1. End-stage renal disease, stable, tolerating current hemodialysis regimen. Fluid removal was tolerated. 2. Intraabdominal fluid collection - status post paracentesis. Awaiting for pathology. 3. Gram negative lisha bacteremia - the patient has Klebsiella - on IV antibiotics. 4. Coronary artery disease/right heart failure, maxing out fluid removal with dialysis. Job ID: [id number]
[2020-05-23] MEDS: Meropenem 500 MG in Sodium Chloride 0.9% 100 ML IVPB SCH ×2 (09:55→21:40)
[2020-05-23] MEDS: Aspirin 81 mg Enteric Coated Tablet PO SCH (09:56)
[2020-05-23] MEDS: Sevelamer Carbonate 800 MG TAB PO SCH ×3 (09:56→17:53)
--- NOTE | 2020-05-23 10:04 | CT ---
CT-guided abdominal abscess drainage HISTORY: Abdominal abscess. FINDINGS: After explaining the procedure and answering all questions, sonographic survey confirmed la rge subhepatic fluid collection. Sterile technique, buffered local anesthesia, CT guidance, and a right lateral approach were used to carefully advance a 19-gauge needle into the fluid collection. A 0.035 guidewire was used to hold position, tract dilated to 6 Ukrainian, and a 6 Ukrainian locking loop catheter placed into the fluid colle ction. A total of 360 cc slightly blood-tinged yellow liquid was aspirated. A portion sent to laboratory for evaluation. Imaging after decompression of the fluid collection in the right lateral abdomen showed that the larg e fluid collection was unchanged in volume. Pelvic drainage was performed and reported separately. Catheter was secured externally with 0 silk suture and left draining to gravity. Patient tolerated th e procedure well and was eventually returned in improved condition. IMPRESSION : Technically successful CT-guided abdominal fluid collection drainage. Transcribed Date/Time: 05/23/2020 10:04 AM
--- NOTE | 2020-05-23 10:05 | CT ---
CT-guided pelvic abscess drainage HISTORY: Pelvic fluid collection. FINDINGS: After explaining the procedure and answering all questions, CT abdominal drainage was perfo rmed and reported separately. With patient in left lateral decubitus position, the area overlying the right parasacral soft tissues was carefully prepped and draped in usual sterile fashion. Sterile technique, buffered local anesthesia, carefully CT guidance, and a right posterior parasacral approach were used to carefully advance a 19-gauge needle into the loculated fluid collection in the lower pelvis. A 0.035 Amplatz wire was used to hold position. Tract was dilated to 6 Samoan. A 6 Samoan locking loop drain was then carefully placed into the fluid collection. A total of 460 cc blood-tinged yellow liquid was aspirated. A portion sent to laboratory for evaluation. The catheter w as secured externally with 0 silk suture and left draining to gravity. Patient tolerated the procedure well and was returned in improved condition. IMPRESSION : Technically successful CT-guided pelvic fluid collection drainage. Pathology is pending. Transcribed Date/Time: 05/23/2020 10:04 AM
--- NOTE | 2020-05-23 10:08 | PRG ---
DATE OF SERVICE: 05/23/2020 SUBJECTIVE: Ms. Augustine states she got confused last night, but she is oriented now, feels better. She is breathing okay. No chest pain. OBJECTIVE: VITAL SIGNS: Blood pressure is variable, most recently 152/68, pulse 76, regular. LUNGS: Are clear. CARDIAC: Normal S1, normal S2. ABDOMEN: Soft, nontender. Extremities: Mild edema. IMAGING: Echocardiogram revealed that she has ejection fraction 45% to 60% with grade 3 diastolic dysfunction and right ventricular enlargement, but the right ventricle is akinetic, looks like she has had a previous right ventricular infarct. CONCLUSION: 1. Congestive heart failure systolic and diastolic mixed, but mostly diastolic. 2. Right heart failure probably secondary to right ventricular infarction as well. 3. Also underwent drainage of the pelvic fluid collection as well as drainage of abdominal fluid collection. The pathology is pending. Blood cultures however were positive from the . Job ID: [id number]
[2020-05-23] MEDS: Polyethylene Glycol 3350 17 GM Packet PO SCH (10:09)
--- NOTE | 2020-05-23 10:30 | PRG ---
DATE OF SERVICE: 05/23/2020 SUBJECTIVE: This morning, she is awake, alert, and responsive. OBJECTIVE: VITAL SIGNS: Temperature 98, pulse 70, respirations 18, saturations 90% room air, blood pressure 142/60. GENERAL: Denies any pain, shortness of breath, coughing, or wheezing. CHEST: Decreased breath sounds. No wheezing. No crackles. CARDIAC: Normal S1 and S2. No gallops. ABDOMEN: Soft. LABORATORY DATA: Creatinine 3.5. White count _5.9 slight left shift,bands. Blood cultures growing Klebsiella. ASSESSMENT: 1. Klebsiella sepsis. 2. Multiple abdominal abscesses, both drained 350 and 456 mL of turbid fluid. 3. Right pleural effusion with cardiomyopathy. PLAN: She is on meropenem. Continue supportive care. Surgery is following the patient. Pulmonary/Critical Care will follow up. Job ID: [id number] MTDD
--- NOTE | 2020-05-23 18:29 | PDOC.GSPN ---
Surgery Progress Note: Subj - Subjective Narrative: Patient had percutaneous drainage of her right subhepatic and pelvic fluid collections. The drainage is serous and non-cloudy. Gram stain and culture are pending. She is feeling a little bit better and her abdominal tenderness has improved. No new recommendations. Tailor antibiotics to culture results. Surgery Progress Note: Obj - Vital signs Vital signs: Vital Signs - Most Recent Temp Pulse Resp BP Pulse Ox 98.4 F 79 16 142/66 H 99 05/23/20 16:16 05/23/20 16:16 05/23/20 16:16 05/23/20 16:16 05/23/20 16:16 Surgery Progress Note: Results - Labs Result Diagrams: 05/23/20 04:18 05/23/20 04:18
[2020-05-23] MEDS: Mirtazapine 15 MG Soltab PO SCH (21:07)
[2020-05-24] MEDS: Acetaminophen 325 MG TAB PO PRN ×4 (00:56→20:47)
[2020-05-24] MEDS: Levothyroxine Sodium 25 MCG TAB PO SCH (05:00)
[2020-05-24] MEDS: Sevelamer Carbonate 800 MG TAB PO SCH ×3 (08:32→17:09)
[2020-05-24] MEDS: Meropenem 500 MG in Sodium Chloride 0.9% 100 ML IVPB SCH ×3 (08:33→20:47)
[2020-05-24] MEDS: Polyethylene Glycol 3350 17 GM Packet PO SCH (08:33)
[2020-05-24] MEDS: Aspirin 81 mg Enteric Coated Tablet PO SCH (08:33)
--- NOTE | 2020-05-24 09:23 | PRG ---
DATE OF SERVICE: 05/24/2020 SUBJECTIVE: Ms. Augustine is a 75-year-old female with ESRD, currently on maintenance hemodialysis. The patient is scheduled for hemodialysis today. The patient also was found to have gram-negative bacteremia, currently on IV antibiotics. She was also found to have right subhepatic and pelvic fluid collections. Aspiration and drainage was done and it was noted to be serous and noncloudy. Gram stain and culture are pending. The patient is feeling a little better except complaining for some back pain secondary to her decubitus. No chest pain or shortness of breath. OBJECTIVE: VITAL SIGNS: Blood pressure 149/65, heart rate 63, respiratory rate 16, temperature 97.1, O2 saturations 98%. GENERAL: Patient is awake, alert, comfortable, not in distress. SKIN: Adequate turgor. HEENT: She has pinkish conjunctivae. Anicteric sclerae. NECK: No neck mass. No carotid bruits. No JVD. CHEST: No deformities. LUNGS: Clear breath sounds. HEART: Normal sinus rhythm. No murmurs, gallops, or rubs. ABDOMEN: Globular, soft, nontender. No masses. EXTREMITIES: No edema. MEDICATIONS: May 24, 2020, was reviewed. LABORATORY DATA: May 23, 2020, white count 5.9, hemoglobin 11. Sodium 135, potassium 4.2, chloride 102, carbon dioxide 20, BUN 31, creatinine 3.51, phosphorus 4.4. May 22, 2020, troponin I was 3.0. ASSESSMENT AND PLAN: 1. Coronary artery disease/elevated troponin I-medical management per Cardiology. 2. Gram-negative bacteremia, on IV antibiotics. 3. Endstage renal disease, stable. We will continue current Friday, Friday, and Friday hemodialysis. Again, fluid removal only as tolerated by the patient. Overall, prognosis remains guarded. Job ID: [id number]
--- NOTE | 2020-05-24 09:48 | PRG ---
DATE OF SERVICE: 05/24/2020 SUBJECTIVE: Ms. Augustine is complaining of discomfort at the drain insertion site. She is not short of breath. Otherwise, she is feeling relatively well and wants to go home. OBJECTIVE: VITAL SIGNS: Her blood pressure is 149/65, pulse 63 and it is regular. LUNGS: Clear. CARDIAC: Normal S1, normal S2. DIAGNOSTIC DATA: Echocardiogram yesterday revealed an ejection fraction of 45% to 50%. Of note, there is paradoxical septal motion. The right ventricle is enlarged and much of the right ventricle is akinetic CONCLUSION: 1. End-stage renal disease, fluid collection, status post drainage. 2. Right heart failure likely due to previous right ventricular infarct. 3. Hypertension. 4. Coronary artery disease. 5. Hpa-KS-awrpelkby myocardial infarction, likely demand ischemia. 6. Status post episode of sepsis. PLAN: From a cardiac standpoint, the patient could be released home. The long-term prognosis is poor. No further intervention. I did review the previous cardiac catheterization reports and descriptions. There is no further intervention feasible from a coronary standpoint in my opinion. He said the patient could be released home. Long-term prognosis is poor. Job ID: [id number]
--- NOTE | 2020-05-24 10:32 | PRG ---
DATE OF SERVICE: 05/24/2020 SUBJECTIVE: This morning, she is awake, alert, and responsive. No shortness of breath. OBJECTIVE: VITAL SIGNS: Temperature 97, pulse 63, respirations 16, sats _96% on 2 L, blood pressure 149/65. CHEST: No wheezing, no crackles. CARDIAC: Normal S1 No gallops. ABDOMEN: No masses. ASSESSMENT: 1. Abdominal abscess, Klebsiella. 2. Chronic renal failure. 3. Coronary artery disease. 4. Pleural effusion. PLAN: Continue present drainage. Input from Infectious Disease, how long antibiotic needs to be given. Job ID: [id number] MTDD
--- NOTE | 2020-05-24 11:36 | PDOC.HOSPP ---
- Subjective Encounter Date: 05/24/20 Encounter Time: 11:34 Subjective: abcess drainage equipment uncomfortable, OW ok - Objective Vital Signs & Weight: Vital Signs (12 hours) Temp Pulse Resp BP Pulse Ox 05/24/20 08:00 97.1 F L 63 16 149/65 H 98 05/24/20 03:38 98.5 F 74 20 119/59 L 94 L 05/23/20 23:41 156/71 H Weight Admit Weight 110 lb 9 oz Weight 108 lb 3 oz Most Recent Monitor Data Heart Rate from ECG 77 NIBP 142/57 NIBP BP-Mean 85 Respiration from ECG 14 SpO2 94 I&O: 05/23/20 05/24/20 05/25/20 06:59 06:59 06:59 Intake Total 750 880 Output Total 70 35 Balance 680 845 Result Diagrams: 05/23/20 04:18 05/23/20 04:18 Hospitalist ROS - Medication Medications: Active Medications Generic Name Dose Route Start Last Admin Trade Name Freq PRN Reason Stop Dose Admin Acetaminophen 650 mg 05/20/20 20:52 05/24/20 08:33 Tylenol PO 650 mg Q4H PRN Administration Headache/Fever/Mild Pain (1-3) Aspirin 81 mg 05/21/20 09:00 05/24/20 08:33 Ecotrin PO 81 mg DAILY [place] Administration Meropenem 500 mg/ Sodium 100 mls @ 200 mls/hr 05/21/20 21:00 05/24/20 10:02 Chloride IVPB 100 mls BID [place] Administration Levothyroxine Sodium 25 mcg 05/21/20 06:00 05/24/20 05:00 Synthroid PO 25 mcg 0600 [place] Administration Mirtazapine 15 mg 05/21/20 21:00 05/23/20 21:07 Remeron Soltab PO 15 mg HS [place] Administration Ondansetron HCl 4 mg 05/20/20 20:52 05/21/20 01:02 Zofran IVP 4 mg Q6H PRN Administration Nausea/Vomiting, use 1st Pantoprazole Sodium 40 mg 05/21/20 09:00 05/24/20 08:33 Protonix PO 40 mg DAILY [place] Administration Polyethylene Glycol 17 gm 05/21/20 09:00 05/24/20 08:33 Miralax PO Not Given DAILY [place] Sevelamer Carbonate 2,400 mg 05/22/20 12:00 05/24/20 08:32 Renvela PO 2,400 mg TID-WM [place] Administration - Exam General Appearance: awake alert Neck: no JVD Heart: RRR Respiratory: CTAB Gastrointestinal: soft, normal bowel sounds Extremities: no edema Hosp A/P (1) Abdominal abscess Code(s): [id number] - Status: Acute (2) Abdominal fluid collection Code(s): R18.8 - OTHER ASCITES Status: Acute (3) Bacteremia Code(s): R78.81 - BACTEREMIA Status: Acute (4) Abnormal cardiac enzyme level Code(s): R74.8 - ABNORMAL LEVELS OF OTHER SERUM ENZYMES Status: Acute (5) Lactic acid increased Code(s): E87.2 - ACIDOSIS Status: Acute (6) Macrocytic anemia with vitamin B12 deficiency Code(s): D51.9 - VITAMIN B12 DEFICIENCY ANEMIA, UNSPECIFIED Status: Acute (7) PAF (paroxysmal atrial fibrillation) Code(s): I48.0 - PAROXYSMAL ATRIAL FIBRILLATION Status: Acute (8) ESRD (end stage renal disease) on dialysis Code(s): N18.6 - END STAGE RENAL DISEASE; Z99.2 - DEPENDENCE ON RENAL DIALYSIS Status: Chronic (9) Hypertension Code(s): I10 - ESSENTIAL (PRIMARY) HYPERTENSION Status: Chronic Qualifiers: Hypertension type: essential hypertension Qualified Code(s): I10 - Essential (primary) hypertension - Plan cont meropenem, C&S klebsiella, SEns pending consult ID for help with timing ofiv antibx post successfull CT guided drainage of abcess cavity ESRD- cont routine HD cont routine BP meds
[2020-05-24] MEDS ORDERED: cloNIDine 0.1 MG TAB PO PRN (11:45)
--- NOTE | 2020-05-24 13:46 | PDOC.GSPN ---
Surgery Progress Note: Subj - Subjective Narrative: Patient seen in dialysis. Drainage from both fluid collections is still serous in appearance. Culture shows no growth to date. From my standpoint it is okay for her to go home with the drains in place if she and her family are comfortable managing these. A drain log will need to be kept. These can be removed as an outpatient once the output is low. She should call for an appointment in my clinic when the output from either drain is less than 30 mL a day. It is still not clear to me what the etiology of these fluid collections is. They certainly do not look traumatic as they were not hemorrhagic, nor do they appear infectious, as might result from a contained perforation as there were no bacteria on culture and no gas or bilious color in the fluid collections. The widely divided location of the fluid collections would also argue against this etiology. In any case, these fluid collections seem unlikely to be the source of her Klebsiella bacteremia. It is possible that this just represents ascites from her worsening heart failure and that she has so many adhesions that it presented in these loculated confined areas. If this is the case, the drainage may stay high, and removal of the drains may cause the fluid collections to reaccumulate. Given her unreconstructable heart disease I wonder if a referral to hospice might be appropriate at this point. Surgery Progress Note: Obj - Vital signs Vital signs: Vital Signs - Most Recent Temp Pulse Resp BP Pulse Ox 97 F L 64 18 145/66 H 100 05/24/20 11:33 05/24/20 11:33 05/24/20 11:33 05/24/20 11:33 05/24/20 11:33 Surgery Progress Note: Results - Labs Result Diagrams: 05/23/20 04:18 05/23/20 04:18
[2020-05-24] MEDS: hydrALAZINE 25 MG TAB PO SCH ×2 (15:33→20:47)
[2020-05-24] MEDS: Mirtazapine 15 MG Soltab PO SCH (20:47)
[2020-05-25] MEDS ORDERED: traZODone HCl 50 MG TAB PO SCH (01:15)
[2020-05-25 05:05] LABS: Hemoglobin 9.9 g/dL (12.0-16.0); Platelet Count 68 thou/uL (130-400)
[2020-05-25 05:18] LABS: Anion Gap 12 mmol/L (10-20); BUN (Urea Nitrogen) 26 mg/dL (9.8-20.1); Calc. Creatinine Clearance 12 mL/min (70-130); Calcium 7.8 mg/dL (7.8-10.44); Carbon Dioxide 29 mmol/L (23-31); Chloride 99 mmol/L (98-107); Estimated GFR-MDRD 14; Glucose 91 mg/dL (83-110); Potassium 3.9 mmol/L (3.5-5.1); Sodium 136 mmol/L (136-145)
[2020-05-25] MEDS: Levothyroxine Sodium 25 MCG TAB PO SCH (05:27)
[2020-05-25] MEDS: Acetaminophen 325 MG TAB PO PRN ×2 (05:27→22:12)
--- NOTE | 2020-05-25 08:39 | PDOC.HOSPP ---
- Subjective Encounter Date: 05/25/20 Encounter Time: 08:34 Subjective: I'm scared I will alone without my - Objective Vital Signs & Weight: Vital Signs (12 hours) Temp Pulse Resp BP Pulse Ox 05/25/20 04:00 97.8 F 65 19 114/57 L 100 05/24/20 23:28 132/63 05/24/20 20:47 70 Weight Admit Weight 110 lb 9 oz Weight 108 lb 3 oz Most Recent Monitor Data Heart Rate from ECG 77 NIBP 142/57 NIBP BP-Mean 85 Respiration from ECG 14 SpO2 94 I&O: 05/24/20 05/25/20 05/26/20 06:59 06:59 06:59 Intake Total 880 880 Output Total 35 2009 Balance 845 -1130 Result Diagrams: 05/25/20 04:20 05/25/20 04:20 Additional Labs: Accuchecks 05/25/20 07:06 POC Glucose 93 Hospitalist ROS - Medication Medications: Active Medications Generic Name Dose Route Start Last Admin Trade Name Freq PRN Reason Stop Dose Admin Acetaminophen 650 mg 05/20/20 20:52 05/25/20 05:27 Tylenol PO 650 mg Q4H PRN Administration Headache/Fever/Mild Pain (1-3) Aspirin 81 mg 05/21/20 09:00 05/24/20 08:33 Ecotrin PO 81 mg DAILY [place] Administration Hydralazine HCl 25 mg 05/24/20 15:00 05/24/20 20:47 Apresoline PO 25 mg TID [place] Administration Meropenem 500 mg/ Sodium 100 mls @ 200 mls/hr 05/21/20 21:00 05/24/20 20:47 Chloride IVPB 100 mls BID [place] Administration Levothyroxine Sodium 25 mcg 05/21/20 06:00 05/25/20 05:27 Synthroid PO 25 mcg 0600 [place] Administration Mirtazapine 15 mg 05/21/20 21:00 05/24/20 20:47 Remeron Soltab PO 15 mg HS [place] Administration Ondansetron HCl 4 mg 05/20/20 20:52 05/21/20 01:02 Zofran IVP 4 mg Q6H PRN Administration Nausea/Vomiting, use 1st Pantoprazole Sodium 40 mg 05/21/20 09:00 05/24/20 08:33 Protonix PO 40 mg DAILY [place] Administration Polyethylene Glycol 17 gm 05/21/20 09:00 05/24/20 08:33 Miralax PO Not Given DAILY [place] Sevelamer Carbonate 2,400 mg 05/22/20 12:00 05/24/20 17:09 Renvela PO 2,400 mg TID-WM [place] Administration - Exam General Appearance: awake alert Neck: no JVD Heart: RRR Respiratory: CTAB Gastrointestinal: soft, normal bowel sounds Gastrointestinal - other findings: drainage from abcess low overnite Extremities: no edema Hosp A/P (1) Abdominal abscess Code(s): [id number] - Status: Acute (2) Abdominal fluid collection Code(s): R18.8 - OTHER ASCITES Status: Acute (3) Bacteremia Code(s): R78.81 - BACTEREMIA Status: Acute (4) Abnormal cardiac enzyme level Code(s): R74.8 - ABNORMAL LEVELS OF OTHER SERUM ENZYMES Status: Acute (5) Lactic acid increased Code(s): E87.2 - ACIDOSIS Status: Acute (6) Macrocytic anemia with vitamin B12 deficiency Code(s): D51.9 - VITAMIN B12 DEFICIENCY ANEMIA, UNSPECIFIED Status: Acute (7) PAF (paroxysmal atrial fibrillation) Code(s): I48.0 - PAROXYSMAL ATRIAL FIBRILLATION Status: Acute (8) ESRD (end stage renal disease) on dialysis Code(s): N18.6 - END STAGE RENAL DISEASE; Z99.2 - DEPENDENCE ON RENAL DIALYSIS Status: Chronic (9) Hypertension Code(s): I10 - ESSENTIAL (PRIMARY) HYPERTENSION Status: Chronic Qualifiers: Hypertension type: essential hypertension Qualified Code(s): I10 - Essential (primary) hypertension - Plan cont meropenem, C&S klebsiella, SEns pending consult ID for help with timing ofiv antibx post successfull CT guided drainage of abcess cavity await Dr Morgan's comment on Abd drain ESRD- cont routine HD cont routine BP meds
[2020-05-25] MEDS: Meropenem 500 MG in Sodium Chloride 0.9% 100 ML IVPB SCH (08:52)
[2020-05-25] MEDS: Calcitriol 0.25 MCG CAP PO SCH (08:52)
[2020-05-25] MEDS: Aspirin 81 mg Enteric Coated Tablet PO SCH (08:52)
[2020-05-25] MEDS: Cholecalciferol 1,000 UNITS (25 MCG) TAB PO SCH (08:52)
[2020-05-25] MEDS: Sevelamer Carbonate 800 MG TAB PO SCH ×3 (08:53→17:33)
[2020-05-25] MEDS: hydrALAZINE 25 MG TAB PO SCH ×3 (08:53→20:49)
[2020-05-25] MEDS ORDERED: Epoetin (ESRD) 20,000 UNITS/ML SC SCH (09:15)
[2020-05-25] MEDS: Polyethylene Glycol 3350 17 GM Packet PO SCH (09:20)
[2020-05-25] MEDS ORDERED: EPOETIN ALFA-EPBX (ESRD) 4,000 UNIT/ML VIAL SC SCH (09:30)
--- NOTE | 2020-05-25 09:30 | PRG ---
DATE OF SERVICE: 05/25/2020 SUBJECTIVE: Ms. Augustine is a 75-year-old female with known history of ESRD, currently on maintenance hemodialysis. She was admitted for generalized malaise. She was found to have a gram-negative bacteremia, currently on IV antibiotics. She also had an elevated troponin I. Cardiology is following this patient. Conservative management is recommended. The patient is very anxious. No complaints of chest pain or shortness of breath. OBJECTIVE: VITAL SIGNS: Blood pressure 114/57, heart rate 65, respiratory rate 19, temperature 97.8, O2 saturation 100%. GENERAL: The patient is awake, alert, comfortable, not in distress. SKIN: Adequate turgor. HEENT: She has pinkish conjunctivae. Anicteric sclerae. NECK: No neck mass. No carotid bruits. No JVD. CHEST: No deformities. LUNGS: Decreased breath sounds. HEART: Normal sinus rhythm. No murmurs, gallops, or rubs. ABDOMEN: Globular, soft, nontender. No masses. EXTREMITIES: No edema, no deformities. MEDICATIONS: May 25, 2020, was reviewed. LABORATORY DATA: May 25, 2020, hemoglobin 9.9. Sodium 136, potassium 3.9, chloride 99, carbon dioxide 29, BUN 26, creatinine 3.22, glucose 91, calcium 7.8 ASSESSMENT AND PLAN: 1. Endstage renal disease, stable. We will continue current Friday, Friday, and Friday hemodialysis regimen. Tolerating fluid removal. 2. Gram-negative bacteremia/Klebsiella-on IV meropenem. 3. Anemia. We will start Epogen 7500 units subcu every week. 4. Please note infectious Disease consult has been done with Dr. Watson. Job ID: [id number]
[2020-05-25 12:42] VITALS: BMI 19.8
--- NOTE | 2020-05-25 13:37 | PDOC.GSPN ---
Surgery Progress Note: Subj - Subjective Narrative: Patient was very sleepy this morning but did deny abdominal pain. No apparent tenderness to palpation. Minimal serous drainage in both bags. Only 10 mL's documented out in the last 24 hours. Cultures are negative and I do not think that these fluid collections are the source of her bacteremia. If okay with Dr. Watson, I recommend that both drains be removed before discharge. No surgical follow-up necessary. Signing off. Surgery Progress Note: Obj - Vital signs Vital signs: Vital Signs - Most Recent Temp Pulse Resp BP Pulse Ox 98.1 F 61 16 130/59 L 99 05/25/20 11:04 05/25/20 11:04 05/25/20 11:04 05/25/20 11:04 05/25/20 11:04 Surgery Progress Note: Results - Labs Result Diagrams: 05/25/20 04:20 05/25/20 04:20 Lab results: Laboratory Results - last 24 hr 05/25/20 05/25/20 05/25/20 04:20 04:20 07:06 Hgb 9.9 L Hct 31.0 L Plt Count 68 L Sodium 136 Potassium 3.9 Chloride 99 Carbon Dioxide 29 Anion Gap 12 BUN 26 H Creatinine 3.22 H Estimated GFR (MDRD) 14 Glucose 91 POC Glucose 93 Calcium 7.8
--- NOTE | 2020-05-25 14:39 | PDOC.EVN ---
Event Note - Event Note Event Note: half past noon patient tried to swallow 3 renvela tabs. they apparently lodged in esophagus. tried drinking liquids to help, which she coughed up. Cristiano tyler called. she had no resp distress, chest was clear. as i was talking with GI re endoscopy, she related that the pills passed. subsequently swallowed jello without difficulty.
--- NOTE | 2020-05-25 18:27 | CON ---
DATE OF CONSULTATION: 05/25/2020 REASON FOR CONSULTATION: Bacteremia. HISTORY OF PRESENT ILLNESS: A 75-year-old patient. I last saw her in 11/2015 with a history of end-stage renal disease due to hypertension. No diabetes mellitus , but coronary artery disease and peripheral vascular disease. At that time, she had a pneumonia and she had pancytopenia. There was evidence of chronic liver disease , likely cirrhosis by the imaging study done then. Now, it is probably causing the pancytopenia. I have not seen her since she has been admitted a few times. In 07/09, she came in with UTI, associated with fever and weakness. In 2018, she came because again another episode of UTI. This time, E coli was retrieved. She had returned from a cruise and had altered mental state. She was hypotensive. Urine culture then showed E coli and Klebsiella pneumoniae with a very broad susceptibility profile. Blood cultures are negative. Then, in 2019, she has had thus far already 3 admissions and this is the 4th. In 10/18, she presented with pancytopenia, heart failure, respiratory difficulty with hypoxemia, and pulmonary vascular congestion. In November, she had a gastrointestinal bleed while she was on Eliquis for paroxysmal atrial fibrillation. She had an EGD, which was normal, and a colonoscopy with polypectomy. No source of bleeding was found. So, Eliquis was discontinued. The final one was at the end of April, and when she presented with dizziness, discharge diagnosis was [id number] elevation OK. At this time she was brought pretty much the day of the discharge from the last admission with nausea, vomiting, feeling unwell. Did not have any headaches. No cough. No shortness of breath or chest pain. She did have some abdominal pain earlier. No dysuria. Multiple episodes of diarrhea, but no blood. PAST MEDICAL HISTORY: 1. End-stage renal disease, not clear etiology, associated with hypertension, that probably could be secondary to the end-stage renal disease from another cause. 2. Coronary artery disease. 3. CHF. 4. She is dialyzed through an AV fistula. 5. She has had pneumonia. 6. Pancytopenia due to chronic liver disease with cirrhosis. 7. She had what was diagnosed as UTIs, probably pyocystitis. ALLERGIES: IODINE CONTRAST, MINOXIDIL, PENICILLIN, PROMETHAZINE, MORPHINE, AND DIPHENHYDRAMINE. SOCIAL HISTORY: Never smoker. Lives in the area. No alcoholic beverage. SURGICAL HISTORY: 1. Coronary artery bypass graft surgery. 2. Appendectomy. 3. Cholecystectomy. 4. AV fistula placement. CURRENT MEDICATION LIST: Includes: 1. Meropenem. 2. Calcitriol. 3. Aspirin. PHYSICAL EXAMINATION: VITAL SIGNS: T-max 99.8 and she has been afebrile since, BP 120/58, pulse 62, respirations 16, and O2 saturation 100 on 2 L. SKIN: Not remarkable. The patient has an accessible AV fistula in the right upper extremity. She has no Ramos catheter. The patient is emaciated. Temporal wasting is noted. No lymphadenopathy. HEENT: Ocular movements conjugate. Sclerae white. Pupils are 2 mm and reactive. Conjunctivae normal, somewhat pale. Oral cavity with no [place] teeth remaining. NECK: Supple. No jugular vein distention. LUNGS: Symmetric, clear breath sounds. HEART: S1 and S2. Regular rate with a soft aortic murmur. ABDOMEN: Soft, not distended. No tenderness. She has those percutaneous drains placed in the intra-abdominal and pelvic collections. The collections have very light serous consistency or appearance, fairly did not appear to be consistent with an abscess and the Gram stain is relevant to this finding. No bladder distention. EXTREMITIES: No inflammatory activity in any joint. No edema. Pulses diminished in dorsalis pedis, but palpable. She is able to move extremities. NEUROLOGIC: Follows commands. Good recollection. Speech is normal. LABORATORY DATA: White cell count started at 7.8 and now 5.9, hemoglobin 11, platelets 75,000, and 84% neutrophils. INR 2.2. Creatinine 3.22, sodium 136, carbon dioxide 29, calcium 7.7, lactic acid 3.0, and albumin 3.4. TSH 4.6. Toxicology with vancomycin trough of 10.6. Microbiology with 2 sets of blood cultures with Klebsiella pneumoniae, the samples were obtained from the left hand and they are logged at about 30 minutes apart. The organism is pansusceptible and is similar in susceptibility to an organism that was isolated from her bladder on 10/13/2018. She had an abdomen and pelvis CT on 05/20, and this demonstrated a loculated fluid collections in the right subhepatic region and pelvic cul-de- sac. There is a mildly thickened rim of about each of this fluid collections and there is some evidence of additional areas of peritoneal enhancement. We did not have any submission of any sample for cell count, protein, just for cultures from the fluid and thus far is negative. The Gram stain showed a few wbc's and some rbc's. ASSESSMENT: 1. End-stage renal disease of uncertain etiology, possibly secondary to an arteriosclerosis and nephrosclerosis, not associated with diabetes though. Chronic glomerulonephritis is not excluded. 2. Prior episodes of urinary tract infection with previous Klebsiella isolate, which has the same phenotype as the current one retrieved from blood cultures. 3. General malaise with positive blood cultures obtained 30 minutes apart and those collections in the abdominal area and some findings in the imaging study, which are consistent with peritonitis. 4. Liver cirrhosis of uncertain etiology. DISCUSSION: The differential diagnosis includes peritonitis associated with the liver cirrhosis and collections described part of the process potentially and with colonization by Klebsiella pneumoniae versus Klebsiella pneumoniae UTI with pyelonephritis. The 1st option is the more likely one. At this point, I would recommend removal of the drains in the back and switch her to oral ciprofloxacin in preparation for discharge planning. Another evaluation can be performed as a straight cath urinalysis and urine culture to confirm the above impression. Other possibilities include respiratory tract infection, spinal, bone, and joint infection are not likely. Endocarditis is unlikely. Job ID: [id number] [facility]
[2020-05-25 19:07] LABS: Bacteria/HPF 4+ HPF (None Seen); Bilirubin Negative (Negative); Blood, Urine 2+ (Negative); Clarity Extra Turbid (Clear); Glucose, Urine (Dipstick) Normal (Negative); Ketone, Urine Negative (Negative); Leukocyte 500 Leu/uL (Negative); Nitrite Negative (Negative); Protein, Urine (Dipstick) 200 mg/dL (Neg-Trace); RBC/HPF Greater than 50 HPF (0-3); Specific Gravity, Urine 1.015 (1.002-1.036); Squamous Epithelial None Seen HPF (0-3); Urobilinogen Normal mg/dL (Less than 2); WBC/HPF Greater than 50 HPF (0-3)
[2020-05-25 19:11] LABS: Urine Culture Reflex Yes Yes
[2020-05-25] MEDS: Mirtazapine 15 MG Soltab PO SCH (20:48)
[2020-05-25] MEDS ORDERED: Losartan 25 MG TAB PO SCH (21:00)
[2020-05-26] MEDS: Levothyroxine Sodium 25 MCG TAB PO SCH (05:16)
[2020-05-26] MEDS: Sevelamer Carbonate 800 MG TAB PO SCH ×2 (07:50→14:45)
--- NOTE | 2020-05-26 09:30 | PRG ---
DATE OF SERVICE: 05/26/2020 SUBJECTIVE: Ms. Augustine is a 75-year-old female with ESRD, currently on maintenance hemodialysis. She is currently tolerating her current hemodialysis regimen. Fluid removal is also tolerated. She was initially admitted for Klebsiella bacteremia. She is on IV antibiotics. ID has evaluated this patient and seems that she most likely does not have infective endocarditis. The patient voices no new complaints. In the interim, she has had a paracentesis of the loculated intraabdominal fluid. No complaints of chest pain or shortness of breath. OBJECTIVE: VITAL SIGNS: Blood pressure 123/59, heart rate 61, respiratory rate 12, O2 saturations 99%, and temperature 97.8. GENERAL: The patient is awake, alert, and comfortable, not in distress. SKIN: Adequate turgor. HEENT: Slightly pale conjunctivae. Anicteric sclerae. NECK: No neck mass. No carotid bruits. No JVD. CHEST: No deformities. LUNGS: Clear breath sounds. No wheezing. No crackles. HEART: Normal sinus rhythm. No murmurs. No gallops. No rubs. ABDOMEN: Globular, soft, and nontender. No masses. EXTREMITIES: No edema. MEDICATIONS: Medications of May 26, 2020, were reviewed. LABORATORY DATA: Laboratories of May 26, 2020, sugar was noted at 93. On May 25, 2020, potassium 3.9, creatinine 3.22, and hemoglobin was noted at 9.9. ASSESSMENT AND PLAN: 1. Anemia. Continuing weekly Epogen with this patient. P.r.n. blood transfusion only for hemoglobin less than 7. 2. Bacteremia, status post IV antibiotics, doing well. 3. End-stage renal disease, stable. We will continue current Friday, Friday, and Friday hemodialysis regimen. Again, fluid removal only as tolerated by the patient. Overall, the patient doing well. Agree for plan discharge today. Job ID: [id number]
[2020-05-26] MEDS: hydrALAZINE 25 MG TAB PO SCH ×2 (12:46→15:26)
[2020-05-26] MEDS: Polyethylene Glycol 3350 17 GM Packet PO SCH (12:47)
[2020-05-26] MEDS: Aspirin 81 mg Enteric Coated Tablet PO SCH (15:25)
[2020-05-26] MEDS: Calcitriol 0.25 MCG CAP PO SCH (15:25)
[2020-05-26] MEDS: Cholecalciferol 1,000 UNITS (25 MCG) TAB PO SCH (15:26)
[2020-05-26 16:07] VITALS: BP 138/63; TEMP 98.3
--- NOTE | 2020-05-27 15:15 | DIS ---
DATE OF ADMISSION: 05/20/2020 DATE OF DISCHARGE: 05/26/2020 PRIMARY CARE PROVIDER: Chica Early MD. DISPOSITION: Discharged home. FINAL DIAGNOSES: Abdominal abscess, acute on chronic systolic heart failure, paroxysmal atrial fibrillation, coronary artery disease, end-stage renal disease, hypertension, pancytopenia, Klebsiella pneumoniae bacteremia, chronic hypoxic respiratory failure, on O2. DISCHARGE MEDICATIONS: 1. Levaquin 250 mg p.o. daily x10. 2. Aspirin 81 mg a day. 3. Levothyroxine 25 mcg a day. 4. Mirtazapine 15 mg a day. 5. Sevelamer three tabs t.i.d. 6. Hydralazine 25 mg three times a day. 7. Calcitriol 25 mcg a day. 8. Vitamin D3 50 mcg a day. 9. Losartan 100 mg a day. 10. Clonidine 0.2 mg twice a day. ALLERGIES: IODINE CONTRAST, MINOXIDIL, MORPHINE, PENICILLINS, PROMETHAZINE, DIPHENHYDRAMINE. DIET: Renal, high-protein. RESUSCITATION STATUS: Full. PENDING AT TIME OF DISCHARGE: Nothing. HOSPITAL COURSE: The patient admitted to the hospital to the emergency department on 05/20/20 with nausea, vomiting. Imaging revealed an abdominal fluid collection. The patient was admitted with a diagnosis of severe sepsis, lactic acidosis, end-stage renal disease, and multiple other diagnoses. She was placed on IV antibiotics. Dr. Bubba Castelan was consulted. Dr. Cesar Wiggins was consulted, agreed with cefepime and meropenem. He wanted to dialyze her regular Friday, Friday, Friday to maximize fluid retention. Dr. Dylan Schmidt was consulted. She recommended percutaneous drainage of the intraabdominal fluid collection, which was done on 05/22/20. The fluid was negative. The urine culture was also negative. She was seen by Dr. Vazquez, Cardiology. Because of her elevated troponins and atrial fibrillation, she was anticoagulated for a brief period of time. Also noted was EF of 45% to 50% with severe tricuspid regurg. The patient actually improved relatively rapidly on IV antibiotics. Echocardiogram confirmed previous . During the hospital stay her laboratory, her white count remained normal except for 05/22/20 when it was minimally elevated at 11.5. Hemoglobin remained stable in the 11 to 12 range. She had a mild thrombocytopenia of 75% to 96%. Her electrolytes remained within reasonable range. Troponins were elevated at 1.9 to 3.0, consistent with type [address] Watson was consulted for antibiotic recommendations and he recommended transition to oral quinolone at this time. She is being discharged on 10 days of oral quinolone to continue her on Friday, Friday, Friday hemodialysis appointments. She will need follow up at hemodialysis and with Dr. Chica Early in 3 to 7 days. At the time of discharge, abdomen was benign. The drains have been removed. The patient is on chronic home O2 at 2 L. Her vital signs are stable. Cardiorespiratory exam is unremarkable. She has been afebrile during her hospital stay. TIME SPENT: 45 minutes was spent preparing this discharge. Job ID: [id number]
== END 2020-05-26 17:15 | disposition home or self-care (01) | DRG 871 ==
LOC: ERS 16:33 → IMCU/EMU 20:15 → 2NO 05-22 21:50
PROVIDERS: ADMIT Internal Medicine; ATTEND Internal Medicine
PROC: 0W9G3ZZ Drainage of Peritoneal Cavity, Percutaneous Approach (ICD-10-PCS; principal; 2020-05-22)
PROC: 5A1D70Z Performance of Urinary Filtration, Intermittent, Less than 6 Hours Per Day (ICD-10-PCS; 2020-05-26)
DX: A41.89 Other specified sepsis (principal); N18.6 End stage renal disease; K65.1 Peritoneal abscess; I50.23 Acute on chronic systolic (congestive) heart failure; I21.A1 Myocardial infarction type 2; I13.2 Hypertensive heart and chronic kidney disease with heart failure and with stage 5 chronic kidney disease, or end stage renal disease; K92.2 Gastrointestinal hemorrhage, unspecified; J90 Pleural effusion, not elsewhere classified; R18.8 Other ascites; J96.10 Chronic respiratory failure, unspecified whether with hypoxia or hypercapnia; B96.1 Klebsiella pneumoniae [K. pneumoniae] as the cause of diseases classified elsewhere; R65.20 Severe sepsis without septic shock; I50.810 Right heart failure, unspecified; I25.10 Atherosclerotic heart disease of native coronary artery without angina pectoris; K21.9 Gastro-esophageal reflux disease without esophagitis; R74.8 Abnormal levels of other serum enzymes; I48.0 Paroxysmal atrial fibrillation; D51.9 Vitamin B12 deficiency anemia, unspecified; E11.22 Type 2 diabetes mellitus with diabetic chronic kidney disease; D64.9 Anemia, unspecified; E78.00 Pure hypercholesterolemia, unspecified; D69.6 Thrombocytopenia, unspecified; I73.9 Peripheral vascular disease, unspecified; K74.60 Unspecified cirrhosis of liver; Z99.2 Dependence on renal dialysis; Z88.6 Allergy status to analgesic agent; Z90.49 Acquired absence of other specified parts of digestive tract; Z88.0 Allergy status to penicillin; Z88.8 Allergy status to other drugs, medicaments and biological substances; Z98.890 Other specified postprocedural states; Z79.899 Other long term (current) drug therapy; Z99.81 Dependence on supplemental oxygen; Z79.82 Long term (current) use of aspirin; Z95.1 Presence of aortocoronary bypass graft
CPT/HCPCS: 36415; 36416; 49020; 71045; 74176; 74177; 77002; 80048; 80053; 80202; 81001; 82553; 83605; 83735; 83880; 84100; 84439; 84443; 84484; 85014; 85018; 85025; 85049; 85610; 85730; 86850; 86870; 86900; 86901; 86922; 87040; 87070; 87077; 87086; 87149; 87186; 87205; 87804; 90935; 93306; 96361; 96365; 96367; 96375; G0257; J0692; J1200; J1644; J2185; J2250; J2405; J2930; J3010; J3370; J3490; Q0163; Q5105; Q9967; S0028

== ENCOUNTER 2020-09-06 09:59 | Outpatient (CLI) | payer MEDICARE, OTHER ==
--- NOTE | 2020-09-06 10:44 | RAD ---
EXAM: Two views chest PROVIDED CLINICAL HISTORY: Shortness of breath. COMPARISON: 04/30/2020 FINDINGS: Postoperative changes related to median sternotomy and likely CABG are again seen. Cardiac silhouette remains enlarged. Pulmonary vasculature is borderline increased. There is increased interstitial opacity seen throughout the lungs bilaterally. Pleural-based density along the lateral aspect right m id and lower lung zones is present which may represent either pleural thickening or persistent right pleural effusion. Vascular calcification are again seen in thoracic and visualized abdominal ao rta. Vascular stent again overlies the right axillary region. IMPRESSION: 1. Increased interstitial opacities bilaterally with greater patchy parenchymal opacity at the right lung base. Similar findings were seen on the prior exam. These findings could be related to pulmonary edema or infectious process. Element of chronic interstitial lung changes is a possibility. 2. Cardiomegaly. 3. Right pleural based density which may represent right pleural effusion.
== END 2020-09-06 10:00 | disposition home or self-care (01) ==
LOC: BICRAD 09:59
PROVIDERS: ATTEND Internal Medicine Nephrology
DX: R06.02 Shortness of breath (principal); R91.8 Other nonspecific abnormal finding of lung field; I51.7 Cardiomegaly
CPT/HCPCS: 71046

== ENCOUNTER 2020-11-24 06:05 | Inpatient (IN) | payer MEDICARE, OTHER ==
[2020-11-24] MEDS ORDERED: Atropine Sulfate 1 mg/10 ml Syringe ONE ×2 (06:07→11:20)
[2020-11-24] MEDS ORDERED: Dextrose 50% Abboject 50 ML SYRINGE ONE (06:35)
[2020-11-24] MEDS ORDERED: EPINEPHrine 1 MG/10 ML Abboject SYRINGE IVP SCH (06:45)
[2020-11-24] MEDS ORDERED: Fentanyl CADD 100 ML IV SCH ×2 (06:45→10:00)
[2020-11-24] MEDS ORDERED: EPINEPHrine 1 MG/ML AMP IVP SCH (06:45)
[2020-11-24 07:20] LABS: #Lymphocytes 1.7 thou/uL (1.20-3.40); #Monocytes 0.8 thou/uL (0.11-0.59); #Neutrophils 3.1 thou/uL (1.40-6.50); %Basophils 0.4 % (0.0-1.0); %Eosinophils 0.4 % (0.0-10.0); %Lymphocytes 30.1 % (21.0-51.0); %Monocytes 14.4 % (0.0-10.0); %Neutrophils 54.7 % (42.0-75.0); Hemoglobin 11.5 g/dL (12.0-16.0); Mean Corpuscular HGB CONC 30.7 g/dL (32.0-36.0); Mean Corpuscular Hemoglobin 32.5 pg (27.0-31.0); Mean Platelet Volume 9.7 fL (7.4-10.4); Platelet Count 60 thou/uL (130-400); RBC Distribution Width 14.1 % (11.5-14.5); Red Blood Cell (RBC) Count 3.53 mill/uL (4.20-5.40); White Blood Cell (WBC) Count 5.7 thou/uL (4.8-10.8)
[2020-11-24] MEDS ORDERED: Vancomycin 1 GM/200 ML BAG ONE (07:27)
[2020-11-24 07:32] LABS: ALT (SGPT) Less than 7 U/L (8-55); AST (SGOT) 16 U/L (5-34); Albumin 2.3 g/dL (3.4-4.8); Alkaline Phosphatase 58 U/L (40-110); Anion Gap 22 mmol/L (10-20); BUN (Urea Nitrogen) 27 mg/dL (9.8-20.1); Bilirubin, Total 1.8 mg/dL (0.2-1.2); CK (CPK) 91 U/L (29-168); Calc. Creatinine Clearance 0 mL/min (70-130); Calcium 8.5 mg/dL (7.8-10.44); Carbon Dioxide 20 mmol/L (23-31); Chloride 97 mmol/L (98-107); Globulin 2.7 g/dL (2.4-3.5); Glucose 243 mg/dL (83-110); INR-International Normal Ratio 1.5; Magnesium 1.9 mg/dL (1.6-2.6); PTT 34.1 sec (22.9-36.1); Prothrombin Time 18.7 sec (12.0-14.7); Sodium 135 mmol/L (136-145)
[2020-11-24] MEDS ORDERED: Norepinephrine 8 MG/0.9% NS 250 ML ONE (07:33)
[2020-11-24 07:46] LABS: Actual Bicarbonate (HCO3v) 22 mEq/L (22-28); Analyzer IN Cardio ER; Base Excess -5.5 mEq/L (-2.0 to +3.0); Calcium, Ionized (venous) 1.15 mmol/L (1.16-1.32); Chloride (VBG) 98 mmol/L (98-106); Potassium (VBG) 3.95 mmol/L (3.70-5.30); Sodium 134.7 mmol/L (133-146); pH (venous) 7.25 (7.32-7.43)
[2020-11-24 08:04] LABS: Actual Bicarbonate (HCO3a) 15.2 mEq/L (22-28); Base Excess (BEa) -8.4 mEq/L (-2.0 to +3.0); CO2 Tension 26.3 mmHg (35.0-45.0); Calcium, Ionized (arterial) 1.11 mmol/L (1.12-1.30); Carboxyhemoglobin (COHb) 1.1 gm% (0.0-3.0); O2 Tension (PaO2), arterial 189.3 mmHg (> 70.0); Potassium - ABG Lab 3.97 mmol/L (3.70-5.30); pH, Arterial 7.38 (7.35-7.45)
[2020-11-24 08:05] LABS: Puncture Site LBA
[2020-11-24 08:06] LABS: ALV-art Gradient 490.825 mmHg (0-20)
[2020-11-24 08:08] LABS: Clarity Extra Turbid (Clear)
[2020-11-24 08:09] LABS: Leukocyte Large (Negative); Nitrite Unable to Interpret (Negative)
[2020-11-24 08:10] LABS: Bilirubin Unable to Interpret (Negative); Blood, Urine Large (Negative); Glucose, Urine (Dipstick) Unable to Interpret mg/dL (Negative); Ketone, Urine Unable to Interpret mg/dL (Negative); Protein, Urine (Dipstick) Unable to Interpret mg/dL (Neg-Trace); Urobilinogen UNABLE TO INTERPRET mg/dL (Less than 2)
[2020-11-24 08:11] LABS: Bacteria/HPF 3+ HPF (None Seen); RBC/HPF Greater than 50 HPF (0-3); Squamous Epithelial 0-3 HPF (0-3); WBC/HPF Greater Than 50 HPF (0-3)
[2020-11-24 08:13] LABS: SARS-CoV-2 NAA Rapid Test Not Detected (NotDetected)
[2020-11-24] MEDS ORDERED: Cefepime 2 GM VIAL ONE (08:14)
[2020-11-24] MEDS ORDERED: Aspirin 300 MG Suppository ONE (08:14)
[2020-11-24] MEDS ORDERED: Bisacodyl 10 MG SUPP PR PRN (08:43)
[2020-11-24] MEDS ORDERED: Norepinephrine 8 MG/0.9% NS 250 ML IVPB PRN (08:43)
[2020-11-24] MEDS ORDERED: Heparin 10,000 UNITS/ 10 ML VIAL SLOW IVP SCH (09:00)
[2020-11-24] MEDS ORDERED: Famotidine/PF 20 mg/2ml Vial SLOW IVP SCH (09:00)
[2020-11-24] MEDS ORDERED: Famotidine 20 MG TAB PER TUBE SCH (09:00)
[2020-11-24] MEDS ORDERED: Heparin 25,000 units/D5W 500 ML IVPB SCH (09:00)
[2020-11-24] MEDS ORDERED: Vancomycin 1 GM in Premix Bag 1 BAG IVPB SCH ×2 (09:00→10:45)
[2020-11-24] MEDS ORDERED: Famotidine 40 MG/5 ML Oral Suspension PER TUBE SCH (09:00)
[2020-11-24] MEDS ORDERED: Cefepime 1 GM in Sodium Chloride 0.9% 100 ML IVPB SCH (09:00)
[2020-11-24] MEDS ORDERED: Dextrose 5 % And 0.9 % NaCl 1,000 ML IV SCH (09:00)
[2020-11-24] MEDS ORDERED: Ventilator Sedation Protocol 1 EACH FS ONE (09:15)
[2020-11-24] MEDS ORDERED: Propofol BOLUS 1,000 MG/100 ML VIAL IV PRN (10:00)
[2020-11-24] MEDS ORDERED: Lorazepam 2 MG/ML VIAL SLOW IVP PRN (10:00)
[2020-11-24] MEDS ORDERED: Morphine 2 MG/ML VIAL SLOW IVP PRN (10:00)
[2020-11-24] MEDS ORDERED: Calcium Chloride 1 GM/10 ML Abboject SYRINGE ONE (10:00)
[2020-11-24] MEDS ORDERED: Propofol 1,000 MG/100 ML VIAL IV PRN (10:00)
[2020-11-24] MEDS ORDERED: DISCONTINUE PREVIOUS NARCOTIC PAIN MEDICATIONS AND BENZODIAZEPINES FS SCH (10:00)
[2020-11-24] MEDS ORDERED: Sodium Bicarb 50 MEQ/50 ML Abboject 8.4% SYRINGE ONE (10:00)
[2020-11-24] MEDS ORDERED: EPINEPHrine 1 MG/10 ML Abboject SYRINGE ONE ×2 (10:00→11:20)
[2020-11-24] MEDS ORDERED: Fentanyl BOLUS 250 ML IVPB PRN (10:00)
[2020-11-24 10:09] LABS: Lactic Acid 8.1 mmol/L (0.5-2.2)
[2020-11-24] MEDS ORDERED: Vancomycin HCl 500 MG in Sodium Chloride 0.9% 100 ML IVPB SCH (10:45)
[2020-11-24] MEDS ORDERED: Vancomycin HCl 750 MG in Sodium Chloride 0.9% 250 ML 250 ML IVPB SCH (10:45)
[2020-11-24] MEDS ORDERED: Vancomycin HCl 250 MG in Sodium Chloride 0.9% 100 ML IVPB SCH (10:45)
[2020-11-24] MEDS ORDERED: Albumin 25% 25 GM/100 ML BOT IVPB SCH (10:45)
[2020-11-24] MEDS ORDERED: HOLD VANCOMYCIN FOR LEVEL >20 FS SCH (10:45)
[2020-11-24] MEDS: Aspirin 300 MG Suppository PR SCH (10:53)
[2020-11-24] MEDS ORDERED: Atropine Sulfate 1 mg/1 ml Vial IVP PRN (11:31)
[2020-11-24 11:48] LABS: Actual Bicarbonate (HCO3a) 15.7 mEq/L (22-28); Base Excess (BEa) -8.8 mEq/L (-2.0 to +3.0); CO2 Tension 29.5 mmHg (35.0-45.0); Calcium, Ionized (arterial) 1.08 mmol/L (1.12-1.30); Carboxyhemoglobin (COHb) 0.7 gm% (0.0-3.0); Hemoglobin (Hb) 10.8 g/dL (12.0-16.0); O2 Tension (PaO2), arterial 382.8 mmHg (> 70.0); Potassium - ABG Lab 4.28 mmol/L (3.70-5.30); pH, Arterial 7.35 (7.35-7.45)
[2020-11-24 11:49] LABS: Puncture Site LBA
[2020-11-24 11:51] LABS: ALV-art Gradient 293.325 mmHg (0-20)
[2020-11-24] MEDS ORDERED: DOBUTamine 500 mg/250 ml 250 ML IVPB SCH (12:02)
[2020-11-24 12:27] LABS: Hemoglobin 11.2 g/dL (12.0-16.0); Platelet Count 60 thou/uL (130-400)
[2020-11-24] MEDS ORDERED: DOBUTamine 500 mg/250 ml 250 ML ONE (12:30)
[2020-11-24] MEDS ORDERED: DOPamine 400 MG/D5W 250 ML 250 ML IVPB SCH (12:30)
[2020-11-24] MEDS: Meropenem 500 MG in Sodium Chloride 0.9% 100 ML IVPB SCH (13:08)
[2020-11-24] MEDS: Dextrose 5 % And 0.9 % NaCl 1,000 ML IV SCH ×2 (15:24→23:29)
[2020-11-24 18:45] LABS: Hemoglobin 10.6 g/dL (12.0-16.0); Platelet Count 61 thou/uL (130-400)
[2020-11-24 19:06] LABS: Lactic Acid 7.7 mmol/L (0.5-2.2)
[2020-11-24] MEDS ORDERED: Cyanocobalamin (Vitamin B-12) 1,000 MCG TAB PO SCH (21:00)
[2020-11-24] MEDS ORDERED: Atorvastatin Calcium 40 MG TAB PO SCH (21:00)
[2020-11-24] MEDS ORDERED: Folic Acid 1 MG TAB PO SCH (21:00)
[2020-11-25 01:10] LABS: Hemoglobin 10.8 g/dL (12.0-16.0); Platelet Count 61 thou/uL (130-400)
[2020-11-25 05:45] LABS: Hemoglobin 10.4 g/dL (12.0-16.0); Lymphocytes 17 % (21-51); MDiff Complete? YES; Mean Corpuscular HGB CONC 32.3 g/dL (32.0-36.0); Mean Platelet Volume 11.2 fL (7.4-10.4); Monocytes 10 % (0-10); Neutrophil 73 % (42-75); Platelet Count 58 thou/uL (130-400); Platelet Morphology Comment Appears Decreased; RBC Distribution Width 14.9 % (11.5-14.5); Red Blood Cell (RBC) Count 3.16 mill/uL (4.20-5.40); White Blood Cell (WBC) Count 9.8 thou/uL (4.8-10.8)
[2020-11-25 05:46] LABS: Lactic Acid 4.4 mmol/L (0.5-2.2)
[2020-11-25 06:00] VITALS: BMI 18.4
[2020-11-25 06:10] LABS: CKMB 31.5 ng/mL (0-6.6)
[2020-11-25 06:45] LABS: Albumin 2.7 g/dL (3.4-4.8)
[2020-11-25 06:46] LABS: Chloride 102 mmol/L (98-107); Sodium 133 mmol/L (136-145)
[2020-11-25 06:47] LABS: Glucose 165 mg/dL (83-110); Triglycerides 44 mg/dL (Less than 150)
[2020-11-25 06:48] LABS: Globulin 3.8 g/dL (2.4-3.5)
[2020-11-25 06:49] LABS: Anion Gap 21 mmol/L (10-20); Carbon Dioxide 19 mmol/L (23-31)
[2020-11-25 06:52] LABS: Alkaline Phosphatase 46 U/L (40-110); BUN (Urea Nitrogen) 31 mg/dL (9.8-20.1); Bilirubin, Total 1.9 mg/dL (0.2-1.2); Calc. Creatinine Clearance 8 mL/min (70-130)
[2020-11-25 06:53] LABS: ALT (SGPT) 14 U/L (8-55); AST (SGOT) 110 U/L (5-34); Cardiac Risk 2.9 (Less than 4.5); Cholesterol 58 mg/dl (< 200 Desired); HDL Cholesterol 20 mg/dL (>60 Neg Risk); LDL Cholesterol, Calculated 29 mg/dL
[2020-11-25 07:21] VITALS: TEMP 100.8
[2020-11-25 07:50] LABS: Vancomycin, Random 12.5 ug/mL (See Comment)
[2020-11-25] MEDS ORDERED: Famotidine 20 MG TAB PER TUBE SCH (09:00)
[2020-11-25] MEDS ORDERED: Famotidine/PF 20 mg/2ml Vial SLOW IVP SCH (09:00)
[2020-11-25 09:52] LABS: Calcium 7.3 mg/dL (7.8-10.44); Potassium 3.6 mmol/L (3.5-5.1)
[2020-11-25 09:53] LABS: Protein, Total 4.9 g/dL (5.8-8.1)
[2020-11-25] MEDS: Aspirin 300 MG Suppository PR SCH (09:54)
[2020-11-25] MEDS: Dextrose 5 % And 0.9 % NaCl 1,000 ML IV SCH (09:59)
[2020-11-25 10:56] VITALS: BP 109/35
[2020-11-25] MEDS ORDERED: Morphine 10 MG/ML VIAL SLOW IVP PRN (12:33)
[2020-11-25] MEDS ORDERED: FLU VACC QS2020-21(65YR UP)/PF 240 MCG/0.7 ML SYRINGE IM ONE (13:15)
[2020-11-25] MEDS: Meropenem 500 MG in Sodium Chloride 0.9% 100 ML IVPB SCH (13:49)
[2020-11-25] MEDS ORDERED: Cefepime 0.5 GM, Admixture Fee 1 EACH in Sodium Chloride 0.9% 100 ML IVPB SCH (18:00)
== END 2020-11-25 15:57 | disposition expired ==
LOC: ERS 06:05 → CCU 07:54
PROVIDERS: ADMIT Internal Medicine; ATTEND Internal Medicine
PROC: 06HY33Z Insertion of Infusion Device into Lower Vein, Percutaneous Approach (ICD-10-PCS; principal; 2020-11-24)
PROC: 0D9670Z Drainage of Stomach with Drainage Device, Via Natural or Artificial Opening (ICD-10-PCS; 2020-11-24)
PROC: 0BH17EZ Insertion of Endotracheal Airway into Trachea, Via Natural or Artificial Opening (ICD-10-PCS; 2020-11-24)
PROC: 5A1945Z Respiratory Ventilation, 24-96 Consecutive Hours (ICD-10-PCS; 2020-11-24)
DX: I21.09 ST elevation (STEMI) myocardial infarction involving other coronary artery of anterior wall (principal); N18.6 End stage renal disease; J96.21 Acute and chronic respiratory failure with hypoxia; I50.23 Acute on chronic systolic (congestive) heart failure; G93.41 Metabolic encephalopathy; I13.2 Hypertensive heart and chronic kidney disease with heart failure and with stage 5 chronic kidney disease, or end stage renal disease; I45.89 Other specified conduction disorders; E87.2 Acidosis; I25.10 Atherosclerotic heart disease of native coronary artery without angina pectoris; K21.9 Gastro-esophageal reflux disease without esophagitis; E78.5 Hyperlipidemia, unspecified; I48.0 Paroxysmal atrial fibrillation; E78.00 Pure hypercholesterolemia, unspecified; Z66 Do not resuscitate; R57.0 Cardiogenic shock; Z51.5 Encounter for palliative care; E03.9 Hypothyroidism, unspecified; E53.8 Deficiency of other specified B group vitamins; Z99.2 Dependence on renal dialysis; Z95.0 Presence of cardiac pacemaker; Z88.0 Allergy status to penicillin; Z88.8 Allergy status to other drugs, medicaments and biological substances; Z88.6 Allergy status to analgesic agent; Z90.49 Acquired absence of other specified parts of digestive tract; Z98.890 Other specified postprocedural states; Z78.1 Physical restraint status; Z79.82 Long term (current) use of aspirin; Z79.890 Hormone replacement therapy; Z91.041 Radiographic dye allergy status; Z99.81 Dependence on supplemental oxygen; I25.2 Old myocardial infarction; Z20.822 Contact with and (suspected) exposure to COVID-19
CPT/HCPCS: 0240U; 31500; 36415; 36416; 36556; 36600; 51702; 70450; 71045; 80053; 80061; 80202; 81003; 81015; 82533; 82550; 82553; 82805; 83605; 83735; 84484; 85007; 85025; 85027; 85610; 85730; 86140; 87040; 87077; 87086; 87186; 90935; 93005; 93010; 93306; 94002; 94003; 96365; 96366; 96368; 96375; 96376; 99292; G0257; J0171; J0461; J0692; J1250; J1644; J2060; J2185; J2270; J3010; J3370; J3490; P9047; S0028